=== PATIENT | male | born 1980 | race Caucasian/White ===

== ENCOUNTER → 2017-02-28 | Outpatient (CLI) | payer MEDICAID ==
--- NOTE | 2017-02-28 17:42 | Diagnostic Imaging Report ---
INDICATION: Scalp mass. FINDINGS: There is a 6.5 x 1.1 x 6.4 cm hypoechoic lesion along the superior convexity of the left aspect of the parietal skull. This is superficial to the outer table of the skull. This does not demonstrate evidence of significant vascularity. IMPRESSION: 1. Nonspecific lesion within the soft tissues of the left scalp. This does not demonstrate evidence of significant vascularity. Considerations would include a hematoma or a soft tissue mass. Further characterization with cross-sectional imaging is recommended. CT would be useful to evaluate for any osseous changes or erosion. MRI with contrast would be useful for complete characterization. Dictated by: Dictated on workstation # [id number]
== END ==
LOC: RAD 16:26
PROVIDERS: ATTEND Nurse Practitioner Community Health
DX: R22.0 Localized swelling, mass and lump, head (principal)
CPT/HCPCS: 76536

== ENCOUNTER 2017-03-14 08:53 | Outpatient (CLI) | payer MEDICAID ==
[~2017-03-14] VITALS: Ht 177.8 cm; Wt 86.2 kg
[2017-03-16] MEDS ORDERED: HYDR-3812 PO (10:10)
== END 2017-03-14 10:53 ==
LOC: PREOP 08:53
PROVIDERS: ATTEND Surgery
DX: Z01.818 Encounter for other preprocedural examination (principal); R22.0 Localized swelling, mass and lump, head; R22.2 Localized swelling, mass and lump, trunk

== ENCOUNTER 2017-03-16 07:35 | Day surgery (SDC) | payer MEDICAID ==
[~2017-03-16] VITALS: Ht 177.8 cm; Wt 86.2 kg
--- NOTE | 2017-03-16 07:51 | Progress Note-Pre Operative ---
Pre-Operative Progress Note H&P Reviewed The H&P was reviewed, patient examined and no changes noted. Date Seen by Provider: Mar 16, 2017 Time Seen by Provider: 07:50 Date H&P Reviewed: Mar 16, 2017 Time H&P Reviewed: 07:50 Pre-Operative Diagnosis: head and back mass BEENA VAZQUEZ DO Mar 16, 2017 07:51
[2017-03-16] MEDS ORDERED: CATHETER FLUSH 10 ML SYR IV PRN (08:00)
[2017-03-16] MEDS ORDERED: ceFAZolin 2 GM/NS 50 ML IV ONE (08:00)
[2017-03-16] MEDS ORDERED: LIDOCAINE JELLY 2% (XYLOCAINE) 5 ML TUBE ONE (08:00)
[2017-03-16] MEDS ORDERED: MIDAZOLAM 2 MG/2 ML (VERSED) VIAL ONE (08:00)
[2017-03-16] MEDS ORDERED: proPOfol 200 MG/20 ML (DIPRIVAN) VIAL IV ONE (08:00)
[2017-03-16] MEDS ORDERED: LACTATED RINGERS 1,000 ML IV ONE (08:00)
[2017-03-16] MEDS ORDERED: LIDOCAINE PF 2% 5 ML (XYLOCAINE) VIAL ONE (08:00)
[2017-03-16] MEDS ORDERED: ROCURONIUM 50 MG/5 ML (ZEMURON) VIAL IV ONE (08:00)
[2017-03-16] MEDS ORDERED: ONDANSETRON 4 MG/2 ML (SDV) Z0FRAN ONE (08:00)
[2017-03-16] MEDS ORDERED: fentaNYL INJECTION 100 MCG/2 ML AMP ONE (08:01)
[2017-03-16 08:18] VITALS: BP 135/103
[2017-03-16] MEDS ORDERED: LACTATED RINGERS 1,000 ML IV SCH (08:30)
[2017-03-16] MEDS ORDERED: BUPIVACAINE 0.5% 30 ML (SENSORCAINE) VIAL ONE (08:34)
[2017-03-16] MEDS ORDERED: LIDOCAINE 1% INJ 20 ML (XYLOCAINE) VIAL ONE (08:34)
[2017-03-16] MEDS ORDERED: morphine INJ 10 MG/ML 1ML (SYR OR VIAL) ONE (09:23)
[2017-03-16] MEDS ORDERED: HYDR-3812 PO (10:10)
--- NOTE | 2017-03-16 10:11 | Discharge Inst-Simple/Standard ---
Discharge Inst-Standard Discharge Medications New, Converted or Re-Newed RX: RX on Chart Patient Instructions/Follow Up Plan of Care/Instructions/FU: 10-14 days sole Activity as Tolerated: Yes Discharge Diet: Regular Diet Other Inst to Patient Follow up Appt: Make appointment for 10-14 days Instructions: May shower in 24 hours, no tub bath or soaking. Use incentive spirometer at home as directed. No Smoking Skin/Wound Care: May remove bandages in 24 hours. Keep area clean and dry. Symptoms to Report: Appetite Changes, Extremity Discoloration, Numbness/Tingling, Swelling Increased , Bleeding Excessive, Eyesight Changes, Pain Increased, Urine Color Change, Constipation(Persistent), Fever over 101 degree F, Pain/Pressure in chest, Urinating Difficulty, Cough Up/Vomit Blood, Heart Beat Irreg/Pounding, Pain/ Pressure in jaw, Vaginal Bleeding Increase, Cramps in feet or legs, Lightheadedness, Pain/Pressure in shoulder, Diarrhea(Persistent), Memory Changes Suddenly, Questions/Concerns, Weight gain consecutive days, Dizziness/ Fainting, Nausea/Vomiting, Shortness of Breath, Weight gain over 2 pounds If questions or concerns contact your physician Or seek help at emergency department. BEENA VAZQUEZ DO Mar 16, 2017 10:11
--- NOTE | 2017-03-16 10:12 | Progress Note-Post Operative ---
Post-Operative Progess Note Surgeon (s)/Patient Case Coordinator (s) Surgeon BEENA VAZQUEZ DO Patient Case Coordinator: na Pre-Operative Diagnosis head and back mass Post-Operative Diagnosis lipoma head and back Procedure & Operative Findings Date of Procedure 03/16/17 Procedure Performed/Findings excision scalp lipoma 7x5.5x1.2 cm and back lipoma [id number] Anesthesia Type gen Estimated Blood Loss Estimated blood loss (mL): min Specimens/Packing Specimens Removed lipomas BEENA VAZQUEZ DO Mar 16, 2017 10:12
[2017-03-16] MEDS ORDERED: SEVOFLURANE (ULTANE) 15 ML INHAL SOLN ONE (10:14)
[2017-03-16] MEDS ORDERED: ONDANSETRON 4 MG/2 ML (SDV) Z0FRAN IVP PRN (10:30)
[2017-03-16] MEDS ORDERED: MEPERIDINE (DEMEROL) INJ 50 MG/ML IVP PRN (10:30)
[2017-03-16] MEDS ORDERED: morphine INJ 10 MG/ML 1ML (SYR OR VIAL) IVP PRN (10:30)
[2017-03-16 11:10] VITALS: BP 138/86
[2017-03-16] MEDS ORDERED: HYDROcodone/APAP 5 MG/325 MG (LORTAB) TAB PO ONE (11:15)
[2017-03-16 11:40] VITALS: BP 130/97
[2017-03-16 11:50] VITALS: BP 130/97
[2017-03-16 12:26] VITALS: BP 138/96
--- NOTE | 2017-03-17 11:43 | OPERATIVE REPORT ---
DATE OF SERVICE: 03/16/2017 PREOPERATIVE DIAGNOSIS: Scalp and back mass. POSTOPERATIVE DIAGNOSIS: Scalp and back mass. PROCEDURE: Excision lipoma scalp 7 x 5.5 x 1.2 cm and back 3.5 x 3 x 1 cm. SURGEON: Beena Burgess DO ANESTHESIA: General. ESTIMATED BLOOD LOSS: Minimal. COMPLICATIONS: None. INDICATIONS: The patient is a 36-year-old male who has had a mass on the scalp and back and cause him some slight discomfort. He understands risks and benefits of procedures and wished to proceed with procedure. Consent was signed in the chart. PROCEDURE: The patient was taken to the operating suite and prepped and draped in sterile fashion. Surgical pause was performed. An incision was made over the palpable mass in the back. Cautery was used to dissect down through skin and the lipoma was encountered. Blunt dissection around it was used to evacuate the lipoma. The above measurements on size noted. This was in the subcutaneous plane. Copious amounts of irrigation was used to irrigate the wound. The subcutaneous tissues were then reapproximated using 3-0 Vicryl. Skin was then closed using 3-0 nylon in a simple interrupted fashion. The area was then washed and dried and sterile bandage was applied. Attention was then made to the large scalp mass. A #15 blade scalpel was used to make an incision over the palpable mass. Once through the skin, the cautery was used to dissect down through the subcutaneous tissues. The mass was then able to be visualized. The finger dissection was used to dissect around the mass, which appears to be a lipoma. Once around this, it was able to be removed through the incision. Copious amounts of irrigation was used to irrigate the wound and the skin was then closed with myles. The area was then washed and dried and antibiotic ointment was then placed over the incision. The patient tolerated procedure well without any complications and was taken to recovery room in stable condition. Job ID: [id number] DocumentID: [id number] Dictated Date: 03/16/2017 14:58:24 Automobile Dealer Date: 03/16/2017 22:38:30 Dictated By: BEENA BURGESS DO
== END 2017-03-16 11:50 | disposition home or self-care (01) ==
LOC: SDC 07:35
PROVIDERS: ATTEND Surgery
DX: D17.0 Benign lipomatous neoplasm of skin and subcutaneous tissue of head, face and neck (principal); D17.1 Benign lipomatous neoplasm of skin and subcutaneous tissue of trunk; F17.210 Nicotine dependence, cigarettes, uncomplicated
CPT/HCPCS: 87081; 88304

== ENCOUNTER 2019-05-17 14:02 | Inpatient (IN) | payer OTHER ==
[~2019-05-17] VITALS: Ht 177 cm; Wt 76.7 kg
[2019-05-17] VITALS (12 sets, daily range): BP systolic 104–138; BP diastolic 79–97
[~2019-05-17 14:02] MED LIST: ACHD5005 PO
--- NOTE | 2019-05-17 14:02 | NUR ---
RIGHT LEG DEFORMITY NOTED ET POSITVE PEDAL PULSE FELT.
[2019-05-17] MEDS ORDERED: fentaNYL INJECTION 100 MCG/2 ML AMP INJ ONE (14:04)
--- NOTE | 2019-05-17 14:06 | NUR ---
PT TALKING TO CASTING SORTER ET PT REQUEST AN DIRECTOR CONSUMER AFFAIRS.
--- NOTE | 2019-05-17 14:10 | NUR ---
JENSEN SPLINT BEING APPLIED TO RIGHT LEG AT THIS TIME.
[2019-05-17] MEDS ORDERED: fentaNYL INJECTION 100 MCG/2 ML AMP IVP ONE ×4 (14:15→17:30)
--- NOTE | 2019-05-17 14:16 | NUR ---
POSITIVE PEDAL PULSE FELT BY DR RICCI AFTER SPLINT PLACED
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
--- NOTE | 2019-05-17 14:19 | NUR ---
NO PULSE FELT RIGHT FOOT BY DR DIAZ.
[2019-05-17 14:21] LABS: HEMOGLOBIN 16.3 G/DL (13.3-17.7); RED CELL DISTRIBUTION WIDTH 13.4 % (10.0-14.5)
--- NOTE | 2019-05-17 14:21 | NUR ---
PEDAL PULSE DOPPLERED BY DR DIAZ ET JENSEN TRACTION REAPPLIED.
--- NOTE | 2019-05-17 14:23 | NUR ---
NO PULSE FELT BY DR DIAZ ET TRACTION LOOSENED ET PULSE HEARD BY DOPPLER BY DR DIAZ. DR DIAZ AND ORTHO TEAM ROLLING PT WITH C-SPINE PERCAUTIONS AT THIS TIME.
--- NOTE | 2019-05-17 14:27 | NUR ---
NEEDLE TO LEFT CHEST REMOVED BY MARANDA Colon RN PER DR DIAZ VERBAL ORDER AFTER REVIEWING CHEST XRAY. LEFT DEFORMED CLAVICLE NOTED AT THIS TIME ET DR DIAZ AWARE.
--- NOTE | 2019-05-17 14:29 | NUR ---
RIGHT PEDAL PULSE DOPPLERED BEFORE TRANSPORT TO CT.
[2019-05-17] MEDS ORDERED: NS 100 ML (IVPB) BAG IV ONE (14:30)
[2019-05-17] MEDS ORDERED: IOHEXOL 350 MG/ML 100 ML (OMNIPAQUE 350) VIAL IV ONE (14:30)
[2019-05-17] MEDS ORDERED: HOLD METFORMIN - RECEIVED CONTRAST 20 ML VIAL IV SCH (14:30)
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
[2019-05-17 14:43] LABS: ALANINE AMINOTRANSFERASE 256 U/L (0-55); ALBUMIN 4.4 GM/DL (3.2-4.5); ALKALINE PHOSPHATASE 53 U/L (40-136); BILIRUBIN,DIRECT 0.1 MG/DL (0.0-0.3); BILIRUBIN,INDIRECT 0.2 MG/DL; BILIRUBIN,TOTAL 0.3 MG/DL (0.1-1.0); BUN/CREATININE RATIO 11; CALCIUM 8.7 MG/DL (8.5-10.1); CARBON DIOXIDE 20 MMOL/L (21-32); CHLORIDE 106 MMOL/L (98-107); CREATINE KINASE 581 U/L (30-200); CREATININE SERUM 1.06 MG/DL (0.60-1.30); GFR ESTIMATED > 60; GLUCOSE 103 MG/DL (70-105); MAGNESIUM 2.3 MG/DL (1.6-2.4); PHOSPHORUS 3.9 MG/DL (2.3-4.7); POTASSIUM 3.9 MMOL/L (3.6-5.0); SODIUM 142 MMOL/L (135-145); TOTAL PROTEIN 7.4 GM/DL (6.4-8.2)
[2019-05-17 14:55] LABS: FIBRIN DEGRADATION PRODUCTS 14.84 UG/ML (0.00-0.49); PROTHROMBIN TIME PATIENT 13.1 SEC (12.2-14.7)
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
--- NOTE | 2019-05-17 15:41 | NUR ---
SHERIFF SMALLT HERE FOR LEGAL BLOOD DRAW.
[2019-05-17 15:44] LABS: BILIRUBIN,URINE NEGATIVE (NEGATIVE); CLARITY,URINE CLEAR; COLOR,URINE YELLOW; GLUCOSE, URINE (UA) NEGATIVE (NEGATIVE); KETONES,URINE NEGATIVE (NEGATIVE); LEUKOCYTE ESTERASE ,URINE NEGATIVE (NEGATIVE); NITRITE,URINE NEGATIVE (NEGATIVE); PROTEIN,URINE TRACE (NEGATIVE)
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
[2019-05-17] MEDS ORDERED: NS IV 1000 ML 1,000 ML IV ONE (15:48)
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
[2019-05-17 15:57] LABS: BACTERIA,URINE NEGATIVE /HPF; HYALINE CASTS, URINE 0-2 /LPF
[2019-05-17 15:58] LABS: AMPHETAMINE SCREEN, URINE NEGATIVE (NEGATIVE); BARBITURATE SCREEN URINE NEGATIVE (NEGATIVE); BENZODIAZEPINES SCREEN URINE NEGATIVE (NEGATIVE); CANNABINOID SCREEN, URINE POSITIVE (NEGATIVE); COCAINE SCREEN URINE NEGATIVE (NEGATIVE); METHADONE STAT NEGATIVE (NEGATIVE); METHAMPHETAMINE SCREEN URINE S NEGATIVE (NEGATIVE); OPIATE SCREEN URINE POSITIVE (NEGATIVE); OXYCODONE STAT NEGATIVE (NEGATIVE); PROPOXYPHENE STAT NEGATIVE (NEGATIVE); TRICYCLIC ANTIDEPRESSANTS SCRE NEGATIVE (NEGATIVE)
[2019-05-17] MEDS ORDERED: ceFAZolin 2 GM/50 ML NS 50 ML IV ONE (16:00)
[2019-05-17] MEDS ORDERED: TETANUS,DIPTH,PERTUSS P/F (BOOSTRIX) 0.5 ML VIAL IM ONE (16:00)
--- NOTE | 2019-05-17 16:12 | NUR ---
KARINE FROM ANESTHESIA HERE.
--- NOTE | 2019-05-17 16:15 | NUR ---
TO XRAY WITH RADIOLOGY AND THIS RN
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
--- NOTE | 2019-05-17 16:36 | NUR ---
RIGHT PEDAL PULSE DOPPLERED WITHOUT DIFFICULTY.
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
[2019-05-17] MEDS ORDERED: ONDANSETRON 4 MG/2 ML (SDV) Z0FRAN ONE ×2 (16:54→20:54)
[2019-05-17] MEDS ORDERED: LIDOCAINE PF 2% 5 ML (XYLOCAINE) VIAL ONE (16:54)
[2019-05-17] MEDS ORDERED: SUCCINYLCHOLINE INJ 100 MG/5 ML SYR ONE (16:54)
[2019-05-17] MEDS ORDERED: proPOfol 200 MG/20 ML (DIPRIVAN) VIAL IV ONE ×2 (16:54→20:10)
[2019-05-17] MEDS ORDERED: morphine INJ 10 MG/ML 1ML (SYR OR VIAL) IVP STA (16:55)
--- NOTE | 2019-05-17 16:56 | NUR ---
DR GRECO HERE TO SEE PT.
[2019-05-17] MEDS ORDERED: MIDAZOLAM 2 MG/2 ML (VERSED) VIAL ONE (17:07)
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
[2019-05-17] MEDS ORDERED: morphine INJ 10 MG/ML 1ML (SYR OR VIAL) IVP ONE (17:30)
[2019-05-17] MEDS ORDERED: ONDANSETRON 4 MG/2 ML (SDV) Z0FRAN IVP PRN ×2 (17:30→19:00)
[2019-05-17] MEDS ORDERED: MEPERIDINE (DEMEROL) INJ 50 MG/ML IVP ONE (17:30)
[2019-05-17] MEDS ORDERED: HYDROmorphone 2 MG/ML VIAL (DILAUDID) IV ONE (17:30)
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
[2019-05-17] MEDS: LACTATED RINGERS 1,000 ML IV PRN ×2 (17:46→19:38)
[2019-05-17] MEDS ORDERED: ceFAZolin INJECTION 2,000 MG ONE (17:56)
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
[2019-05-17] MEDS ORDERED: ceFAZolin 2 GM/50 ML NS 50 ML IV SCH (18:00)
[2019-05-17] MEDS ORDERED: PHENYLEPHRINE INJ 10 MG/ML (FOR DRIP KITS ONLY) ONE (18:26)
[2019-05-17] MEDS ORDERED: fentaNYL INJECTION 100 MCG/2 ML AMP ONE (18:37)
[2019-05-17] MEDS ORDERED: morphine INJ 10 MG/ML 1ML (SYR OR VIAL) IVP PRN ×2 (19:00→22:45)
[2019-05-17] MEDS ORDERED: ENOXAPARIN 30 MG/0.3 ML (LOVENOX) SYR SC SCH (19:00)
[2019-05-17] MEDS ORDERED: NEO/POLY/BAC (NEOSPORIN) OINT 15 GM TUBE ONE (19:40)
[2019-05-17] MEDS ORDERED: ceFAZolin INJECTION 1,000 MG VIAL IV ONE (19:45)
[2019-05-17] MEDS ORDERED: ESMOLOL 100 MG/10 ML (BREVIBLOC) VIAL ONE (19:53)
--- NOTE | 2019-05-17 20:23 | Diagnostic Imaging Report ---
INDICATION: Left-sided pneumothorax. COMPARISON: 05/17/2019. EXAMINATION: Single view of the chest was obtained. FINDINGS: Multiple left-sided rib fractures. There is some increasing infiltrate in the left upper lobe concerning for a pulmonary contusion. There is some new irregularity involving the left upper mediastinum. Vascular injury is not excluded. There is no definable pneumothorax. The right lung is clear. ET tube and NG tube are in good position. IMPRESSION: 1. Worsening left upper lobe pulmonary contusion with some new findings to suggest mediastinal injury. Consider repeat CTA of the chest. 2. Multiple left upper rib fractures with associated left clavicle fracture. 3. No definable pneumothorax. 4. Well-positioned ET tube and NG tube. Dictated by: Dictated on workstation # [id number]
[2019-05-17] MEDS ORDERED: SEVOFLURANE (ULTANE) 15 ML INHAL SOLN ONE ×3 (20:29→20:54)
[2019-05-17] MEDS ORDERED: ROCURONIUM 10 MG/ML 5 ML SYRINGE IV ONE ×2 (20:50)
[2019-05-17] MEDS: LACTATED RINGERS 1,000 ML IV SCH (21:35)
--- NOTE | 2019-05-17 21:40 | Operative Report - Ortho ---
Operative Report Surgeon (s)/Environmental Compliance Engineer (s) Surgeon ZANE GRECO MD Environmental Compliance Engineer n/a Pre-Operative Diagnosis midshaft fracture right femur; medial malleolar fracture left ankle Post-Operative Diagnosis same Operative Report Date of Procedure: May 17, 2019 Name of Procedure Performed: Closed IM rodding right femur fracture Open reduction internal fixation left medial malleolar fracture Irrigation of partial-thickness laceration left elbow with closure Description & Findings The patient was evaluated in the ER and treatment options were discussed. I recommended an IM rodding of the right femur and open reduction internal fixation of the left medial malleolus. Also he has a wound posterior left elbow that is partial thickness but I recommended closure with myles Patient was taken to operating room on the ER stretcher. After administration of general anesthesia he was transferred to the OR fracture table. He was given 2 g Ancef IV preoperatively. A timeout was done prior to the procedure. The right hip and thigh were then prepped and draped in the usual sterile manner. The right foot was placed in the traction boot traction was applied to the leg. Images used to visualize the fracture and the fracture could be lined up fairly well and out to length with traction countertraction with peroneal post. The left leg was placed in the well leg matos. An incision was made just proximal to the greater trochanter. This was taken down through subjacent tissue and through the gluteal fascia. The greater trochanter was palpated and a guidepin was placed through the tip of the greater trochanter slightly medial. This was then overreamed. The initial guidewire was removed and a beaded guidewire was inserted through the opening to the fracture site. The fracture was reduced with the reduction device and the guidewire was advanced across the fracture site into the distal femur. This was measured and a 400 mm mukesh was selected. The femur was reamed sequentially from 8.5-13 mm with good endosteal reaming just proximal to the fracture. A 12 mm x 4 mm mukesh was selected. This was inserted over the guidewire and there was some difficulty advancing it just distal to the lesser trochanter. Evaluation of the femur revealed an abnormal bow. The mukesh was removed and the proximal segment was reamed up to 16 mm to allow advancement of the mukesh without any difficulty. The advancement the mukesh was observed with image and at the fracture site was gently tapped across fracture site into the distal femur. This reduced the fracture very well. There was some comminution of the femur at the fracture site. The mukesh was advanced to approximately the level of the upper patella. At this point it was felt that rotation was correct and 2 screws were placed proximally through the guide dynamic and one static from lateral to medial at the level of the lesser trochanter. These were drilled measured and appropriate length screws were inserted. At this point the leg was brought out into abduction. Traction was removed prior to inserting the mukesh distally but once the tip of the mukesh was beyond the fracture. Images brought into lateral to place the distal screws. The initial slot screw was inserted after drilling measuring and inserting the appropriate length screw. Next the proximal round hole was filled with a distal locking screw again drilling measuring and inserting the appropriate length screws. Freehand technique was used for the distal screws. Image was used to visualize the entire femur and excellent alignment was noted at the fracture site. Cortical widths was equal. Screws are in good position proximal and distal. This point the wounds were irrigated with normal saline. The proximal wound was closed with 0 Vicryl for fascia 2-0 Vicryl for subcutaneous tissue and myles for skin. The neck incisions for the 4 screws were closed with myles. Wounds were dressed with antibiotic ointment, Adaptic and 4 x 4's. An ABG was applied proximally. These were taped in position. The dressings were removed and rotation was checked. The patient had equal rotation internally and externally both legs. At this point the right foot was taken out of the traction boot and the lower portion of the bed was reinserted. The left leg was taken out of the well leg matos. A tourniquet was applied to left thigh and the left foot and lower leg were prepped and draped in the usual sterile manner. After elevation of the leg during the prepping and draping the tourniquet was inflated to 250 mmHg. Incision was made over the medial malleolus avoiding superficial abrasions. This is taken down through subjacent tissue. The periosteum was elevated over the fracture site. The fracture was reduced and held with a reduction clamp is 2 guidewires were inserted through the tip of the medial malleolus across fracture site into the distal tibia. 2-4.0 mm cannulated partially-threaded screws were then inserted after drilling the cortex and then inserting the screws over guidewires. Images used to visualize the fracture reduction and screw insertion and excellent alignment was noted. The mortise was symmetrical. No widening of the syndesmosis. No fracture of the distal fibula was noted. At this point the guidewires were removed. The tourniquet was deflated after 44 minutes. The wound was irrigated and then closed with 2-0 Vicryl for subjacent tissue and myles for the skin. Wound was dressed with antibiotic ointment, Adaptic and 4 x 4's and then wrapped with web roll from the toes to the tibial tuberosity. A posterior sugar tong splint was applied and these were wrapped with Ra wraps. Once the splint had hardened with the ankle at 90 the foot and ankle were placed on pillows. Prior to addressing the left elbow was scrubbed with a scrub brush and prepped. The wound was cleaned. The wound was closed with myles. It was dressed with antibiotic ointment, Adaptic and 4 x 4's and wrapped with Kerlix and an Ra wrap. The patient was then transferred to his hospital bed and to recovery room in good condition he tolerated procedure well Blood loss on the femur was 100 mL's. Left ankle was 20 mL. blood replacementnone No drains Complications Tourniquet time left leg was 44 minutes at 250 mmHg Anesthesia Type Gen. Packing none. Specimen(s) collected/removed None ZANE GRECO MD May 17, 2019 21:40
[2019-05-17] MEDS ORDERED: ceFAZolin INJECTION 500 MG in NS (IVPB) 50 ML IV SCH (22:00)
[2019-05-17] MEDS ORDERED: morphine INJ 4 MG/ML 1 ML (VIAL/SYRINGE) ONE (22:35)
[2019-05-17] MEDS: morphine INJ 4 MG/ML 1 ML (VIAL/SYRINGE) IVP PRN (22:47)
[2019-05-18] VITALS (22 sets, daily range): BP systolic 86–145; BP diastolic 59–98
[2019-05-18] MEDS: morphine INJ 4 MG/ML 1 ML (VIAL/SYRINGE) IVP PRN (00:24)
[2019-05-18] MEDS ORDERED: HYDROmorphone 2 MG/ML VIAL (DILAUDID) IV ONE (01:15)
[2019-05-18] MEDS: LACTATED RINGERS 1,000 ML IV SCH (02:32)
[2019-05-18 03:05] LABS: BASOPHILS % (AUTO) 0 % (0-10); EOSINOPHILS % (AUTO) 0 % (0-10); HEMATOCRIT 37 % (40-54); HEMOGLOBIN 12.6 G/DL (13.3-17.7); LYMPHOCYTES # (AUTO) 0.7 X 10^3 (1.0-4.0); LYMPHOCYTES % (AUTO) 5 % (12-44); MEAN CORPUSCULAR HEMOGLOBIN 31 PG (25-34); MEAN CORPUSCULAR HGB CONC 34 G/DL (32-36); MEAN CORPUSCULAR VOLUME 89 FL (80-99); MEAN PLATELET VOLUME 9.7 FL (7.4-10.4); MONOCYTES # (AUTO) 1.9 X 10^3 (0.0-1.0); MONOCYTES % (AUTO) 13 % (0-12); NEUTROPHILS # (AUTO) 12.1 X 10^3 (1.8-7.8); NEUTROPHILS % (AUTO) 82 % (42-75); PLATELET COUNT 282 10^3/uL (130-400); RED CELL DISTRIBUTION WIDTH 13.1 % (10.0-14.5); WHITE BLOOD COUNT 14.7 10^3/uL (4.3-11.0)
[2019-05-18 03:28] LABS: BUN/CREATININE RATIO 14; CALCIUM 7.9 MG/DL (8.5-10.1); CARBON DIOXIDE 16 MMOL/L (21-32); CHLORIDE 108 MMOL/L (98-107); CREATININE SERUM 1.22 MG/DL (0.60-1.30); GFR ESTIMATED > 60; GLUCOSE 182 MG/DL (70-105); MAGNESIUM 1.6 MG/DL (1.6-2.4); SODIUM 141 MMOL/L (135-145)
[2019-05-18] MEDS ORDERED: NS IV 1000 ML 1,000 ML ONE (03:41)
[2019-05-18] MEDS ORDERED: SODIUM BICARB 8.4% 50 MEQ/50 ML VIAL ONE (03:41)
[2019-05-18] MEDS: ceFAZolin 2 GM/50 ML NS 50 ML IV SCH ×3 (03:54→18:11)
[2019-05-18] MEDS ORDERED: SODIUM BICARB 8.4% 50 MEQ/50 ML (ABBOTT) SYR IV ONE (04:00)
[2019-05-18] MEDS ORDERED: LORazepam INJ 2 MG/ML (ATIVAN) VIAL IV PRN (04:00)
[2019-05-18] MEDS ORDERED: NS IV 1000 ML 1,000 ML IV SCH (04:00)
[2019-05-18] MEDS: HYDROmorphone 2 MG/ML VIAL (DILAUDID) IV PRN ×9 (04:16→22:22)
[2019-05-18] MEDS: NS IV 1000 ML 1,000 ML IV SCH ×2 (06:56→15:20)
[2019-05-18 06:58] LABS: HEMOGLOBIN 11.2 G/DL (13.3-17.7)
[2019-05-18] MEDS ORDERED: FLU QUADRIvalent (5+ YOA) 2019-2020 (AFLURIA) 0.5 ML IM ONE (07:15)
--- NOTE | 2019-05-18 07:50 | Anesthesia-General Post-Op ---
General Patient Condition Mental Status/LOC: Same as Preop Cardiovascular: Satisfactory Nausea/Vomiting: Absent Respiratory: Satisfactory Pain: Controlled Complications: Absent Post Op Complications Complications None Follow Up Care/Instructions Patient Instructions None needed. Anesthesia/Patient Condition Patient Condition Patient is doing well, no complaints, stable vital signs, no apparent adverse anesthesia problems. No complications reported per nursing. EUSEBIO AHN CRNA May 18, 2019 07:50
--- NOTE | 2019-05-18 08:13 | Diagnostic Imaging Report ---
INDICATION: Fluoroscopy for right femur ORIF. 173 seconds of fluoroscopic time was utilized during performance of ORIF of right femur fracture. Intramedullary mukesh is noted. Alignment appears anatomic. IMPRESSION: Fluoroscopy for right femur ORIF. Dictated by: Dictated on workstation # [id number]
--- NOTE | 2019-05-18 08:13 | Diagnostic Imaging Report ---
INDICATION: Fluoroscopy for left ankle ORIF. Fluoroscopy was provided during left ankle ORIF. 6 seconds of fluoroscopic time was utilized. Images demonstrate placement of 2 partially threaded screws transfixing the medial malleolus. Alignment appears anatomic. IMPRESSION: Fluoroscopy for left ankle ORIF. Dictated by: Dictated on workstation # [id number]
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
[2019-05-18] MEDS: PANTOPRAZOLE 40 MG (PROTONIX) VIAL IVP SCH (09:33)
[2019-05-18] MEDS: ENOXAPARIN 30 MG/0.3 ML (LOVENOX) SYR SC SCH (09:33)
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
--- NOTE | 2019-05-18 12:48 | Progress Note - Surgery ---
Subjective Time Seen by a Provider: 12:11 Subjective/Events-last exam Pt seen and examined, states he still has pain with deep breaths. I actually was in last night at appx 3am and he looks the same; no respiratory distress. Pt repeat CXR shows about 50% pneumothorax; worse than CXR after surgery. Review of Systems General: No Chills Pulmonary: No Dyspnea, No Cough; Pleuritic Chest Pain Cardiovascular: No: Palpitations, Edema Gastrointestinal: No: Nausea, Vomiting, Abdominal Pain Focused Exam Lactate Level 05/17/19 15:38: Lactic Acid Level 3.13*H Objective Exam Vital Signs Date Time Temp Pulse Resp B/P (MAP) Pulse Ox O2 Delivery O2 Flow Rate FiO2 05/18/19 12:30 97 05/18/19 12:00 36.6 05/18/19 11:56 96 Nasal Cannula 2.00 05/18/19 11:00 101 11 135/81 (99) 94 Nasal Cannula 2.00 05/18/19 10:00 114 11 94 Nasal Cannula 2.00 05/18/19 09:00 101 132/91 (105) Nasal Cannula 2.00 05/18/19 08:00 115 26 134/96 (109) 96 Nasal Cannula 2.00 05/18/19 08:00 36.7 115 26 134/96 (109) 95 Nasal Cannula 2.00 2.00 05/18/19 08:00 95 Nasal Cannula 2.00 05/18/19 07:00 105 20 117/86 (96) 91 Nasal Cannula 2.00 05/18/19 07:00 107 05/18/19 06:00 112 20 86/61 (69) 93 Nasal Cannula 2.00 05/18/19 05:00 115 13 132/59 (83) 92 Nasal Cannula 2.00 05/18/19 04:00 96 Nasal Cannula 2.00 05/18/19 04:00 124 21 122/84 (97) 96 Nasal Cannula 2.00 05/18/19 03:48 Nasal Cannula 2.00 05/18/19 03:00 134 15 127/98 (108) 93 OxyMask 2.00 05/18/19 02:00 120 14 123/95 (104) 96 OxyMask 2.00 05/18/19 01:00 126 05/18/19 01:00 123 20 121/88 (99) 94 OxyMask 2.00 05/18/19 00:00 134 12 115/88 (97) 96 OxyMask 2.00 05/18/19 00:00 99 Nasal Cannula 2.00 05/17/19 23:15 131 18 128/95 (106) 100 OxyMask 2.00 05/17/19 23:00 131 16 120/84 (96) 94 OxyMask 2.00 05/17/19 22:48 98 Nasal Cannula 3.00 05/17/19 22:45 142 15 120/79 (93) 92 OxyMask 2.00 05/17/19 22:30 133 18 115/95 (102) 99 OxyMask 2.00 05/17/19 22:15 92 OxyMask 2.00 05/17/19 22:15 36.7 131 18 138/94 (109) 99 OxyMask 2.00 05/17/19 22:05 37.4 18 122/85 (97) 93 OxyMask 2 05/17/19 22:05 OxyMask 2 05/17/19 22:00 18 125/87 (100) 93 OxyMask 3 05/17/19 21:50 22 122/89 (100) 94 OxyMask 3 05/17/19 21:45 OxyMask 5 05/17/19 21:40 21 114/82 (93) 98 OxyMask 3 05/17/19 21:37 121 05/17/19 21:30 12 118/97 (104) 93 OxyMask 5 05/17/19 21:30 OxyMask 5 05/17/19 21:20 25 104/90 (95) 93 OxyMask 5 05/17/19 21:17 OxyMask 5 05/17/19 21:17 37.2 16 135/91 (106) 93 OxyMask 5 05/17/19 17:41 128 13 126/89 93 Non Rebreather 05/17/19 14:02 Non Rebreather 10.00 I & O 05/18/19 07:00 Intake Total 3870 ml Output Total 850 ml Balance 3020 ml Capillary Refill : Less Than 3 SecondsLess Than 3 Seconds General Appearance: No Apparent Distress, WD/WN HEENT: Moist Mucous Membranes; No Scleral Icterus (L), No Scleral Icterus (R); Other (Pt has laceration right mandibular area, just anterior to angle) Respiratory: No Accessory Muscle Use, No Respiratory Distress, Crackles (left base, faint), Decreased Breath Sounds (Left); No Wheezing; Other (palpable left clavicle fracture) Cardiovascular: Regular Rate, Rhythm, No Murmur Gastrointestinal: soft, no organomegaly, no pulsatile mass Extremity: No Calf Tenderness, Other (Left leg in soft cast) Neurologic/Psychiatric: Alert, Oriented x3 Skin: Normal Color, Warm/Dry, Other (laceration left hand, left leg with abrasions on abdomen, right leg, chest) Results Lab Laboratory Tests 05/17/19 14:09: White Blood Count 15.0H, Red Blood Count 5.39, Hemoglobin 16.3, Hematocrit 48, Mean Corpuscular Volume 88, Mean Corpuscular Hemoglobin 30, Mean Corpuscular Hemoglobin Concent 34, Red Cell Distribution Width 13.4, Platelet Count 419H, Mean Platelet Volume 9.0, Prothrombin Time 13.1, INR Comment 1.0, Activated Partial Thromboplast Time 24, Fibrinogen 302, D-Dimer 14.84H, Sodium Level 142, Potassium Level 3.9, Chloride Level 106, Carbon Dioxide Level 20L, Anion Gap 16H , Blood Urea Nitrogen 12, Creatinine 1.06, Estimat Glomerular Filtration Rate > 60, BUN/Creatinine Ratio 11, Glucose Level 103, Calcium Level 8.7, Phosphorus Level 3.9, Magnesium Level 2.3, Total Bilirubin 0.3, Direct Bilirubin 0.1, Indirect Bilirubin 0.2, Aspartate Amino Transf (AST/SGOT) 477H, Alanine Ami notransferase (ALT/SGPT) 256H, Alkaline Phosphatase 53, Total Creatine Kinase 581H, Total Protein 7.4, Albumin 4.4, Serum Alcohol 171H 05/17/19 15:35: Urine Color YELLOW, Urine Clarity CLEAR, Urine pH 7.0, Urine Specific [place] <=1.005, Urine Protein TRACE, Urine Glucose (UA) NEGATIVE, Urine Ketones NEGATIVE, Urine Nitrite NEGATIVE, Urine Bilirubin NEGATIVE, Urine Urobilinogen 0.2, Urine Leukocyte Esterase NEGATIVE, Urine RBC (Auto) 3+H, Urine RBC 2-5H, Urine WBC NONE, Urine Crystals NONE, Urine Bacteria NEGATIVE, Urine Casts PRESENT, Urine Hyaline Casts 0-2H, Urine Mucus NEGATIVE, Urine Culture Indicated NO, Urine Opiates Screen POSITIVEH, Urine Oxycodone Screen NEGATIVE, Urine Methadone Screen NEGATIVE, Urine Propoxyphene Screen NEGATIVE, Urine B arbiturates Screen NEGATIVE, Ur Tricyclic Antidepressants Screen NEGATIVE, Urine Phencyclidine Screen NEGATIVE, Urine Amphetamines Screen NEGATIVE, Urine Methamphetamines Screen NEGATIVE, Urine Benzodiazepines Screen NEGATIVE, Urine Cocaine Screen NEGATIVE, Urine Cannabinoids Screen POSITIVEH 05/17/19 15:38: Lactic Acid Level 3.13*H 05/18/19 02:29: White Blood Count 14.7H, Red Blood Count 4.12L, Hemoglobin 12.6#L, Hematocrit 37L, Mean Corpuscular Volume 89, Mean Corpuscular Hemoglobin 31, Mean Corpuscular Hemoglobin Concent 34, Red Cell Distribution Width 13.1, Platelet Count 282, Mean Platelet Volume 9.7, Sodium Level 141, Potassium Level 5.0, Chloride Level 108H, Carbon Dioxide Level 16L, Anion Gap 17H, Blood Urea Nitrogen 17, Creatinine 1.22, Estimat Glomerular Filtration Rate > 60, BUN/Creatinine Ratio 14, Glucose Level 182H, Calcium Level 7.9L, Phosphorus Level 5.0H, Magnesium Level 1.6, Neutrophils (%) (Auto) 82H, Lymphocytes (%) (Auto) 5L, Monocytes (%) (Auto) 13H, Eosinophils (%) (Auto) 0, Basophils (%) (Auto) 0, Neutrophils # (Auto) 12.1H, Lymphocytes # (Auto) 0.7L, Monocytes # (Auto) 1.9H, Eosinophils # (Auto) 0.0, Basophils # (Auto) 0.0 05/18/19 06:49: Hemoglobin 11.2L, Hematocrit 33L Assessment/Plan Assessment/Plan Assessment/Plan Left Pneumothorax and Hemothorax - worse today Pneumothorax - Right Left rib Fx 2-3 Left Clavicle fx Left Scapular fx Right Femur Fx - comminuted and displaced Left ankle fx Nasal bone fx Alcohol Intoxication Pulmonary Contusion Pt will need chest tube because the pneumothorax is worse. Will do a Thoravent and draw off the air and then repeat CXR; trying to avoid a large chest tube. Discussed this with the pt, risks and complications not limited to pain, bleeding, infection, scar and further damage to lung. All questions answered to his satisfaction. Pt will also need to have Left arm in sling because of clavicle fx. Clinical Quality Measures DVT/VTE Risk/Contraindication: Risk Factor Score Per Nursin RFS Level Per Nursing on Admit: 4+=Very High GINA DIAZ DO May 18, 2019 12:48
[2019-05-18] MEDS ORDERED: LIDOCAINE 1% INJ 20 ML 20 ML VIAL ONE (12:55)
--- NOTE | 2019-05-18 13:21 | Progress Note-Post Operative ---
Post-Operative Progess Note Surgeon (s)/Structural Engineering Technician (s) Surgeon GINA DIAZ DO Structural Engineering Technician: none Pre-Operative Diagnosis Left Pneumo-Hemothorax Post-Operative Diagnosis same Procedure & Operative Findings Date of Procedure 05/18/19 Procedure Performed/Findings Insertion of Thoravent Chest tube Anesthesia Type Local lidocaine Estimated Blood Loss Estimated blood loss (mL): 185ml drawn out of pleural cavity Specimens/Packing Specimens Removed none GINA DIAZ DO May 18, 2019 13:21
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
[2019-05-19] VITALS (24 sets, daily range): BP systolic 112–150; BP diastolic 64–109
[2019-05-19] MEDS: NS IV 1000 ML 1,000 ML IV SCH ×5 (00:13→23:00)
[2019-05-19] MEDS: HYDROmorphone 2 MG/ML VIAL (DILAUDID) IV PRN ×7 (00:14→20:01)
[2019-05-19 03:59] LABS: BASOPHILS % (AUTO) 0 % (0-10); EOSINOPHILS % (AUTO) 0 % (0-10); HEMATOCRIT 29 % (40-54); HEMOGLOBIN 9.6 G/DL (13.3-17.7); LYMPHOCYTES % (AUTO) 9 % (12-44); MEAN CORPUSCULAR HEMOGLOBIN 30 PG (25-34); MEAN CORPUSCULAR HGB CONC 33 G/DL (32-36); MEAN CORPUSCULAR VOLUME 90 FL (80-99); MEAN PLATELET VOLUME 9.5 FL (7.4-10.4); MONOCYTES # (AUTO) 1.3 X 10^3 (0.0-1.0); MONOCYTES % (AUTO) 11 % (0-12); NEUTROPHILS # (AUTO) 9.3 X 10^3 (1.8-7.8); NEUTROPHILS % (AUTO) 80 % (42-75); PLATELET COUNT 193 10^3/uL (130-400); RED CELL DISTRIBUTION WIDTH 12.7 % (10.0-14.5); WHITE BLOOD COUNT 11.6 10^3/uL (4.3-11.0)
[2019-05-19 04:22] LABS: BUN/CREATININE RATIO 10; CALCIUM 7.6 MG/DL (8.5-10.1); CARBON DIOXIDE 24 MMOL/L (21-32); CHLORIDE 102 MMOL/L (98-107); CREATININE SERUM 0.71 MG/DL (0.60-1.30); GFR ESTIMATED > 60; GLUCOSE 116 MG/DL (70-105); MAGNESIUM 1.8 MG/DL (1.6-2.4); PHOSPHORUS 1.4 MG/DL (2.3-4.7); SODIUM 133 MMOL/L (135-145)
--- NOTE | 2019-05-19 05:30 | NUR ---
PT'S THORA-VAC CANISTER FULL AT THIS TIME. THIS RN EVACUATED 16 ML OF BLOODY DRAINAGE.
[2019-05-19 06:29] LABS: HEMOGLOBIN 9.7 G/DL (13.3-17.7)
[2019-05-19] MEDS: PANTOPRAZOLE 40 MG (PROTONIX) VIAL IVP SCH (08:31)
[2019-05-19] MEDS: ENOXAPARIN 30 MG/0.3 ML (LOVENOX) SYR SC SCH (08:32)
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
--- NOTE | 2019-05-19 09:47 | Progress Note - Ortho ---
Progress Note Subjective Date of Exam 05/19/19 Chief Complaint POD#2 closed IM rodding right femoral shaft and open reduction internal fixation left medial malleolus HPI/Events since last exam Mr. Oliva is 2 days postop and is still having pain although it is improving and controlled with dilauded. No other complaints Review of Systems Unchanged Allergies: Coded Allergies: No Known Drug Allergies (Unverified , 03/14/17) Home Meds Discontinued Scripts Hydrocodone Bit/Acetaminophen (Hydrocodone/Acetaminophen 5/325mg Tablet) 1 Each Tablet, 1 TAB PO Q4H PRN, #20 TAB 0 Refills Prov:BEENA VAZQUEZ DO 03/16/17 Objective Exam Constitutional: [] HEENT: [] Neck: [] Cardiovascular: [] Respiratory: [] Gastrointestinal: [] Genitourinary: [] Skin: [] Back/Spine: [] Extremities: [] Right upper extremity without pain swelling or deformity Left upper extremity mild pain posterior left elbow. Mild pain left wrist which is improved. Pain swelling and bruising over left clavicle and scapula. Neurovascular intact to the upper extremities Left lower extremityankle is splinted. Moving toes with normal sensation, good capillary refill and without pain Right lower extremitymild swelling right knee. Dressings intact. Mild pain with gentle motion right hip and knee. No calf tenderness normal sensation to the foot and toes with good cap refill and good pulses. No weakness noted on dorsiflexion and plantarflexion of foot and ankle Neurologic: [] Psychiatric: [] Hematologic/lymphatic/immunologic: [] Vital Signs Vital Signs Date Time Temp Pulse Resp B/P (MAP) Pulse Ox O2 Delivery O2 Flow Rate FiO2 05/19/19 09:00 113 18 138/84 (102) 93 Nasal Cannula 3.00 05/19/19 08:28 95 Nasal Cannula 4.00 05/19/19 08:05 95 Nasal Cannula 3.00 05/19/19 08:00 104 14 135/70 (91) 94 Nasal Cannula 3.00 05/19/19 07:15 37.1 05/19/19 07:00 90 16 137/75 (95) 96 Nasal Cannula 3.00 05/19/19 07:00 98 05/19/19 06:00 90 16 137/82 (100) 97 Nasal Cannula 3.00 05/19/19 05:00 101 16 143/88 (106) 98 Nasal Cannula 3.00 05/19/19 04:33 Nasal Cannula 3.00 05/19/19 04:00 94 Nasal Cannula 3.00 05/19/19 04:00 102 19 137/79 (98) 99 Nasal Cannula 4.00 05/19/19 03:00 86 18 127/78 (94) 100 Nasal Cannula 4.00 05/19/19 02:00 107 14 135/77 (96) 99 Nasal Cannula 4.00 05/19/19 01:00 101 18 112/79 (90) 98 Nasal Cannula 4.00 05/19/19 01:00 100 05/19/19 00:00 96 Nasal Cannula 4.00 05/19/19 00:00 80 15 126/81 (96) 98 Nasal Cannula 4.00 05/18/19 23:00 92 14 118/80 (93) 99 Nasal Cannula 4.00 05/18/19 22:00 101 19 136/78 (97) 98 Nasal Cannula 4.00 05/18/19 22:00 Nasal Cannula 4.00 05/18/19 21:00 97 20 145/86 (105) 99 Nasal Cannula 4.00 05/18/19 20:00 96 Nasal Cannula 4.00 05/18/19 20:00 37.2 05/18/19 20:00 89 17 135/82 (99) 91 Nasal Cannula 4.00 05/18/19 19:00 91 05/18/19 19:00 86 17 139/79 (99) 91 Nasal Cannula 4.00 05/18/19 18:00 81 18 137/81 (99) 92 Nasal Cannula 2.00 05/18/19 17:00 88 18 137/74 (95) 95 Nasal Cannula 2.00 05/18/19 16:11 94 Nasal Cannula 2.00 05/18/19 16:00 36.8 05/18/19 16:00 73 10 122/86 (98) 96 Nasal Cannula 2.00 05/18/19 15:00 81 16 137/87 (104) 93 Nasal Cannula 2.00 05/18/19 14:04 96 Nasal Cannula 2.00 05/18/19 13:00 92 10 133/89 (104) 92 Nasal Cannula 2.00 05/18/19 12:30 97 05/18/19 12:00 91 141/92 (108) 95 Nasal Cannula 2.00 05/18/19 12:00 36.6 05/18/19 11:56 96 Nasal Cannula 2.00 05/18/19 11:00 101 11 135/81 (99) 94 Nasal Cannula 2.00 05/18/19 10:00 114 11 94 Nasal Cannula 2.00 I & O 05/19/19 07:00 Intake Total 2845 ml Output Total 3350 ml Balance -505 ml Lab Results Laboratory Tests 05/19/19 03:22: White Blood Count 11.6H, Red Blood Count 3.20L, Hemoglobin 9.6L, Hematocrit 29L, Mean Corpuscular Volume 90, Mean Corpuscular Hemoglobin 30, Mean Corpuscular Hemoglobin Concent 33, Red Cell Distribution Width 12.7, Platelet Count 193, Mean Platelet Volume 9.5, Neutrophils (%) (Auto) 80H, Lymphocytes (%) (Auto) 9L, Monocytes (%) (Auto) 11, Eosinophils (%) (Auto) 0, Basophils (%) (Auto) 0, Neutrophils # (Auto) 9.3H, Lymphocytes # (Auto) 1.0, Monocytes # (Auto) 1.3H, Eosinophils # (Auto) 0.0, Basophils # (Auto) 0.0, Sodium Level 133L, Potassium Level 4.0, Chloride Level 102, Carbon Dioxide Level 24, Anion Gap 7, Blood Urea Nitrogen 7, Creatinine 0.71, Estimat Glomerular Filtration Rate > 60, BUN/Creatinine Ratio 10, Glucose Level 116H, Calcium Level 7.6L, Phosphorus Level 1.4L, Magnesium Level 1.8 05/19/19 06:10: Hemoglobin 9.7L, Hematocrit 29L Assessment and Plan Assessment Doing well at 2 days. Problem List Unchanged Plan Continue present treatment. Continue bed rest again only partial weightbearing on the right. No weightbearing on the left. No weightbearing through the left upper extremity. Full weight to the right upper extremity. Plan on splint to cast left ankle tomorrow. Dressing changes tomorrow Final Diagonsis Status post closed IM rodding right femoral shaft Status post open reduction internal fixation left medial malleolus Level of the visit: Level 3 Focused Exam Lactate Level 05/17/19 15:38: Lactic Acid Level 3.13*H Clinical Quality Measures DVT/VTE Risk/Contraindication: Risk Factor Score Per Nursin RFS Level Per Nursing on Admit: 4+=Very High ZANE GRECO MD May 19, 2019 09:47
--- NOTE | 2019-05-19 14:49 | Progress Note - Surgery ---
Subjective Time Seen by a Provider: 12:09 Subjective/Events-last exam Pt seen and examined, sitting up in bed comfortably. His main complaint is he still get SOB and this scares him. He is in severe pain from the multiple fractures and this is only helped by the IV pain meds. Tolerating diet. Review of Systems General: No Night Sweats; Fatigue Pulmonary: Dyspnea, Cough, Pleuritic Chest Pain Cardiovascular: No: Palpitations, Orthopnea Gastrointestinal: No: Nausea, Vomiting, Abdominal Pain Musculoskeletal: shoulder pain (left), arm pain (left), leg pain (right), foot pain (left) Focused Exam Lactate Level 05/17/19 15:38: Lactic Acid Level 3.13*H Objective Exam Vital Signs Date Time Temp Pulse Resp B/P (MAP) Pulse Ox O2 Delivery O2 Flow Rate FiO2 05/19/19 14:00 99 15 150/90 (110) 99 Nasal Cannula 3.00 05/19/19 13:00 105 19 140/109 (119) 100 Nasal Cannula 3.00 05/19/19 12:09 98 Nasal Cannula 3.00 05/19/19 12:08 92 05/19/19 12:00 105 19 126/87 (100) 98 Nasal Cannula 3.00 05/19/19 11:40 36.9 05/19/19 11:00 115 6 139/86 (103) 99 Nasal Cannula 3.00 05/19/19 10:00 112 22 135/80 (98) 96 Nasal Cannula 3.00 05/19/19 09:00 113 18 138/84 (102) 93 Nasal Cannula 3.00 05/19/19 08:28 95 Nasal Cannula 4.00 05/19/19 08:05 95 Nasal Cannula 3.00 05/19/19 08:00 104 14 135/70 (91) 94 Nasal Cannula 3.00 05/19/19 07:15 37.1 05/19/19 07:00 90 16 137/75 (95) 96 Nasal Cannula 3.00 05/19/19 07:00 98 05/19/19 06:00 90 16 137/82 (100) 97 Nasal Cannula 3.00 05/19/19 05:00 101 16 143/88 (106) 98 Nasal Cannula 3.00 05/19/19 04:33 Nasal Cannula 3.00 05/19/19 04:00 94 Nasal Cannula 3.00 05/19/19 04:00 102 19 137/79 (98) 99 Nasal Cannula 4.00 05/19/19 03:00 86 18 127/78 (94) 100 Nasal Cannula 4.00 05/19/19 02:00 107 14 135/77 (96) 99 Nasal Cannula 4.00 05/19/19 01:00 101 18 112/79 (90) 98 Nasal Cannula 4.00 05/19/19 01:00 100 05/19/19 00:00 96 Nasal Cannula 4.00 05/19/19 00:00 80 15 126/81 (96) 98 Nasal Cannula 4.00 05/18/19 23:00 92 14 118/80 (93) 99 Nasal Cannula 4.00 05/18/19 22:00 101 19 136/78 (97) 98 Nasal Cannula 4.00 05/18/19 22:00 Nasal Cannula 4.00 05/18/19 21:00 97 20 145/86 (105) 99 Nasal Cannula 4.00 05/18/19 20:00 96 Nasal Cannula 4.00 05/18/19 20:00 37.2 05/18/19 20:00 89 17 135/82 (99) 91 Nasal Cannula 4.00 05/18/19 19:00 91 05/18/19 19:00 86 17 139/79 (99) 91 Nasal Cannula 4.00 05/18/19 18:00 81 18 137/81 (99) 92 Nasal Cannula 2.00 05/18/19 17:00 88 18 137/74 (95) 95 Nasal Cannula 2.00 05/18/19 16:11 94 Nasal Cannula 2.00 05/18/19 16:00 36.8 05/18/19 16:00 73 10 122/86 (98) 96 Nasal Cannula 2.00 05/18/19 15:00 81 16 137/87 (104) 93 Nasal Cannula 2.00 I & O 05/19/19 07:00 Intake Total 2845 ml Output Total 3350 ml Balance -505 ml Capillary Refill : Less Than 3 SecondsLess Than 3 Seconds General Appearance: No Apparent Distress, WD/WN HEENT: Moist Mucous Membranes; No Scleral Icterus (L), No Scleral Icterus (R); Other (Pt has laceration right mandibular area, just anterior to angle) Respiratory: No Accessory Muscle Use, No Respiratory Distress, Crackles (left base, faint), Decreased Breath Sounds (Left); No Wheezing; Other (palpable left clavicle fracture) Cardiovascular: Regular Rate, Rhythm, No Murmur Gastrointestinal: soft, no organomegaly, no pulsatile mass Extremity: No Calf Tenderness, Other (Left leg in soft cast) Neurologic/Psychiatric: Alert, Oriented x3 Skin: Normal Color, Warm/Dry, Other (laceration left hand, left leg with abrasions on abdomen, right leg, chest) Results Lab Laboratory Tests 05/19/19 03:22: White Blood Count 11.6H, Red Blood Count 3.20L, Hemoglobin 9.6L, Hematocrit 29L, Mean Corpuscular Volume 90, Mean Corpuscular Hemoglobin 30, Mean Corpuscular Hemoglobin Concent 33, Red Cell Distribution Width 12.7, Platelet Count 193, Mean Platelet Volume 9.5, Neutrophils (%) (Auto) 80H, Lymphocytes (%) (Auto) 9L, Monocytes (%) (Auto) 11, Eosinophils (%) (Auto) 0, Basophils (%) (Auto) 0, Neutrophils # (Auto) 9.3H, Lymphocytes # (Auto) 1.0, Monocytes # (Auto) 1.3H, Eosinophils # (Auto) 0.0, Basophils # (Auto) 0.0, Sodium Level 133L, Potassium Level 4.0, Chloride Level 102, Carbon Dioxide Level 24, Anion Gap 7, Blood Urea Nitrogen 7, Creatinine 0.71, Estimat Glomerular Filtration Rate > 60, BUN/Creatinine Ratio 10, Glucose Level 116H, Calcium Level 7.6L, Phosphorus Level 1.4L, Magnesium Level 1.8 05/19/19 06:10: Hemoglobin 9.7L, Hematocrit 29L Assessment/Plan Assessment/Plan Assessment/Plan Left Pneumothorax and Hemothorax - worse today Pneumothorax - Right Left rib Fx 2-3 Left Clavicle fx Left Scapular fx Right Femur Fx - comminuted and displaced Left ankle fx Nasal bone fx Alcohol Intoxication Pulmonary Contusion Thoravent placed for pneumothorax; CXR now shows it has resolved. Pt continues to have some blood come into thoravent, but it is minimal. Discussed this with the pt the need to get off IV pain meds and therefore will start oral Percocet. Pt will also need to have Left arm in sling because of clavicle fx. I spent over 40 minutes of critical care time speaking to pt and family, discussing his care with the other consulting physicians and going over labs and radiology. Clinical Quality Measures DVT/VTE Risk/Contraindication: Risk Factor Score Per Nursin RFS Level Per Nursing on Admit: 4+=Very High GINA DIAZ DO May 19, 2019 14:48
[2019-05-19] MEDS: oxyCODONE/APAP 10/325MG (PERCOCET 10) TABLET PO PRN ×2 (14:59→20:02)
--- NOTE | 2019-05-19 19:30 | NUR ---
PT'S THORA-VENT CANISTER FULL AT THIS TIME. THIS RN EVACUATED 16 ML OF BLOODY DRAINAGE.
[2019-05-19] MEDS: LORazepam 1 MG (ATIVAN) TAB PO PRN (21:37)
[2019-05-20] VITALS (25 sets, daily range): BP systolic 110–140; BP diastolic 38–103
[2019-05-20] MEDS: oxyCODONE/APAP 10/325MG (PERCOCET 10) TABLET PO PRN ×6 (00:12→22:45)
[2019-05-20] MEDS: HYDROmorphone 2 MG/ML VIAL (DILAUDID) IV PRN ×7 (03:18→21:12)
[2019-05-20 03:50] LABS: BASOPHILS % (AUTO) 0 % (0-10); EOSINOPHILS # (AUTO) 0.1 10^3/uL (0.0-0.3); EOSINOPHILS % (AUTO) 1 % (0-10); HEMATOCRIT 28 % (40-54); HEMOGLOBIN 9.5 G/DL (13.3-17.7); LYMPHOCYTES # (AUTO) 1.1 X 10^3 (1.0-4.0); LYMPHOCYTES % (AUTO) 12 % (12-44); MEAN CORPUSCULAR HEMOGLOBIN 30 PG (25-34); MEAN CORPUSCULAR HGB CONC 34 G/DL (32-36); MEAN CORPUSCULAR VOLUME 90 FL (80-99); MEAN PLATELET VOLUME 9.4 FL (7.4-10.4); MONOCYTES # (AUTO) 0.9 X 10^3 (0.0-1.0); MONOCYTES % (AUTO) 10 % (0-12); NEUTROPHILS # (AUTO) 7.2 X 10^3 (1.8-7.8); NEUTROPHILS % (AUTO) 77 % (42-75); PLATELET COUNT 206 10^3/uL (130-400); RED CELL DISTRIBUTION WIDTH 12.2 % (10.0-14.5); WHITE BLOOD COUNT 9.4 10^3/uL (4.3-11.0)
[2019-05-20 04:10] LABS: BUN/CREATININE RATIO 12; CALCIUM 8.4 MG/DL (8.5-10.1); CARBON DIOXIDE 19 MMOL/L (21-32); CHLORIDE 106 MMOL/L (98-107); CREATININE SERUM 0.68 MG/DL (0.60-1.30); GFR ESTIMATED > 60; GLUCOSE 91 MG/DL (70-105); PHOSPHORUS 1.5 MG/DL (2.3-4.7); POTASSIUM 4.1 MMOL/L (3.6-5.0); SODIUM 137 MMOL/L (135-145)
--- NOTE | 2019-05-20 06:30 | NUR ---
TRACTOR TRAILER MOVING VAN DRIVER NOTIFIED THIS RN THAT PT'S MORNING CHEST X-RAY APPEARS TO BE DIFFERENT THAN YESTERDAY. PT O2 SATURATION IS CURRENTLY 96% ON ROOM AIR AND NO RESPIRATORY DISTRESS NOTED. THIS RN NOTIFIED E-ICU. DR. VALDEZ RECOMMENDED NOTIFYING THE SURGEON AT THIS TIME. DR. DIAZ NOTIFIED OF CHEST-X-RAY CHANGES. NO NEW ORDERS AT THIS TIME.
--- NOTE | 2019-05-20 06:50 | NUR ---
PT'S THORA-VENT CANISTER FULL AT THIS TIME. THIS RN EVACUATED 20 ML OF BLOODY DRAINAGE.
--- NOTE | 2019-05-20 07:12 | Diagnostic Imaging Report ---
INDICATION: Dyspnea Upright portable AP view of the chest is obtained. Comparison is made to study of one day earlier. Extensive posttraumatic findings are noted in the left hemithorax with increasing atelectasis and probable hemorrhage in the left lung. No definite pneumothorax is identified. Right lung remains clear. There is elevation of the left hemidiaphragm. This is likely related to collapse of the left lung although left diaphragmatic injury is not excluded. IMPRESSION: Near complete collapse of the left lung is likely due to atelectasis with probable associated hemorrhage. There is increased elevation of the left hemidiaphragm with comminuted left clavicle and numerous left rib fractures. Dictated by: Dictated on workstation # [id number]
--- NOTE | 2019-05-20 09:27 | Occ Therapy Progress Note ---
Therapy Progress Note OT/PT attempted co-treat this AM due to increased medical complexity. Nursing stated pt is currently on bed rest until his ankle is casted later today. OT will attempt again later once pt is no longer on bed rest. 1, visit [id number] EMILIANO BOGGS OT May 20, 2019 09:27
[2019-05-20] MEDS: PANTOPRAZOLE 40 MG (PROTONIX) VIAL IVP SCH (09:59)
[2019-05-20] MEDS: NS IV 1000 ML 1,000 ML IV SCH ×2 (10:00→18:09)
--- NOTE | 2019-05-20 10:27 | NUR ---
PTS THORA-VENT CONTAINER EMPTIED WITH 10ML OF CLEAR BLOODY FLUID EXPELLED. PT STATES BREATHING FEELS FINE AND HE IS FEELING MUCH BETTER. MOTHER NOW AT BEDSIDE. VITALS STABLE. PT WANTING TO GET UP TO CHAIR. ADVISED PT ORTHO WILL NEED TO CLEAR BEDREST BEFORE HE CAN. FINDING GLASS IN WOUNDS AND IN BED.
--- NOTE | 2019-05-20 11:10 | NUR ---
Pt resting with eyes closed; I spoke with the nurse who said the pt has demonstrated difficulty sleeping and has recently been able to rest. I visited with the pt's sister and niece in the ICU waiting room. The pt is Jewish. His sister described her beliefs as spiritual. Offered empathetic listening and compassionate presence as she shared her concerns for her brother.
--- NOTE | 2019-05-20 12:56 | Progress Note - Ortho ---
Progress Note Subjective Date of Exam 05/20/19 Chief Complaint POD#3 closed IM rodding right femoral shaft fracture and open reduction internal fixation medial malleolar fracture left ankle HPI/Events since last exam Mr. Oliva is 3 days postop. He is doing fairly well. Still has quite a bit of pain over the left clavicle. His mother was in the room with him and I discussed his surgical treatment and our plans for her to expect from here on out. Review of Systems Reviewed and no additions or changes Allergies: Coded Allergies: No Known Drug Allergies (Unverified , 03/14/17) Home Meds Discontinued Scripts Hydrocodone Bit/Acetaminophen (Hydrocodone/Acetaminophen 5/325mg Tablet) 1 Each Tablet, 1 TAB PO Q4H PRN, #20 TAB 0 Refills Prov:BEENA VAZQUEZ DO 03/16/17 Objective Exam Constitutional: [] HEENT: [] Neck: [] Cardiovascular: [] Respiratory: [] Gastrointestinal: [] Genitourinary: [] Skin: [] Back/Spine: [] Extremities: [The right upper extremity is without pain or deformity. Neurovascularly intact. Left upper extremityhis dressing was removed. His wound is healing well without redness or drainage. Good range of motion elbow without pain. Mild pain left wrist which is improving. He is neurovascularly intact to left upper extremity Left lower extremityhis splint was removed. His incision looks good without r edness or drainage. He has normal sensation to the foot and toes with good capillary refill and good pulses. His wound was redressed with antibiotic ointment, Adaptic and 4 x 4's and then a short-leg cast was applied. Right lower extremity his dressings were changed. His wounds look good without redness or drainage. He still has little bit of oozing or bleeding from the proximal wound which is typical. Mild effusion of the knee. No calf tenderness. Normal sensation with good cap refill and good pulses. Good strength on dorsiflexion plantar flex his foot and ankle] Neurologic: [] Psychiatric: [] Hematologic/lymphatic/immunologic: [] Vital Signs Vital Signs Date Time Temp Pulse Resp B/P (MAP) Pulse Ox O2 Delivery O2 Flow Rate FiO2 05/20/19 11:00 107 17 137/77 (97) 98 Room Air 05/20/19 10:00 98 28 136/86 (103) 100 Room Air 05/20/19 09:00 99 27 117/88 (98) 98 Room Air 05/20/19 08:00 105 19 125/88 (100) 95 Room Air 05/20/19 07:50 98 Room Air 05/20/19 07:00 111 05/20/19 07:00 112 19 125/88 (100) 95 Room Air 05/20/19 06:00 101 22 135/88 (104) 95 Room Air 05/20/19 05:00 98 24 136/85 (102) 94 Room Air 05/20/19 04:00 96 Room Air 05/20/19 04:00 93 24 129/85 (100) 94 Room Air 05/20/19 03:55 Room Air 05/20/19 03:00 77 18 135/73 (93) 97 Nasal Cannula 1.00 05/20/19 02:00 82 17 131/84 (100) 97 Nasal Cannula 1.00 05/20/19 01:00 98 19 127/78 (94) 97 Nasal Cannula 1.00 05/20/19 00:38 79 05/20/19 00:00 82 36 128/72 (90) 97 Nasal Cannula 1.00 05/20/19 00:00 96 Nasal Cannula 1.00 05/19/19 23:00 84 24 130/77 (94) 97 Nasal Cannula 1.00 05/19/19 22:55 Nasal Cannula 1.00 05/19/19 22:00 96 17 143/64 (90) 98 Nasal Cannula 2.00 05/19/19 21:12 Nasal Cannula 2.00 05/19/19 21:00 86 137/70 (92) 100 Nasal Cannula 3.00 05/19/19 20:58 37.5 05/19/19 20:00 93 147/86 (106) 100 Nasal Cannula 3.00 05/19/19 20:00 97 Nasal Cannula 2.00 05/19/19 19:00 87 139/79 (99) 99 Nasal Cannula 3.00 05/19/19 18:42 89 05/19/19 18:00 73 23 139/88 (105) 99 Nasal Cannula 3.00 05/19/19 17:00 79 27 141/77 (98) 99 Nasal Cannula 3.00 05/19/19 16:35 37.3 Nasal Cannula 3.00 05/19/19 16:00 85 15 131/76 (94) 99 Nasal Cannula 3.00 05/19/19 16:00 98 Nasal Cannula 3.00 05/19/19 15:00 89 19 135/85 (102) 99 Nasal Cannula 3.00 05/19/19 14:00 99 15 150/90 (110) 99 Nasal Cannula 3.00 05/19/19 13:00 105 19 140/109 (119) 100 Nasal Cannula 3.00 I & O 05/20/19 07:00 Intake Total 4030 ml Output Total 7450 ml Balance -3420 ml Lab Results Laboratory Tests 05/20/19 03:31: White Blood Count 9.4, Red Blood Count 3.12L, Hemoglobin 9.5L, Hematocrit 28L, Mean Corpuscular Volume 90, Mean Corpuscular Hemoglobin 30, Mean Corpuscular Hemoglobin Concent 34, Red Cell Distribution Width 12.2, Platelet Count 206, Mean Platelet Volume 9.4, Neutrophils (%) (Auto) 77H, Lymphocytes (%) (Auto) 12, Monocytes (%) (Auto) 10, Eosinophils (%) (Auto) 1, Basophils (%) (Auto) 0, Neutrophils # (Auto) 7.2, Lymphocytes # (Auto) 1.1, Monocytes # (Auto) 0.9, Eosinophils # (Auto) 0.1, Basophils # (Auto) 0.0, Sodium Level 137, Potassium Level 4.1, Chloride Level 106, Carbon Dioxide Level 19L, Anion Gap 12, Blood Urea Nitrogen 8, Creatinine 0.68, Estimat Glomerular Filtration Rate > 60, BUN/Creatinine Ratio 12, Glucose Level 91, Calcium Level 8.4L, Phosphorus Level 1.5L, Magnesium Level 2.0 Microbiology 05/17/19 MRSA Screen - Final, Complete MRSA not isolated Assessment and Plan Assessment Doing well third day postop Problem List Unchanged Plan Continue with the same. Physical therapy was wondering what they could do and I talked to his nurse and I think that he could use the right leg for transfer from bed to chair and of course he can use his right upper extremity but no weight left lower extremity and no weightbearing through the left upper extremity. I do not want him ambulating on that right leg. Continue dressing changes daily. Final Diagonsis Status post closed IM rodding right femoral shaft fracture Status post open reduction internal fixation medial malleolus left ankle Level of the visit: Level 3 Focused Exam Lactate Level 05/17/19 15:38: Lactic Acid Level 3.13*H Clinical Quality Measures DVT/VTE Risk/Contraindication: Risk Factor Score Per Nursin RFS Level Per Nursing on Admit: 4+=Very High ZANE GRECO MD May 20, 2019 12:56
--- NOTE | 2019-05-20 13:10 | NUR ---
DR GRECO AT BEDSIDE AND APPLIED HARD CAST TO LLE. DRESSING TO LEFT ARM/ELBOW, RIGHT HIP, AND RIGHT LAT KNEE CHANGED. PT ALSO CLEANED UP WITH SOAP AND WATER. BRUSHED TEETH. PULSE OX CHANGED TO RIGHT HAND AND SATS READING 92%. 10ML OF DARK RED BLOODY FLUID REMOVED FROM THORA-VENT. PT DOES C/O MILD SOA AFTER EXERTION AND CLEANING SHEETS UNDERNEATH OF HIM.
--- NOTE | 2019-05-20 13:30 | Physical Therapy Progress Note ---
Therapy Progress Note Patient is on bed rest per RNMai. She request PT resume in a.m. due to patient SAO2 decreases with changing and cleansing patient in bed. PT will attempt in a.m. MIRIAN SPAULDING PT May 20, 2019 13:30
--- NOTE | 2019-05-20 13:50 | Occ Therapy Progress Note ---
Therapy Progress Note Per chart review will see pt in a.m. due to patient SAO2 decreases with changing and cleansing patient in bed. OT will attempt in a.m. JESU WOLFF May 20, 2019 13:50
--- NOTE | 2019-05-20 14:45 | NUR ---
provided prayer and Communion. Pt states he has been anointed.
--- NOTE | 2019-05-20 14:45 | NUR ---
DR DIAZ IN ROOM. THIS RN REMOVED 15ML FROM THORA-VENT. DR DIAZ REMOVED 67 ML. NO CXR NEEDED PER PROVIDER. OK TO START MAT PROTOCOL. HOLD LOVENOX. OK FOR NO ABX COVERAGE CURRENTLY.
[2019-05-20] MEDS: ENOXAPARIN 30 MG/0.3 ML (LOVENOX) SYR SC SCH (14:48)
--- NOTE | 2019-05-20 15:50 | Progress Note - Surgery ---
Subjective Time Seen by a Provider: 14:30 Subjective/Events-last exam Pt seen and examined, pt is on room air and Pulse Ox is 95%. CXR shows white out of left lung. Pt denies trouble breathing; admits to occasional pain with deep breaths. Tolerating diet and pain mostly controlled. Review of Systems General: No Night Sweats; Fatigue Pulmonary: Dyspnea, Pleuritic Chest Pain Cardiovascular: No: Chest Pain, Palpitations Gastrointestinal: No: Nausea, Vomiting, Abdominal Pain Musculoskeletal: shoulder pain, arm pain, back pain, leg pain, foot pain Objective Exam Vital Signs Date Time Temp Pulse Resp B/P (MAP) Pulse Ox O2 Delivery O2 Flow Rate FiO2 05/20/19 15:00 90 36 131/75 (93) 93 Room Air 05/20/19 14:00 94 20 140/82 (101) 94 Room Air 05/20/19 13:00 101 18 125/90 (102) 92 Room Air 05/20/19 13:00 94 05/20/19 12:00 93 Room Air 05/20/19 12:00 105 35 110/38 (62) 98 Room Air 05/20/19 11:00 107 17 137/77 (97) 98 Room Air 05/20/19 10:00 98 28 136/86 (103) 100 Room Air 05/20/19 09:00 99 27 117/88 (98) 98 Room Air 05/20/19 08:00 105 19 125/88 (100) 95 Room Air 05/20/19 07:50 98 Room Air 05/20/19 07:00 111 05/20/19 07:00 112 19 125/88 (100) 95 Room Air 05/20/19 06:00 101 22 135/88 (104) 95 Room Air 05/20/19 05:00 98 24 136/85 (102) 94 Room Air 05/20/19 04:00 96 Room Air 05/20/19 04:00 93 24 129/85 (100) 94 Room Air 05/20/19 03:55 Room Air 05/20/19 03:00 77 18 135/73 (93) 97 Nasal Cannula 1.00 05/20/19 02:00 82 17 131/84 (100) 97 Nasal Cannula 1.00 05/20/19 01:00 98 19 127/78 (94) 97 Nasal Cannula 1.00 05/20/19 00:38 79 05/20/19 00:00 82 36 128/72 (90) 97 Nasal Cannula 1.00 05/20/19 00:00 96 Nasal Cannula 1.00 05/19/19 23:00 84 24 130/77 (94) 97 Nasal Cannula 1.00 05/19/19 22:55 Nasal Cannula 1.00 05/19/19 22:00 96 17 143/64 (90) 98 Nasal Cannula 2.00 05/19/19 21:12 Nasal Cannula 2.00 05/19/19 21:00 86 137/70 (92) 100 Nasal Cannula 3.00 05/19/19 20:58 37.5 05/19/19 20:00 93 147/86 (106) 100 Nasal Cannula 3.00 05/19/19 20:00 97 Nasal Cannula 2.00 05/19/19 19:00 87 139/79 (99) 99 Nasal Cannula 3.00 05/19/19 18:42 89 05/19/19 18:00 73 23 139/88 (105) 99 Nasal Cannula 3.00 05/19/19 17:00 79 27 141/77 (98) 99 Nasal Cannula 3.00 05/19/19 16:35 37.3 Nasal Cannula 3.00 05/19/19 16:00 85 15 131/76 (94) 99 Nasal Cannula 3.00 05/19/19 16:00 98 Nasal Cannula 3.00 I & O 05/20/19 07:00 Intake Total 4030 ml Output Total 7450 ml Balance -3420 ml Capillary Refill : Less Than 3 SecondsLess Than 3 Seconds General Appearance: No Apparent Distress, WD/WN HEENT: Moist Mucous Membranes; No Scleral Icterus (L), No Scleral Icterus (R); Other (Pt has laceration right mandibular area, just anterior to angle) Respiratory: No Accessory Muscle Use, No Respiratory Distress, Crackles (left base, faint), Decreased Breath Sounds (Left); No Wheezing; Other (thoravent in place, has some blood in it) Cardiovascular: Regular Rate, Rhythm, No Murmur Gastrointestinal: soft, no organomegaly, no pulsatile mass Extremity: No Calf Tenderness, Other (Left leg in soft cast) Neurologic/Psychiatric: Alert, Oriented x3 Skin: Normal Color, Warm/Dry, Other (laceration left hand, left leg with abrasions on abdomen, right leg, chest) Results Lab Laboratory Tests 05/20/19 03:31: White Blood Count 9.4, Red Blood Count 3.12L, Hemoglobin 9.5L, Hematocrit 28L, Mean Corpuscular Volume 90, Mean Corpuscular Hemoglobin 30, Mean Corpuscular Hemoglobin Concent 34, Red Cell Distribution Width 12.2, Platelet Count 206, Mean Platelet Volume 9.4, Neutrophils (%) (Auto) 77H, Lymphocytes (%) (Auto) 12, Monocytes (%) (Auto) 10, Eosinophils (%) (Auto) 1, Basophils (%) (Auto) 0, Neutrophils # (Auto) 7.2, Lymphocytes # (Auto) 1.1, Monocytes # (Auto) 0.9, Eosinophils # (Auto) 0.1, Basophils # (Auto) 0.0, Sodium Level 137, Potassium Level 4.1, Chloride Level 106, Carbon Dioxide Level 19L, Anion Gap 12, Blood Urea Nitrogen 8, Creatinine 0.68, Estimat Glomerular Filtration Rate > 60, BUN/Creatinine Ratio 12, Glucose Level 91, Calcium Level 8.4L, Phosphorus Level 1.5L, Magnesium Level 2.0 Microbiology 05/17/19 MRSA Screen - Final, Complete MRSA not isolated Assessment/Plan Assessment/Plan Assessment/Plan Left Pneumothorax and Hemothorax - worse today. I mina off appx 77ml of blood through thoravent in lung and nurse has pulled appx 30ml from the device itself (had already gone through one-way valve). Pneumothorax - Right (resolved) Left rib Fx 2-3 Left Clavicle fx Left Scapular fx Right Femur Fx - comminuted and displaced Left ankle fx Nasal bone fx Alcohol Intoxication Pulmonary Contusion CXR now shows complete whiteout of left lung; mina off blood and will recheck CXR in am. Pt continues to have some blood come into thoravent, but it is minimal. Pt doing pretty well with oral Percocet. Pt will also need to have Left arm in sling because of clavicle fx. Clinical Quality Measures DVT/VTE Risk/Contraindication: Risk Factor Score Per Nursin RFS Level Per Nursing on Admit: 4+=Very High GINA DIAZ DO May 20, 2019 15:50
[2019-05-20] MEDS ORDERED: RT-ALBUTEROL/IPRATROPIUM 3 ML (DUONEB) VIAL INH PRN (16:00)
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
[2019-05-20] MEDS: RT-ALBUTEROL/IPRATROPIUM 3 ML (DUONEB) VIAL INH SCH ×2 (19:01→21:18)
[2019-05-20] MEDS: LORazepam 1 MG (ATIVAN) TAB PO PRN (21:12)
[2019-05-21] VITALS (24 sets, daily range): BP systolic 117–155; BP diastolic 53–123
[2019-05-21] MEDS: NS IV 1000 ML 1,000 ML IV SCH ×3 (01:13→18:50)
[2019-05-21] MEDS: HYDROmorphone 2 MG/ML VIAL (DILAUDID) IV PRN ×6 (01:13→20:12)
[2019-05-21] MEDS: RT-ALBUTEROL/IPRATROPIUM 3 ML (DUONEB) VIAL INH SCH ×6 (01:55→23:52)
[2019-05-21] MEDS: oxyCODONE/APAP 10/325MG (PERCOCET 10) TABLET PO PRN ×5 (03:54→21:28)
[2019-05-21 04:17] LABS: BASOPHILS % (AUTO) 1 % (0-10); EOSINOPHILS # (AUTO) 0.2 10^3/uL (0.0-0.3); EOSINOPHILS % (AUTO) 2 % (0-10); HEMATOCRIT 26 % (40-54); HEMOGLOBIN 8.8 G/DL (13.3-17.7); LYMPHOCYTES # (AUTO) 1.2 X 10^3 (1.0-4.0); LYMPHOCYTES % (AUTO) 16 % (12-44); MEAN CORPUSCULAR HEMOGLOBIN 30 PG (25-34); MEAN CORPUSCULAR HGB CONC 33 G/DL (32-36); MEAN CORPUSCULAR VOLUME 90 FL (80-99); MEAN PLATELET VOLUME 9.1 FL (7.4-10.4); MONOCYTES % (AUTO) 14 % (0-12); NEUTROPHILS # (AUTO) 5.2 X 10^3 (1.8-7.8); NEUTROPHILS % (AUTO) 68 % (42-75); PLATELET COUNT 236 10^3/uL (130-400); RED CELL DISTRIBUTION WIDTH 12.5 % (10.0-14.5); WHITE BLOOD COUNT 7.6 10^3/uL (4.3-11.0)
[2019-05-21 04:34] LABS: BUN/CREATININE RATIO 11; CALCIUM 7.9 MG/DL (8.5-10.1); CARBON DIOXIDE 19 MMOL/L (21-32); CHLORIDE 109 MMOL/L (98-107); CREATININE SERUM 0.65 MG/DL (0.60-1.30); GFR ESTIMATED > 60; GLUCOSE 108 MG/DL (70-105); PHOSPHORUS 2.3 MG/DL (2.3-4.7); POTASSIUM 3.8 MMOL/L (3.6-5.0); SODIUM 139 MMOL/L (135-145)
--- NOTE | 2019-05-21 08:26 | Progress Note - Surgery ---
BHARGAVI SOLIS,MED STUDENT 05/21/19 0826: Subjective Date Seen by a Provider: May 21, 2019 Time Seen by a Provider: 07:01 Subjective/Events-last exam Patient seen and examined this morning in bed. He states he is feeling very well this morning. He is still having pain on the left side of his ribcage and in his left clavicle when he takes deep breaths, but does not feel short of breath. His 02 saturiation is 94% on room air this morning. Review of Systems General: No Chills, No Fatigue HEENT: No Head Aches, No Visual Changes Pulmonary: No Dyspnea, No Cough; Other (left sided pain with deep breaths) Cardiovascular: No: Palpitations, Edema Gastrointestinal: No: Nausea, Vomiting, Abdominal Pain Neurological: No: Weakness, Numbness Objective Exam Vital Signs Date Time Temp Pulse Resp B/P (MAP) Pulse Ox O2 Delivery O2 Flow Rate FiO2 05/21/19 08:00 36.6 05/21/19 07:24 95 Room Air 05/21/19 07:00 99 05/21/19 06:00 27 130/81 (97) 91 Room Air 05/21/19 05:00 11 117/79 (92) 87 Room Air 05/21/19 04:07 94 Room Air 05/21/19 04:06 37.4 05/21/19 04:00 105 14 133/81 (98) 94 Room Air 05/21/19 03:00 86 16 129/87 (101) 91 Room Air 05/21/19 02:00 79 15 131/81 (98) 93 Room Air 05/21/19 01:00 90 10 134/79 (97) 95 Room Air 05/21/19 00:44 90 05/21/19 00:00 93 32 126/79 (95) 91 Room Air 05/21/19 00:00 94 Room Air 05/20/19 23:59 37.1 05/20/19 23:00 89 26 131/83 (99) 92 Room Air 05/20/19 22:00 87 15 127/74 (91) 92 Room Air 05/20/19 21:19 98 Room Air 05/20/19 21:00 25 137/85 (102) 97 Room Air 05/20/19 20:00 94 Room Air 05/20/19 20:00 93 24 131/87 (102) 95 Room Air 05/20/19 20:00 37.0 05/20/19 19:01 95 Room Air 05/20/19 19:00 95 25 137/55 (82) 92 Room Air 05/20/19 18:36 103 05/20/19 18:00 112 21 126/86 (99) 94 Room Air 05/20/19 17:00 107 29 131/89 (103) 92 Room Air 05/20/19 16:18 95 Room Air 05/20/19 16:00 92 16 133/103 (113) 91 Room Air 05/20/19 16:00 37.0 05/20/19 15:36 37.5 93 94 21 05/20/19 15:00 90 36 131/75 (93) 93 Room Air 05/20/19 14:00 94 20 140/82 (101) 94 Room Air 05/20/19 13:00 101 18 125/90 (102) 92 Room Air 05/20/19 13:00 94 05/20/19 12:00 93 Room Air 05/20/19 12:00 105 35 110/38 (62) 98 Room Air 05/20/19 11:00 107 17 137/77 (97) 98 Room Air 05/20/19 10:00 98 28 136/86 (103) 100 Room Air 05/20/19 09:00 99 27 117/88 (98) 98 Room Air l I & O 05/21/19 07:00 Intake Total 6670 ml Output Total 6689 ml Balance -19 ml Capillary Refill : Less Than 3 SecondsLess Than 3 Seconds General Appearance: No Apparent Distress, WD/WN HEENT: PERRL/EOMI, Moist Mucous Membranes; No Pharyngeal Erythema, No Scleral Icterus (L), No Scleral Icterus (R) Neck: Non Tender, Supple Respiratory: No Accessory Muscle Use, No Respiratory Distress, Decreased Breath Sounds (Left); No Wheezing; Other (thoravent in place, has some blood in it) Cardiovascular: Regular Rate, Rhythm, No Edema, No Murmur Peripheral Pulses: 2+ Radial Pulses (R), 2+ Radial Pulses (L) Gastrointestinal: normal bowel sounds, soft, no organomegaly, no pulsatile mass Extremity: Other (Left leg in soft cast, left clavicle tender to palpation) Neurologic/Psychiatric: Alert, Oriented x3 Skin: Normal Color, Warm/Dry, Other (bruising to left clavicular area) Lymphatic: No Adenopathy (cervical and supraclavicular) Results Lab Laboratory Tests 05/21/19 03:47: White Blood Count 7.6, Red Blood Count 2.93L, Hemoglobin 8.8L, Hematocrit 26L, Mean Corpuscular Volume 90, Mean Corpuscular Hemoglobin 30, Mean Corpuscular Hemoglobin Concent 33, Red Cell Distribution Width 12.5, Platelet Count 236, Mean Platelet Volume 9.1, Neutrophils (%) (Auto) 68, Lymphocytes (%) (Auto) 16, Monocytes (%) (Auto) 14H, Eosinophils (%) (Auto) 2, Basophils (%) (Auto) 1, Neutrophils # (Auto) 5.2, Lymphocytes # (Auto) 1.2, Monocytes # (Auto) 1.0, Eosinophils # (Auto) 0.2, Basophils # (Auto) 0.0, Sodium Level 139, Potassium Level 3.8, Chloride Level 109H, Carbon Dioxide Level 19L, Anion Gap 11, Blood Urea Nitrogen 7, Creatinine 0.65, Estimat Glomerular Filtration Rate > 60, BUN/Creatinine Ratio 11, Glucose Level 108H, Calcium Level 7.9L, Phosphorus Level 2.3, Magnesium Level 2.0 Microbiology 05/17/19 MRSA Screen - Final, Complete MRSA not isolated Assessment/Plan Assessment/Plan Assessment/Plan Left Pneumothorax and Hemothorax - worse today. I fausto off appx 77ml of blood through thoravent in lung and nurse has pulled appx 30ml from the device itself (had already gone through one-way valve). Pneumothorax - Right (resolved) Left rib Fx 2-3 Left Clavicle fx Left Scapular fx Right Femur Fx - comminuted and displaced Left ankle fx Nasal bone fx Alcohol Intoxication Pulmonary Contusion CXR now shows complete whiteout of left lung; fausto off blood and will recheck CXR in am. Pt continues to have some blood come into thoravent, but it is minimal. Pt doing pretty well with oral Percocet. Pt will also need to have Left arm in sling because of clavicle fx. Clinical Quality Measures DVT/VTE Risk/Contraindication: Risk Factor Score Per Nursin RFS Level Per Nursing on Admit: 4+=Very High GINA IRWIN DO 05/21/19 1259: Subjective Time Seen by a Provider: 12:44 Subjective/Events-last exam Pt seen and examined. Denies SOB, mainly complains of pain with deep breaths and pain from fractures. Tolerating diet. Objective Exam General Appearance: No Apparent Distress, WD/WN Respiratory: Normal Breath Sounds (right), No Accessory Muscle Use, No Respiratory Distress, Decreased Breath Sounds (Left); No Wheezing Cardiovascular: Regular Rate, Rhythm, No Edema, No Murmur Gastrointestinal: non tender, soft, no organomegaly Assessment/Plan Assessment/Plan Assessment/Plan CXR still shows white-out of left lung. Fausto off appx 250ml of blood and decided to hook thoravent up to [facility]. Will do CXR now to see if drawing off blood changed CXR. I will also call Dr. Durbin to find out timing of mandibular fixation and what diet he can be on. Will also have SW come talk to pt regarding sending him to rehab (hopefully here in ARU). Supervisory-Addendum Brief Verification & Attestation Participated in pt care: history, MDM, physical Personally performed: exam, history, MDM Care discussed with: Medical Student Procedures: n/a Verification and Attestation of Medical Student E/M Service A medical student performed and documented this service in my presence. I reviewed and verified all information documented by the medical student and made modifications to such information, when appropriate. I personally performed the physical exam and medical decision making. Gina Irwin, May 21, 2019,13:00 BHARGAVI SOLIS,MED STUDENT May 21, 2019 08:26 GINA IRWIN DO May 21, 2019 12:59
[2019-05-21] MEDS: PANTOPRAZOLE 40 MG (PROTONIX) VIAL IVP SCH (08:53)
--- NOTE | 2019-05-21 08:53 | Diagnostic Imaging Report ---
INDICATION: Dyspnea. COMPARISON: 05/20/2019. FINDINGS: The right lung is clear. There is almost complete opacification of the left hemithorax. There appears to be a small bore thoracostomy tube in place. There is some subcutaneous gas about the left neck. IMPRESSION: Unchanged opacification of the left chest. Dictated by: Dictated on workstation # [id number]
--- NOTE | 2019-05-21 10:12 | Physical Therapy Daily Note ---
PT Daily Note-Current Subjective Patient is extremely motivated for OOB activity. Agrees to PT. Pain Numeric Pain Scale: 8 Location: Right Location Body Site: Thigh Pain Description: Acute Comment: with meds issued Mental Status Patient Orientation: Normal For Age Attachments: Lara Catheter, IV Transfers SCALE: Activities may be completed with or without assistive devices. 9-Rfoljttcto-lvbmfws completes the activity by him/herself with no assistance from a helper. 5-Set-up or Clean-up Assistance-helper sets up or cleans up; patient completes activity. [place] assists only prior to or following the activity. 4-Supervision or Touching Assistance-helper provides verbal cues and/or touching/steadying and/or contact guard assistance as patient completes activity. Assistance may be provided throughout the activity or intermittently. 3-Partial/Moderate Assistance-helper does LESS THAN HALF the effort. [place] lifts, holds or supports trunk or limbs, but provides less than half the effort. 2-Substantial/Maximal Assistance-helper does MORE THAN HALF the effort. [place] lifts or holds trunk or limbs and provides more than half the effort. 9-Zmkbyfkom-fghyar does ALL the effort. Patient does none of the effort to complete the activity. Or, the assistance of 2 or more helpers is required for the patient to complete the activity. If activity was not attempted, code reason: 7-Patient Refused. 9-Not Applicable-not attempted and the patient did not perform the activity before the current illness, exacerbation or injury. 10-Not Attempted due to Environmental Limitations-(lack of equipment, weather restraints, etc.). 88-Not Attempted due to Medical Conditions or Safety Concerns. Roll Left & Right (QC): 6 Sit to Lying (QC): 6 Lying to Sitting/Side of Bed(Q: 6 Chair/Owd-vl-Ltepm Xfer(QC): 3 patient declined slide board transfer and performed a scoot pivot transfer to right bed to w/c with CGA for safety Weight Bearing Right Lower Extremity: Right Partial Weight Bearing Left Lower Extremity: Left Non Weight Bearing Gait Training Does the Patient Walk?: No and Walking Goal NOT indicated Exercises Supine Ex: Ankle pumps, Quad Set, Short Arc Quads Supine Reps: 12 Seated Therapy Exercises: LE Protocol (IR/ER), Ankle pumps (right only), Long arc quads Seated Reps: 15 (2 sets) Assessment Patient is currently PWB right LE per Dr. Driver. Patient able to perform scoot pivot transfer bed to w/c. Patient tolerated treatment very well and remained up in w/c. RN in after session. PT Short Term Goals Short Term Goals Time Frame: May 25, 2019 Roll Left & Right: 3 Sit to lyin Lying to sitting on side of be: 3 Does pt use a wc or scooter: No PT Utilization Supervisor Goals [facility] Goals PT Utilization Supervisor Goals Time Frame: Jun 01, 2019 Roll Left & Right (QC): 4 Sit to Lying (QC): 4 Lying-Sitting on Side/Bed(QC): 4 Chair/Qds-cg-Gwyfx Xfer(QC): 4 Toilet Transfer (QC): 4 PT Plan Treatment/Plan Treatment Plan: Continue Plan of Care Treatment Plan: Bed Mobility, Education, Functional Activity Oscar, Functional Strength, Gait, Therapeutic Exercise, Transfers Treatment Duration: Jun 01, 2019 Frequency: 11 times per week Estimated Hrs Per Day: .5 hour per day Time/GCodes Time In: 825 Time Out: 850 Total Billed Treatment Time: 25 Total Billed Treatment 1 visit FA x 2 25 min MIRIAN SPAULDING PT May 21, 2019 10:12
--- NOTE | 2019-05-21 10:38 | Progress Note - Ortho ---
Progress Note Subjective Date of Exam 05/21/19 Chief Complaint POD#4 closed I'm rodding right femoral shaft fracture and open reduction internal fixation medial malleolus left ankle HPI/Events since last exam Mr. Oliva is 4 days postop closed IM rodding right femoral shaft and open reduction internal fixation medial malleolus left ankle. Centimeters up sitting in the chair. He stated it was painful transferring buddies carpal now that he sitting. Again most of his pain is in the left ribs and shoulder. He was wondering about his hip and leg position. He is having no problems with the cast on the left. He is more carpal now with the sling left arm Review of Systems Reviewed and no additions or changes Allergies: Coded Allergies: No Known Drug Allergies (Unverified , 03/14/17) Home Meds Discontinued Scripts Hydrocodone Bit/Acetaminophen (Hydrocodone/Acetaminophen 5/325mg Tablet) 1 Each Tablet, 1 TAB PO Q4H PRN, #20 TAB 0 Refills Prov:BEENA VAZQUEZ DO 03/16/17 Objective Exam Constitutional: [] HEENT: [] Neck: [] Cardiovascular: [] Respiratory: [] Gastrointestinal: [] Genitourinary: [] Skin: [] Back/Spine: [] Extremities: [Left armpain over the clavicle with less swelling but bruising noted. Pain with scapula. Normal sensation of the fingers and thumb with good capillary refill Left lower extremitycast in good condition. No pain at the knee or hip. Normal sensation to the toes with good capillary refill Right lower extremity holds the right leg in abduction and internal rotation with hip in flexion. I'm able to externally rotate his hip and leg. These got good motion of the knee. No instability of the knee. Less of an effusion. No calf tenderness and negative Homans. He has normal sensation of the foot and toes with good capillary refill.] Neurologic: [] Psychiatric: [] Hematologic/lymphatic/immunologic: [] Vital Signs Vital Signs Date Time Temp Pulse Resp B/P (MAP) Pulse Ox O2 Delivery O2 Flow Rate FiO2 05/21/19 10:00 116 19 141/89 (106) 94 Room Air 05/21/19 09:00 120 15 128/90 (103) 94 Room Air 05/21/19 08:00 97 Room Air 05/21/19 08:00 113 20 132/77 (95) 94 Room Air 05/21/19 08:00 36.6 05/21/19 07:24 95 Room Air 05/21/19 07:00 99 05/21/19 07:00 100 20 127/79 (95) 94 Room Air 05/21/19 06:00 27 130/81 (97) 91 Room Air 05/21/19 05:00 11 117/79 (92) 87 Room Air 05/21/19 04:07 94 Room Air 05/21/19 04:06 37.4 05/21/19 04:00 105 14 133/81 (98) 94 Room Air 05/21/19 03:00 86 16 129/87 (101) 91 Room Air 05/21/19 02:00 79 15 131/81 (98) 93 Room Air 05/21/19 01:00 90 10 134/79 (97) 95 Room Air 05/21/19 00:44 90 05/21/19 00:00 93 32 126/79 (95) 91 Room Air 05/21/19 00:00 94 Room Air 05/20/19 23:59 37.1 05/20/19 23:00 89 26 131/83 (99) 92 Room Air 05/20/19 22:00 87 15 127/74 (91) 92 Room Air 05/20/19 21:19 98 Room Air 05/20/19 21:00 25 137/85 (102) 97 Room Air 05/20/19 20:00 94 Room Air 05/20/19 20:00 93 24 131/87 (102) 95 Room Air 05/20/19 20:00 37.0 05/20/19 19:01 95 Room Air 05/20/19 19:00 95 25 137/55 (82) 92 Room Air 05/20/19 18:36 103 05/20/19 18:00 112 21 126/86 (99) 94 Room Air 05/20/19 17:00 107 29 131/89 (103) 92 Room Air 05/20/19 16:18 95 Room Air 05/20/19 16:00 92 16 133/103 (113) 91 Room Air 05/20/19 16:00 37.0 05/20/19 15:36 37.5 93 94 21 05/20/19 15:00 90 36 131/75 (93) 93 Room Air 05/20/19 14:00 94 20 140/82 (101) 94 Room Air 05/20/19 13:00 101 18 125/90 (102) 92 Room Air 05/20/19 13:00 94 05/20/19 12:00 93 Room Air 05/20/19 12:00 105 35 110/38 (62) 98 Room Air 05/20/19 11:00 107 17 137/77 (97) 98 Room Air I & O 05/21/19 07:00 Intake Total 6670 ml Output Total 6689 ml Balance -19 ml Lab Results Laboratory Tests 05/21/19 03:47: White Blood Count 7.6, Red Blood Count 2.93L, Hemoglobin 8.8L, Hematocrit 26L, Mean Corpuscular Volume 90, Mean Corpuscular Hemoglobin 30, Mean Corpuscular Hemoglobin Concent 33, Red Cell Distribution Width 12.5, Platelet Count 236, Mean Platelet Volume 9.1, Neutrophils (%) (Auto) 68, Lymphocytes (%) (Auto) 16, Monocytes (%) (Auto) 14H, Eosinophils (%) (Auto) 2, Basophils (%) (Auto) 1, Neutrophils # (Auto) 5.2, Lymphocytes # (Auto) 1.2, Monocytes # (Auto) 1.0, Eosinophils # (Auto) 0.2, Basophils # (Auto) 0.0, Sodium Level 139, Potassium Level 3.8, Chloride Level 109H, Carbon Dioxide Level 19L, Anion Gap 11, Blood Urea Nitrogen 7, Creatinine 0.65, Estimat Glomerular Filtration Rate > 60, BUN/Creatinine Ratio 11, Glucose Level 108H, Calcium Level 7.9L, Phosphorus Level 2.3, Magnesium Level 2.0 Microbiology 05/20/19 Gram Stain - Final, Resulted 05/20/19 Sputum Culture, Resulted Pending Assessment and Plan Assessment Doing well 4 days postop Problem List Unchanged Plan Continue partial weightbearing on the right and weightbearing as tolerated with transfers. No weight left leg. Sling left arm. I explained to him that after surgery had equal internal and external rotation of both hips. I think he is holding his left leg in abduction and internal r otation for comfort and the abductors and internal rotators are overriding the external rotators causing that position. I talked to therapy and no continue to work on range of motion of his hip and leg. Therapist stated she was able to get him to externally rotate the hip. Final Diagonsis Status post closed IM rodding right femur Status post open reduction internal fixation medial malleolus left ankle Level of the visit: Level 3 Clinical Quality Measures DVT/VTE Risk/Contraindication: Risk Factor Score Per Nursin RFS Level Per Nursing on Admit: 4+=Very High ZANE GRECO MD May 21, 2019 10:38
--- NOTE | 2019-05-21 11:00 | NUR ---
CM/SS: Visited with pt as per consult for need Plan: Pt to be evaluated by Inpatient Rehab to determine if he is a candidate Summary: Pt is sitting in the recliner on today, talking with his sister who is visiting from [place], [place]. Pt reports he is doing much better today. He reports being able to sit up in the chair for as long as he can tolerate it. Pt's mother Jair Serna is still here from [place] and plans to return home on tomorrow. She reports she is glad for pts progress. She continues to be concerned as to the long range plan for treatment. Discussed rehabilitation. She will keep in touch with pt as to his progress and plan once she returns to [place].
--- NOTE | 2019-05-21 11:43 | NUR ---
Declined communion for today. Building Estimator provided prayer and blessing.
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
--- NOTE | 2019-05-21 13:40 | Occ Therapy Progress Note ---
Therapy Progress Note Nurse present and changing pt's dressings during OT visit.. OT educated pt on what OT is, OT POC, and benefits of OT. Pt verbalized understanding. Pt declined ADLs today stating he has already completed a sponge bath and oral hygiene earlier. OT educated pt on arm exercises he can complete with his right arm while in bed/ sitting in a chair, he verbalized understanding. OT planned on having pt demo RUE exercises on this date but pt received a phone call that he said he needed to take, declining further OT on this date. OT will attempt again tomorrow. 1, visit 1325 EMILIANO BOGGS OT May 21, 2019 13:40
--- NOTE | 2019-05-21 14:52 | NUR ---
IRF Evaluation Order received to evaluate patient for the ARU. Chart review complete and findings discussed with Dr. Hand - patient accepted for admission. It appears patient's primary insurance provider is [facility]; therefore, prior authorization will be needed. Will continue for follow for medical stability and evaluation. Once it appears patient is nearing discharge, prior authorization will be initiated. Thank you for this referral.
[2019-05-21] MEDS: LORazepam 1 MG (ATIVAN) TAB PO PRN (21:28)
[2019-05-22] VITALS (14 sets, daily range): BP systolic 118–137; BP diastolic 72–87
[2019-05-22] MEDS: HYDROmorphone 2 MG/ML VIAL (DILAUDID) IV PRN ×6 (00:34→20:20)
[2019-05-22] MEDS: NS IV 1000 ML 1,000 ML IV SCH (02:35)
[2019-05-22] MEDS: oxyCODONE/APAP 10/325MG (PERCOCET 10) TABLET PO PRN ×5 (02:35→20:20)
[2019-05-22 03:56] LABS: BASOPHILS # (AUTO) 0.1 10^3/uL (0.0-0.1); BASOPHILS % (AUTO) 1 % (0-10); EOSINOPHILS # (AUTO) 0.3 10^3/uL (0.0-0.3); EOSINOPHILS % (AUTO) 4 % (0-10); HEMATOCRIT 26 % (40-54); HEMOGLOBIN 8.9 G/DL (13.3-17.7); LYMPHOCYTES # (AUTO) 1.5 X 10^3 (1.0-4.0); LYMPHOCYTES % (AUTO) 19 % (12-44); MEAN CORPUSCULAR HEMOGLOBIN 31 PG (25-34); MEAN CORPUSCULAR HGB CONC 34 G/DL (32-36); MEAN CORPUSCULAR VOLUME 90 FL (80-99); MEAN PLATELET VOLUME 9.2 FL (7.4-10.4); MONOCYTES # (AUTO) 1.1 X 10^3 (0.0-1.0); MONOCYTES % (AUTO) 15 % (0-12); NEUTROPHILS # (AUTO) 4.9 X 10^3 (1.8-7.8); NEUTROPHILS % (AUTO) 62 % (42-75); PLATELET COUNT 285 10^3/uL (130-400); RED CELL DISTRIBUTION WIDTH 12.6 % (10.0-14.5); WHITE BLOOD COUNT 7.9 10^3/uL (4.3-11.0)
[2019-05-22 04:12] LABS: BUN/CREATININE RATIO 10; CARBON DIOXIDE 18 MMOL/L (21-32); CHLORIDE 110 MMOL/L (98-107); CREATININE SERUM 0.61 MG/DL (0.60-1.30); GFR ESTIMATED > 60; GLUCOSE 105 MG/DL (70-105); MAGNESIUM 1.9 MG/DL (1.6-2.4); PHOSPHORUS 2.6 MG/DL (2.3-4.7); POTASSIUM 3.8 MMOL/L (3.6-5.0); SODIUM 138 MMOL/L (135-145)
[2019-05-22] MEDS: RT-ALBUTEROL/IPRATROPIUM 3 ML (DUONEB) VIAL INH SCH ×3 (04:23→10:42)
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
[2019-05-22] MEDS: PANTOPRAZOLE 40 MG (PROTONIX) VIAL IVP SCH (08:20)
--- NOTE | 2019-05-22 08:48 | Physical Therapy Daily Note ---
PT Daily Note-Current Subjective Patient in bed pre tx, agrees to PT, has 10/10 pain, nurse gives him pain meds after tx, nurse assists with transfer. Appearance Patient in recliner post tx with nurse call, phone, tray, legs elevated. Mental Status Patient Orientation: Person, Place, Situation Attachments: Chest Tube, SCD's, Lara Catheter, IV Transfers SCALE: Activities may be completed with or without assistive devices. 3-Kxrhubznuh-hzvcucs completes the activity by him/herself with no assistance from a helper. 5-Set-up or Clean-up Assistance-helper sets up or cleans up; patient completes activity. [place] assists only prior to or following the activity. 4-Supervision or Touching Assistance-helper provides verbal cues and/or touching/steadying and/or contact guard assistance as patient completes activity. Assistance may be provided throughout the activity or intermittently. 3-Partial/Moderate Assistance-helper does LESS THAN HALF the effort. [place] lifts, holds or supports trunk or limbs, but provides less than half the effort. 2-Substantial/Maximal Assistance-helper does MORE THAN HALF the effort. [place] lifts or holds trunk or limbs and provides more than half the effort. 1-Csvkplorr-khovvx does ALL the effort. Patient does none of the effort to complete the activity. Or, the assistance of 2 or more helpers is required for the patient to complete the activity. If activity was not attempted, code reason: 7-Patient Refused. 9-Not Applicable-not attempted and the patient did not perform the activity before the current illness, exacerbation or injury. 10-Not Attempted due to Environmental Limitations-(lack of equipment, weather restraints, etc.). 88-Not Attempted due to Medical Conditions or Safety Concerns. Roll Left & Right (QC): 6 Lying to Sitting/Side of Bed(Q: 4 Sit to Stand (QC): 3 Chair/Gne-xf-Jxdhm Xfer(QC): 3 Mod assist for stand pivot transfer to recliner, patient is only partial weight bearing on right leg so he does a combination of bearing weight through right leg and arm and has therapist assist. Weight Bearing Right Lower Extremity: Right Partial Weight Bearing Left Lower Extremity: Left Non Weight Bearing Exercises Seated Therapy Exercises: Ankle pumps (toe flex/ext on the left side), Long arc quads Seated Reps: 15 Treatments bed mobility and transfers, LE AROM Assessment Current Status: Fair Progress improving bed mobility PT Short Term Goals Short Term Goals Time Frame: May 25, 2019 Roll Left & Right: 3 Sit to lyin Lying to sitting on side of be: 3 Does pt use a wc or scooter: No PT Accounts Payable Technician Goals Accounts Payable Technician Goals PT Prison Goals Time Frame: Jun 01, 2019 Roll Left & Right (QC): 4 Sit to Lying (QC): 4 Lying-Sitting on Side/Bed(QC): 4 Chair/Ghh-gm-Yiebq Xfer(QC): 4 Toilet Transfer (QC): 4 PT Plan Problem List Problem List: Activity Tolerance, Functional Strength, Safety, Balance, Gait, Transfer, Bed Mobility, ROM Treatment/Plan Treatment Plan: Continue Plan of Care Treatment Plan: Bed Mobility, Education, Functional Activity Oscar, Functional Strength, Gait, Therapeutic Exercise, Transfers Treatment Duration: Jun 01, 2019 Frequency: 11 times per week Estimated Hrs Per Day: .5 hour per day Safety Risks/Education Patient Education: Transfer Techniques, Reviewed Precautions, Correct Positioning, Safety Issues Teaching Recipient: Patient Teaching Methods: Demonstration, Discussion Response to Teaching: Reinforcement Needed Time/GCodes Time In: 0820 Time Out: 0844 Total Billed Treatment Time: 24 Total Billed Treatment 1 visit FA CARMELITA PATTON PT May 22, 2019 08:48
--- NOTE | 2019-05-22 10:22 | NUR ---
0935 PT TRANSFERRED TO ROOM 418 VIA CHAIR, ACCOMPANIED BY ICU STAFF. REPORT GIVEN TO PASCALE VILLA.
--- NOTE | 2019-05-22 11:02 | Physical Therapy Daily Note ---
PT Daily Note-Current Subjective Patient has moved to the medical floor 418. He is in a recliner and doesn't want to get back to bed, agrees to seated exercises. Patient voices no complaints of pain. Appearance Patient in recliner post tx with nurse call, phone, tray, legs elevated and right leg on pillow, has sling on left arm. Mental Status Patient Orientation: Person, Place, Situation Attachments: Chest Tube, Lara Catheter Transfers SCALE: Activities may be completed with or without assistive devices. 4-Ivrvlkknnu-ydendrq completes the activity by him/herself with no assistance from a helper. 5-Set-up or Clean-up Assistance-helper sets up or cleans up; patient completes activity. [place] assists only prior to or following the activity. 4-Supervision or Touching Assistance-helper provides verbal cues and/or touching/steadying and/or contact guard assistance as patient completes activity. Assistance may be provided throughout the activity or intermittently. 3-Partial/Moderate Assistance-helper does LESS THAN HALF the effort. [place] lifts, holds or supports trunk or limbs, but provides less than half the effort. 2-Substantial/Maximal Assistance-helper does MORE THAN HALF the effort. [place] lifts or holds trunk or limbs and provides more than half the effort. 5-Ftswrsscf-awvibt does ALL the effort. Patient does none of the effort to complete the activity. Or, the assistance of 2 or more helpers is required for the patient to complete the activity. If activity was not attempted, code reason: 7-Patient Refused. 9-Not Applicable-not attempted and the patient did not perform the activity before the current illness, exacerbation or injury. 10-Not Attempted due to Environmental Limitations-(lack of equipment, weather restraints, etc.). 88-Not Attempted due to Medical Conditions or Safety Concerns. Weight Bearing Right Lower Extremity: Right Partial Weight Bearing Left Lower Extremity: Left Non Weight Bearing Exercises Seated Therapy Exercises: Ankle pumps (just toe flex/ext on the left side), Long arc quads, Hip flexion Seated Reps: 20 Treatments LE seated exercises Assessment Current Status: Fair Progress good AROM of BLE PT Short Term Goals Short Term Goals Time Frame: May 25, 2019 Roll Left & Right: 3 Sit to lyin Lying to sitting on side of be: 3 Does pt use a wc or scooter: No PT Psychiatric Nurse Practitioner Goals Detention Goals PT Psychiatric Nurse Practitioner Goals Time Frame: Jun 01, 2019 Roll Left & Right (QC): 4 Sit to Lying (QC): 4 Lying-Sitting on Side/Bed(QC): 4 Chair/Wvr-sj-Noxis Xfer(QC): 4 Toilet Transfer (QC): 4 PT Plan Problem List Problem List: Activity Tolerance, Functional Strength, Safety, Balance, Gait, Transfer, Bed Mobility, ROM Treatment/Plan Treatment Plan: Continue Plan of Care Treatment Plan: Bed Mobility, Education, Functional Activity Oscar, Functional Strength, Gait, Therapeutic Exercise, Transfers Treatment Duration: Jun 01, 2019 Frequency: 11 times per week Estimated Hrs Per Day: .5 hour per day Safety Risks/Education Patient Education: Reviewed Precautions, Correct Positioning, Safety Issues Teaching Recipient: Patient Teaching Methods: Demonstration, Discussion Response to Teaching: Reinforcement Needed Time/GCodes Time In: 1048 Time Out: 1057 Total Billed Treatment Time: 9 Total Billed Treatment 1 visit EX 9' CARMELITA NAVA PT May 22, 2019 11:02
--- NOTE | 2019-05-22 11:35 | Progress Note - Ortho ---
Progress Note Subjective Date of Exam 05/22/19 Chief Complaint POD#5 I M rodding right femoral shaft and open reduction internal fixation medial malleolus left ankle HPI/Events since last exam Mr. Oliva is 5 days postop. He is up sitting chair today without any problems. His main pain is his left shoulder and chest. Less pain in the left ankle and right leg. Review of Systems Reviewed and no additions or changes Allergies: Coded Allergies: No Known Drug Allergies (Unverified , 03/14/17) Home Meds Discontinued Scripts Hydrocodone Bit/Acetaminophen (Hydrocodone/Acetaminophen 5/325mg Tablet) 1 Each Tablet, 1 TAB PO Q4H PRN, #20 TAB 0 Refills Prov:BEENA VAZQUEZ DO 03/16/17 Objective Exam Constitutional: [] HEENT: [] Neck: [] Cardiovascular: [] Respiratory: [] Gastrointestinal: [] Genitourinary: [] Skin: [] Back/Spine: [] Extremities: [] Left upper extremity in sling. Swelling and bruising over the clavicle pain with palpation. Pain over the scapula. Neurovascularly intact left upper extremity Right lower extremity dressings intact. Less swelling right knee. Good motion of the hip with flexion. He is tight in external rotation but I showed him some exercises and if he puts his left foot on the chair he can externally rotate approximately 30-35 just with a gentle stretch. Compared to the other side his internal rotation is pretty much equal. He lacks about 30 of external rotation on the right eye think that's mainly due to tightness Left lower extremitycast intact. He can move his toes has normal sensation and good capillary refill Neurologic: [] Psychiatric: [] Hematologic/lymphatic/immunologic: [] Vital Signs Vital Signs Date Time Temp Pulse Resp B/P (MAP) Pulse Ox O2 Delivery O2 Flow Rate FiO2 05/22/19 10:00 36.0 101 18 123/82 (96) 96 Room Air 05/22/19 09:00 116 45 95 Room Air 05/22/19 08:15 98 Room Air 05/22/19 08:00 102 26 137/80 (99) 97 Room Air 05/22/19 07:14 36.9 05/22/19 07:00 102 05/22/19 07:00 90 16 121/76 (91) 96 Room Air 05/22/19 06:00 89 22 131/81 (98) 94 Room Air 05/22/19 05:00 91 19 123/87 (99) 98 Room Air 05/22/19 04:00 97 Room Air 05/22/19 04:00 94 17 123/77 (92) 96 Room Air 05/22/19 03:00 100 26 119/79 (92) 97 Room Air 05/22/19 02:00 87 17 118/73 (88) 94 Room Air 05/22/19 01:00 80 05/22/19 01:00 89 26 122/75 (91) 93 Room Air 05/22/19 00:00 36.8 05/22/19 00:00 93 18 130/72 (91) 94 Room Air 05/21/19 23:20 96 Room Air 05/21/19 23:00 100 26 131/77 (95) 93 Room Air 05/21/19 22:00 92 17 129/73 (91) 96 Room Air 05/21/19 21:00 112 24 126/73 (90) 98 Room Air 05/21/19 20:00 Room Air 05/21/19 20:00 112 27 134/85 (101) 95 Room Air 05/21/19 20:00 36.8 Room Air 05/21/19 19:40 98 Room Air 05/21/19 19:20 98 Room Air 05/21/19 19:00 104 05/21/19 19:00 115 17 134/75 (94) 97 Room Air 05/21/19 18:00 96 33 130/85 (100) 96 Room Air 05/21/19 17:00 113 18 130/53 (78) 97 Room Air 05/21/19 16:00 98 Room Air 05/21/19 16:00 36.7 05/21/19 16:00 105 28 135/66 (89) 93 Room Air 05/21/19 15:40 100 Room Air 05/21/19 15:00 105 24 142/84 (103) 93 Room Air 05/21/19 14:00 96 21 130/83 (99) 94 Room Air 05/21/19 13:00 116 05/21/19 13:00 116 26 134/88 (103) 94 Room Air 05/21/19 12:00 130 13 135/123 (127) 96 Room Air 05/21/19 12:00 36.9 05/21/19 12:00 99 Room Air I & O 05/22/19 07:00 Intake Total 4120 ml Output Total 7785 ml Balance -3665 ml Lab Results Laboratory Tests 05/22/19 03:21: White Blood Count 7.9, Red Blood Count 2.92L, Hemoglobin 8.9L, Hematocrit 26L, Mean Corpuscular Volume 90, Mean Corpuscular Hemoglobin 31, Mean Corpuscular Hem oglobin Concent 34, Red Cell Distribution Width 12.6, Platelet Count 285, Mean Platelet Volume 9.2, Neutrophils (%) (Auto) 62, Lymphocytes (%) (Auto) 19, Monocytes (%) (Auto) 15H, Eosinophils (%) (Auto) 4, Basophils (%) (Auto) 1, Neutrophils # (Auto) 4.9, Lymphocytes # (Auto) 1.5, Monocytes # (Auto) 1.1H, Eosinophils # (Auto) 0.3, Basophils # (Auto) 0.1, Sodium Level 138, Potassium Level 3.8, Chloride Level 110H, Carbon Dioxide Level 18L, Anion Gap 10, Blood Urea Nitrogen 6L, Creatinine 0.61, Estimat Glomerular Filtration Rate > 60, BUN/Creatinine Ratio 10, Glucose Level 105, Calcium Level 8.0L, Phosphorus Level 2.6, Magnesium Level 1.9 Microbiology 05/20/19 Gram Stain - Final, Resulted 05/20/19 Sputum Culture - Preliminary, Resulted Usual upper respiratory anibal Assessment and Plan Assessment Improving at 5 days postop Problem List Unchanged Plan Continue out of bed as tolerated with weightbearing on the right leg for transfers. No way to left upper extremity or left lower extremity. Continue to work on stretching exercises right hip Final Diagonsis Status post IM rodding right femur and open reduction internal fixation left medial malleolus Level of the visit: Level 3 Clinical Quality Measures DVT/VTE Risk/Contraindication: Risk Factor Score Per Nursin RFS Level Per Nursing on Admit: 4+=Very High ZANE GRECO MD May 22, 2019 11:35
--- NOTE | 2019-05-22 12:09 | Occupational Ther Daily Note ---
OT Current Status-Daily Note Subjective Pt seen in room, up in recliner, agreeable to OT. Pain not rated but at times visible with movement. Appearance Alert, cooperative ADL-Treatment Therapy Code Descriptions/Definitions Functional [place] Measure: 0=Not Assessed/NA 4=Minimal Assistance 1=Total Assistance 5=Supervision or Setup 2=Maximal Assistance 6=Modified [place] 3=Moderate Assistance 7=Complete IndependenceSCALE: Activities may be completed with or without assistive devices. 4-Orthxevryt-ymsggsn completes the activity by him/herself with no assistance from a helper. 5-Set-up or Clean-up Assistance-helper sets up or cleans up; patient completes activity. [place] assists only prior to or following the activity. 4-Supervision or Touching Assistance-helper provides verbal cues and/or touching/steadying and/or contact guard assistance as patient completes activity. Assistance may be provided throughout the activity or intermittently. 3-Partial/Moderate Assistance-helper does LESS THAN HALF the effort. [place] lifts, holds or supports trunk or limbs, but provides less than half the effort. 2-Substantial/Maximal Assistance-helper does MORE THAN HALF the effort. [place] lifts or holds trunk or limbs and provides more than half the effort. 6-Nmhekiyap-hdnyru does ALL the effort. Patient does none of the effort to complete the activity. Or, the assistance of 2 or more helpers is required for the patient to complete the activity. If activity was not attempted, code reason: 7-Patient Refused. 9-Not Applicable-not attempted and the patient did not perform the activity before the current illness, exacerbation or injury. 10-Not Attempted due to Environmental Limitations-(lack of equipment, weather restraints, etc.). 88-Not Attempted due to Medical Conditions or Safety Concerns. Other Treatment Pt education on purpose of UE movement and different types of movement, such as active and active assistive. Completed 10 reps R UE AROM with no additional resistance, working on shoulder, elbow, forearm, wrist and hand. Has flexion contracture R ring finger from injury in [place]. On L UE, pt reported that he is allowed to move L shoulder but physician report shows no weight bearing. He needed to stabilize his L shoulder manually to do elbow flexion. Encouraged to stretch out into full elbow extension when in bed. Completed 10 reps AROM L forearm, wrist and fingers. Assisted with R UE for passive movement shoulder flexion L, limited to approx 80-90 degrees. Pt encouraged to not move to the point of pain. Also encouraged to complete active scapular abd and add while up in chair, again not going to point of pain. Pt educ on using L forearm during ADLs, with verbal understanding. Pt ed to do movement and stretches on his own to prevent tightness. Pt left up in recliner, all needs met. Education OT Patient Education: Exercise program, Purpose of tx/functional activities, Reviewed precautions Teaching Recipient: Patient Teaching Methods: Demonstration, Discussion Response to Teaching: Verbalize Understanding, Return Demonstration, Reinforcement Needed OT Fpc Goals Rn Chemical Dependency Goals Time Frame: May 25, 2019 Eating (QC): 6 Oral Hygiene (QC): 6 Toileting Hygiene (QC): 2 Shower/Bathe Self (QC): 3 Upper Body Dressing (QC): 4 Lower Body Dressing (QC): 2 On/Off Footwear (QC): 5 Additional Goals: 1-Demonstrate ADL Tasks, 2-Verbalize Understanding, 3- ImproveStrength/Oscar 1=Demonstrate adherence to instructed precautions during ADL tasks. 2=Patient will verbalize/demonstrate understanding of assistive devices/modifi cations for ADL. 3=Patient will improve strength/tolerance for activity to enable patient to perform ADL's. OT Education/Plan Discharge Recommendations Plan/Recommendations: Continue POC Treatment Plan/Plan of Care Patient would benefit from OT for education, treatment and training to promote independence in ADL's, mobility, safety and/or upper extremity function for ADL's. Plan of Care: ADL Retraining, Concurrent Therapy, Functional Mobility, Orthotic Fitting/Training, UE Funct Exercise/Act, W/C Management Training Treatment Duration: May 25, 2019 Frequency: 5 times per week Estimated Hrs Per Day: .25 hour per day Agreement: Yes Rehab Potential: Good Time/GCodes Start Time: 11:20 Stop Time: 11:40 Total Time Billed (hr/min): 20 Billed Treatment Time visit, 20 minutes exercise BRANDON CELETSIN OT May 22, 2019 12:09
--- NOTE | 2019-05-22 13:41 | Progress Note - Surgery ---
Subjective Time Seen by a Provider: 12:18 Subjective/Events-last exam Pt seen and examined, states pain mostly controlled. Denies SOB and states he thinks he is doing better. Review of Systems General: No Chills, No Night Sweats Pulmonary: Dyspnea; No Cough Cardiovascular: No: Chest Pain, Palpitations Gastrointestinal: No: Nausea, Vomiting, Abdominal Pain Musculoskeletal: shoulder pain, back pain, leg pain, foot pain Objective Exam Vital Signs Date Time Temp Pulse Resp B/P (MAP) Pulse Ox O2 Delivery O2 Flow Rate FiO2 05/22/19 12:00 36.1 101 18 132/74 (93) 95 Room Air 05/22/19 11:00 36.1 101 18 132/74 (93) 95 Room Air 05/22/19 10:00 36.0 101 18 123/82 (96) 96 Room Air 05/22/19 09:00 116 45 95 Room Air 05/22/19 08:15 98 Room Air 05/22/19 08:00 102 26 137/80 (99) 97 Room Air 05/22/19 07:14 36.9 05/22/19 07:00 102 05/22/19 07:00 90 16 121/76 (91) 96 Room Air 05/22/19 06:00 89 22 131/81 (98) 94 Room Air 05/22/19 05:00 91 19 123/87 (99) 98 Room Air 05/22/19 04:00 97 Room Air 05/22/19 04:00 94 17 123/77 (92) 96 Room Air 05/22/19 03:00 100 26 119/79 (92) 97 Room Air 05/22/19 02:00 87 17 118/73 (88) 94 Room Air 05/22/19 01:00 80 05/22/19 01:00 89 26 122/75 (91) 93 Room Air 05/22/19 00:00 36.8 05/22/19 00:00 93 18 130/72 (91) 94 Room Air 05/21/19 23:20 96 Room Air 05/21/19 23:00 100 26 131/77 (95) 93 Room Air 05/21/19 22:00 92 17 129/73 (91) 96 Room Air 05/21/19 21:00 112 24 126/73 (90) 98 Room Air 05/21/19 20:00 Room Air 05/21/19 20:00 112 27 134/85 (101) 95 Room Air 05/21/19 20:00 36.8 Room Air 05/21/19 19:40 98 Room Air 05/21/19 19:20 98 Room Air 05/21/19 19:00 104 05/21/19 19:00 115 17 134/75 (94) 97 Room Air 05/21/19 18:00 96 33 130/85 (100) 96 Room Air 05/21/19 17:00 113 18 130/53 (78) 97 Room Air 05/21/19 16:00 98 Room Air 05/21/19 16:00 36.7 05/21/19 16:00 105 28 135/66 (89) 93 Room Air 05/21/19 15:40 100 Room Air 05/21/19 15:00 105 24 142/84 (103) 93 Room Air 05/21/19 14:00 96 21 130/83 (99) 94 Room Air I & O 05/22/19 07:00 Intake Total 4120 ml Output Total 7785 ml Balance -3665 ml Capillary Refill : Less Than 3 SecondsLess Than 3 Seconds General Appearance: No Apparent Distress, WD/WN HEENT: PERRL/EOMI, Moist Mucous Membranes; No Pharyngeal Erythema, No Scleral Icterus (L), No Scleral Icterus (R) Neck: Non Tender, Supple Respiratory: Normal Breath Sounds (right), No Accessory Muscle Use, No Respiratory Distress, Decreased Breath Sounds (Left); No Wheezing Cardiovascular: Regular Rate, Rhythm, No Edema, No Murmur Peripheral Pulses: 2+ Radial Pulses (R), 2+ Radial Pulses (L) Gastrointestinal: non tender, soft, no organomegaly Extremity: Other (Left leg in soft cast, left clavicle tender to palpation and freely mobile) Neurologic/Psychiatric: Alert, Oriented x3 Skin: Normal Color, Warm/Dry, Other (bruising to left clavicular area) Results Lab Laboratory Tests 05/22/19 03:21: White Blood Count 7.9, Red Blood Count 2.92L, Hemoglobin 8.9L, Hematocrit 26L, Mean Corpuscular Volume 90, Mean Corpuscular Hemoglobin 31, Mean Corpuscular Hemoglobin Concent 34, Red Cell Distribution Width 12.6, Platelet Count 285, Mean Platelet Volume 9.2, Neutrophils (%) (Auto) 62, Lymphocytes (%) (Auto) 19, Monocytes (%) (Auto) 15H, Eosinophils (%) (Auto) 4, Basophils (%) (Auto) 1, Neutrophils # (Auto) 4.9, Lymphocytes # (Auto) 1.5, Monocytes # (Auto) 1.1H, Eosinophils # (Auto) 0.3, Basophils # (Auto) 0.1, Sodium Level 138, Potassium Level 3.8, Chloride Level 110H, Carbon Dioxide Level 18L, Anion Gap 10, Blood Urea Nitrogen 6L, Creatinine 0.61, Estimat Glomerular Filtration Rate > 60, BUN/Creatinine Ratio 10, Glucose Level 105, Calcium Level 8.0L, Phosphorus Level 2.6, Magnesium Level 1.9 Microbiology 05/20/19 Gram Stain - Final, Resulted 05/20/19 Sputum Culture - Preliminary, Resulted Usual upper respiratory anibal Assessment/Plan Assessment/Plan Assessment/Plan Left Hemo-Pneumothorax -s/p Thoravent Right pneumothorax - resolved Left Clavicular fx Left ankle fx - in cast Right Femur fx - s/p IM rodding Left rib fx Left scapular fx Mandibular fx and dislocation Pt CXR looks much better today after hooking Thoravent up to [facility]; no longer eloy out and no air leak. Continue IS and breathing treatments. Pt will need inpt rehab, will have social work start that process. I spoke with Dr. Durbin today and he will probably repair the jaw on Monday. Continue pain control, PT & OT. Clinical Quality Measures DVT/VTE Risk/Contraindication: Risk Factor Score Per Nursin RFS Level Per Nursing on Admit: 4+=Very High GINA DIAZ DO May 22, 2019 13:41
[2019-05-22] MEDS: RT-LEVALBUTEROL (XOPENEX) 1.25 MG/3 ML NEB NON-FORMULARY INH SCH ×2 (15:38→20:25)
[2019-05-22] MEDS: LORazepam 1 MG (ATIVAN) TAB PO PRN (20:19)
[2019-05-23] VITALS (7 sets, daily range): BP systolic 120–137; BP diastolic 71–78
[2019-05-23] MEDS: HYDROmorphone 2 MG/ML VIAL (DILAUDID) IV PRN ×8 (00:14→20:52)
[2019-05-23] MEDS: oxyCODONE/APAP 10/325MG (PERCOCET 10) TABLET PO PRN ×7 (00:15→20:33)
[2019-05-23] MEDS: RT-LEVALBUTEROL (XOPENEX) 1.25 MG/3 ML NEB NON-FORMULARY INH SCH ×4 (02:24→20:37)
[2019-05-23] MEDS: LORazepam 1 MG (ATIVAN) TAB PO PRN ×2 (04:11→20:33)
[2019-05-23 06:05] LABS: BASOPHILS # (AUTO) 0.1 10^3/uL (0.0-0.1); BASOPHILS % (AUTO) 1 % (0-10); EOSINOPHILS # (AUTO) 0.3 10^3/uL (0.0-0.3); EOSINOPHILS % (AUTO) 3 % (0-10); HEMATOCRIT 28 % (40-54); HEMOGLOBIN 9.1 G/DL (13.3-17.7); LYMPHOCYTES # (AUTO) 1.2 X 10^3 (1.0-4.0); LYMPHOCYTES % (AUTO) 13 % (12-44); MEAN CORPUSCULAR HEMOGLOBIN 30 PG (25-34); MEAN CORPUSCULAR HGB CONC 33 G/DL (32-36); MEAN CORPUSCULAR VOLUME 91 FL (80-99); MEAN PLATELET VOLUME 9.1 FL (7.4-10.4); MONOCYTES # (AUTO) 1.5 X 10^3 (0.0-1.0); MONOCYTES % (AUTO) 16 % (0-12); NEUTROPHILS # (AUTO) 6.3 X 10^3 (1.8-7.8); NEUTROPHILS % (AUTO) 67 % (42-75); PLATELET COUNT 365 10^3/uL (130-400); RED CELL DISTRIBUTION WIDTH 13.2 % (10.0-14.5); WHITE BLOOD COUNT 9.3 10^3/uL (4.3-11.0)
[2019-05-23 06:27] LABS: BUN/CREATININE RATIO 13; CALCIUM 8.3 MG/DL (8.5-10.1); CARBON DIOXIDE 20 MMOL/L (21-32); CHLORIDE 106 MMOL/L (98-107); CREATININE SERUM 0.63 MG/DL (0.60-1.30); GFR ESTIMATED > 60; GLUCOSE 111 MG/DL (70-105); MAGNESIUM 1.8 MG/DL (1.6-2.4); PHOSPHORUS 3.3 MG/DL (2.3-4.7); POTASSIUM 3.5 MMOL/L (3.6-5.0); SODIUM 137 MMOL/L (135-145)
--- NOTE | 2019-05-23 07:35 | Progress Note - Surgery ---
BHARGAVI SOLIS,MED STUDENT 05/23/19 0735: Subjective Date Seen by a Provider: May 23, 2019 Time Seen by a Provider: 06:33 Subjective/Events-last exam Patient seen and examined this morning. He states he is feeling great today. He denies any trouble breathing, but is still having pain in his left clavicle and scapula. He states he is eating solid foods again, but has not had a bowel movement since being here. His oxygen saturation has remained above 90% throughout the night Review of Systems General: No Chills, No Fatigue HEENT: No Head Aches, No Visual Changes Pulmonary: No Dyspnea, No Cough Cardiovascular: No: Chest Pain, Palpitations, Edema Gastrointestinal: Constipation; No: Nausea, Vomiting, Abdominal Pain, Diarrhea Musculoskeletal: shoulder pain (left clavicle and scapula) Objective Exam Vital Signs Date Time Temp Pulse Resp B/P (MAP) Pulse Ox O2 Delivery O2 Flow Rate FiO2 05/23/19 04:12 36.2 05/23/19 04:12 36.2 05/23/19 03:21 36.2 93 20 125/75 (92) 96 Room Air 05/23/19 02:36 37.4 05/23/19 02:24 98 Room Air 05/23/19 00:45 37.4 05/23/19 00:45 37.4 05/23/19 00:15 37.4 05/23/19 00:15 37.4 05/23/19 00:14 37.4 05/23/19 00:13 36.8 88 20 130/78 (95) 98 Room Air 05/22/19 21:00 95 Room Air 1.00 05/22/19 20:50 37.4 05/22/19 20:50 37.4 05/22/19 20:25 95 Room Air 05/22/19 20:20 37.4 05/22/19 20:20 37.4 05/22/19 20:02 37.4 97 20 128/75 (92) 98 Room Air 05/22/19 16:07 36.7 95 20 136/81 (99) 98 Room Air 05/22/19 12:00 36.1 101 18 132/74 (93) 95 Room Air 05/22/19 11:00 36.1 101 18 132/74 (93) 95 Room Air 05/22/19 10:00 36.0 101 18 123/82 (96) 96 Room Air 05/22/19 09:00 116 45 95 Room Air 05/22/19 08:15 98 Room Air 05/22/19 08:00 102 26 137/80 (99) 97 Room Air I & O 05/23/19 07:00 Intake Total 3980 ml Output Total 4770 ml Balance -790 ml Capillary Refill : Less Than 3 SecondsLess Than 3 Seconds General Appearance: No Apparent Distress, WD/WN HEENT: PERRL/EOMI, Moist Mucous Membranes; No Pharyngeal Erythema, No Scleral Icterus (L), No Scleral Icterus (R) Neck: Non Tender, Supple; No Lymphadenopathy (L), No Lymphadenopathy (R) Respiratory: No Accessory Muscle Use, No Respiratory Distress, Crackles (few, left lower lobe), Decreased Breath Sounds (Left lower lobe); No Wheezing Cardiovascular: Regular Rate, Rhythm, No Edema, No Murmur Peripheral Pulses: 2+ Radial Pulses (R), 2+ Radial Pulses (L) Gastrointestinal: non tender, soft, no organomegaly Extremity: Other (Left leg in soft cast, left clavicle tender to palpation and freely mobile) Neurologic/Psychiatric: Alert, Oriented x3 Skin: Normal Color, Warm/Dry, Other (bruising to left clavicular area) Results Lab Laboratory Tests 05/23/19 05:25: White Blood Count 9.3, Red Blood Count 3.04L, Hemoglobin 9.1L, Hematocrit 28L, Mean Corpuscular Volume 91, Mean Corpuscular Hemoglobin 30, Mean Corpuscular Hemoglobin Concent 33, Red Cell Distribution Width 13.2, Platelet Count 365, Mean Platelet Volume 9.1, Neutrophils (%) (Auto) 67, Lymphocytes (%) (Auto) 13, Monocytes (%) (Auto) 16H, Eosinophils (%) (Auto) 3, Basophils (%) (Auto) 1, Neutrophils # (Auto) 6.3, Lymphocytes # (Auto) 1.2, Monocytes # (Auto) 1.5H, Eosinophils # (Auto) 0.3, Basophils # (Auto) 0.1, Sodium Level 137, Potassium Level 3.5L, Chloride Level 106, Carbon Dioxide Level 20L, Anion Gap 11, Blood Urea Nitrogen 8, Creatinine 0.63, Estimat Glomerular Filtration Rate > 60, BUN/Creatinine Ratio 13, Glucose Level 111H, Calcium Level 8.3L, Phosphorus Level 3.3, Magnesium Level 1.8 Microbiology 05/20/19 Gram Stain - Final, Resulted 05/20/19 Sputum Culture - Preliminary, Resulted Usual upper respiratory anibal Fungus Assessment/Plan Assessment/Plan Assessment/Plan Left Hemo-Pneumothorax -s/p Thoravent Right pneumothorax - resolved Left Clavicular fx Left ankle fx - in cast Right Femur fx - s/p IM rodding Left rib fx Left scapular fx Mandibular fx and dislocation Pt CXR looks much better today after hooking Thoravent up to [facility]; no longer eloy out and no air leak. Continue IS and breathing treatments. Pt will need inpt rehab, will have social work start that process. I spoke with Dr. Durbin today and he will probably repair the jaw on Monday. Continue pain control, PT & OT. Clinical Quality Measures DVT/VTE Risk/Contraindication: Risk Factor Score Per Nursin RFS Level Per Nursing on Admit: 4+=Very High GINA IRWIN DO 05/23/192020: Subjective Time Seen by a Provider: 09:40 Subjective/Events-last exam Pt seen and examined, tolerating diet and pain mostly controlled. No complaints. Objective Exam General Appearance: No Apparent Distress Respiratory: Lungs Clear, Decreased Breath Sounds (Left lower lobe) Cardiovascular: Regular Rate, Rhythm, No Edema Gastrointestinal: non tender, soft, no organomegaly Assessment/Plan Assessment/Plan Assessment/Plan Thoravent hooked up to waterseal, taken off continuous suction. Will check CXR in am. Supervisory-Addendum Brief Verification & Attestation Participated in pt care: history, MDM, physical Personally performed: exam, history, MDM Care discussed with: Medical Student Procedures: n/a Verification and Attestation of Medical Student E/M Service A medical student performed and documented this service in my presence. I reviewed and verified all information documented by the medical student and made modifications to such information, when appropriate. I personally performed the physical exam and medical decision making. Gina Irwin, May 23, 2019,20:29 BHARGAVI SOLIS,MED STUDENT May 23, 2019 07:35 GINA IRWIN DO May 23, 2019 20:21
--- NOTE | 2019-05-23 07:38 | Diagnostic Imaging Report ---
INDICATION: Dyspnea. COMPARISON: 05/22/2019 FINDINGS: Single frontal radiograph view of the chest was obtained and again demonstrates multiple displaced left-sided rib fractures. There is asymmetric elevation of the left hemidiaphragm with probable left basilar effusion/hemothorax. Indwelling curvilinear opacity is noted projecting over the left lateral upper lung field and may be on the basis of smallbore chest tube. There is no evidence of pneumothorax on either side. Right lung remains relatively clear. Cardiac silhouette is partially obscured, but appears stable. IMPRESSION:. Stable exam of the chest as described above. Dictated by: Dictated on workstation # [id number]
[2019-05-23] MEDS: PANTOPRAZOLE 40 MG (PROTONIX) VIAL IVP SCH (08:10)
--- NOTE | 2019-05-23 09:42 | Occupational Ther Daily Note ---
OT Current Status-Daily Note Subjective Pt laying in bed, agreeable to OT tx. Pt states he is pain is under control at the moment, reporting his pain med has kicked in. Mental Status/Objective Attachments: Chest Tube, Lara Catheter ADL-Treatment Therapy Code Descriptions/Definitions Functional [place] Measure: 0=Not Assessed/NA 4=Minimal Assistance 1=Total Assistance 5=Supervision or Setup 2=Maximal Assistance 6=Modified [place] 3=Moderate Assistance 7=Complete IndependenceSCALE: Activities may be completed with or without assistive devices. 1-Iljwbusjey-vhfqnwr completes the activity by him/herself with no assistance from a helper. 5-Set-up or Clean-up Assistance-helper sets up or cleans up; patient completes activity. [place] assists only prior to or following the activity. 4-Supervision or Touching Assistance-helper provides verbal cues and/or touching/steadying and/or contact guard assistance as patient completes activity. Assistance may be provided throughout the activity or intermittently. 3-Partial/Moderate Assistance-helper does LESS THAN HALF the effort. [place] lifts, holds or supports trunk or limbs, but provides less than half the effort. 2-Substantial/Maximal Assistance-helper does MORE THAN HALF the effort. [place] lifts or holds trunk or limbs and provides more than half the effort. 1-Zddaguhke-uqlram does ALL the effort. Patient does none of the effort to complete the activity. Or, the assistance of 2 or more helpers is required for the patient to complete the activity. If activity was not attempted, code reason: 7-Patient Refused. 9-Not Applicable-not attempted and the patient did not perform the activity before the current illness, exacerbation or injury. 10-Not Attempted due to Environmental Limitations-(lack of equipment, weather restraints, etc.). 88-Not Attempted due to Medical Conditions or Safety Concerns. Oral Hygiene (QC): 5 (Pt able to complete task at bed level with set up for task.) Other Treatment Pt participated in OT session with focus on UE exercises in order to increase ROM, strength, and improve movements for ADLs. Pt completed x20 reps BUE wrist flexion/extension, pt attempted ulnar/radial deviation but reported increased pain in left hand so OT terminated task. Pt then completed x20 reps each of the following using RUE: radial/ulnar deviation, elbow flexion/extension, and shoulder flexion. OT educated pt on the importance of exercises to prevent weakness and to prevent loss of movements. Pt verbalized understanding. OT then set up task of oral hygiene for pt. Post OT session, pt laying in bed, call light in reach and all needs met. Education OT Patient Education: Correct positioning, Energy conservation, Exercise program, Modified ADL techniques, Progress toward Goal/Update tx plan, Purpose of tx/functional activities Teaching Recipient: Patient Teaching Methods: Discussion Response to Teaching: Verbalize Understanding OT Pompom Maker Goals Pompom Maker Goals Time Frame: May 25, 2019 Eating (QC): 6 Oral Hygiene (QC): 6 Toileting Hygiene (QC): 2 Shower/Bathe Self (QC): 3 Upper Body Dressing (QC): 4 Lower Body Dressing (QC): 2 On/Off Footwear (QC): 5 Additional Goals: 1-Demonstrate ADL Tasks, 2-Verbalize Understanding, 3- ImproveStrength/Oscar 1=Demonstrate adherence to instructed precautions during ADL tasks. 2=Patient will verbalize/demonstrate understanding of assistive devices/modifications for ADL. 3=Patient will improve strength/tolerance for activity to enable patient to perform ADL's. OT Education/Plan Problem List/Assessment Assessment: Decreased Activ Tolerance, Decreased UE Strength, Impaired I ADL's, Impaired Self-Care Skills, Restricted Funct UE ROM Discharge Recommendations Plan/Recommendations: Continue POC Treatment Plan/Plan of Care Treatment,Training & Education: Yes Patient would benefit from OT for education, treatment and training to promote independence in ADL's, mobility, safety and/or upper extremity function for ADL's. Plan of Care: ADL Retraining, Concurrent Therapy, Functional Mobility, Orthotic Fitting/Training, UE Funct Exercise/Act, W/C Management Training Treatment Duration: May 25, 2019 Frequency: 5 times per week Estimated Hrs Per Day: .25 hour per day Agreement: Yes Rehab Potential: Good Time/GCodes Start Time: 08:53 Stop Time: 09:07 Total Time Billed (hr/min): 14 Billed Treatment Time 1, EX EMILIANO BOGGS OT May 23, 2019 09:42
--- NOTE | 2019-05-23 10:25 | Physical Therapy Daily Note ---
PT Daily Note-Current Subjective Patient in bed pre tx, agrees to PT but states he has already been out of bed and requests to just perform bed exercises at this time and then get out of bed this afternoon. Appearance Patient in bed post tx with nurse call, phone, tray, all needs met. Mental Status Patient Orientation: Normal For Age Attachments: Chest Tube, Lara Catheter Transfers SCALE: Activities may be completed with or without assistive devices. 1-Elxxxrtvvc-mxeglid completes the activity by him/herself with no assistance from a helper. 5-Set-up or Clean-up Assistance-helper sets up or cleans up; patient completes activity. [place] assists only prior to or following the activity. 4-Supervision or Touching Assistance-helper provides verbal cues and/or touching/steadying and/or contact guard assistance as patient completes activity. Assistance may be provided throughout the activity or intermittently. 3-Partial/Moderate Assistance-helper does LESS THAN HALF the effort. [place] lifts, holds or supports trunk or limbs, but provides less than half the effort. 2-Substantial/Maximal Assistance-helper does MORE THAN HALF the effort. [place] lifts or holds trunk or limbs and provides more than half the effort. 2-Tfbgvohyb-wxekcg does ALL the effort. Patient does none of the effort to complete the activity. Or, the assistance of 2 or more helpers is required for the patient to complete the activity. If activity was not attempted, code reason: 7-Patient Refused. 9-Not Applicable-not attempted and the patient did not perform the activity before the current illness, exacerbation or injury. 10-Not Attempted due to Environmental Limitations-(lack of equipment, weather restraints, etc.). 88-Not Attempted due to Medical Conditions or Safety Concerns. Weight Bearing Right Lower Extremity: Right Partial Weight Bearing Left Lower Extremity: Left Non Weight Bearing Exercises Supine Ex: Ankle pumps (toe flex/ext on the left side), Quad Set, Glut sets, Heel Slides, Short Arc Quads, Straight leg raise, Hip abd/add Supine Reps: 20 Treatments LE exercise Assessment Current Status: Fair Progress improving LE strength PT Short Term Goals Short Term Goals Time Frame: May 25, 2019 Roll Left & Right: 3 Sit to lyin Lying to sitting on side of be: 3 Does pt use a wc or scooter: No PT Residential Goals Residential Goals PT Residential Goals Time Frame: Jun 01, 2019 Roll Left & Right (QC): 4 Sit to Lying (QC): 4 Lying-Sitting on Side/Bed(QC): 4 Chair/Xze-vz-Kxblb Xfer(QC): 4 Toilet Transfer (QC): 4 PT Plan Problem List Problem List: Activity Tolerance, Functional Strength, Safety, Balance, Gait, Transfer, Bed Mobility, ROM Treatment/Plan Treatment Plan: Continue Plan of Care Treatment Plan: Bed Mobility, Education, Functional Activity Oscar, Functional Strength, Gait, Therapeutic Exercise, Transfers Treatment Duration: Jun 01, 2019 Frequency: 11 times per week Estimated Hrs Per Day: .5 hour per day Safety Risks/Education Patient Education: Reviewed Precautions, Correct Positioning, Safety Issues Teaching Recipient: Patient Teaching Methods: Demonstration, Discussion Response to Teaching: Reinforcement Needed Time/GCodes Time In: 0940 Time Out: 0950 Total Billed Treatment Time: 10 Total Billed Treatment 1 visit EX Lizbeth' CARMELITA NAVA PT May 23, 2019 10:25
--- NOTE | 2019-05-23 11:34 | Progress Note - Ortho ---
Progress Note Subjective Date of Exam 05/23/19 Chief Complaint POD#6 closed IM rodding right femoral shaft fracture and open reduction internal fixation medial malleolus fracture left ankle HPI/Events since last exam Mr. Oliva continues to improve. He is having less pain. He's been working on stretching out his hip with external rotation exercises. He continues nonweightbearing on the left and weightbearing on the right leg just for transfers. He continues with sling left arm Review of Systems Reviewed and no additions or changes Allergies: Coded Allergies: No Known Drug Allergies (Unverified , 03/14/17) Home Meds Discontinued Scripts Hydrocodone Bit/Acetaminophen (Hydrocodone/Acetaminophen 5/325mg Tablet) 1 Each Tablet, 1 TAB PO Q4H PRN, #20 TAB 0 Refills Prov:BEENA VAZQUEZ DO 03/16/17 Objective Exam Constitutional: [] HEENT: [] Neck: [] Cardiovascular: [] Respiratory: [] Gastrointestinal: [] Genitourinary: [] Skin: [] Back/Spine: [] Extremities: [Left upper extremitynormal sensation with good capillary refill. No pain left wrist with range of motion or palpation. Good radial pulse. Less swelling over the clavicle and there is some puckering of the skin from the distal aspect of the proximal fragment or comminuted fragment. Left lower extremity normal sensation to the toes with good capillary refill. Good motion in the knee and hip without pain Right lower extremitynormal sensation with good cap refill. 45-50 of external rotation without pain. No pain at the knee with good motion and minimal swelling.] Neurologic: [] Psychiatric: [] Hematologic/lymphatic/immunologic: [] Vital Signs Vital Signs Date Time Temp Pulse Resp B/P (MAP) Pulse Ox O2 Delivery O2 Flow Rate FiO2 05/23/19 08:20 95 Room Air 05/23/19 07:50 37.3 99 18 137/78 (97) 97 Room Air 05/23/19 04:12 36.2 05/23/19 04:12 36.2 05/23/19 03:21 36.2 93 20 125/75 (92) 96 Room Air 05/23/19 02:36 37.4 05/23/19 02:24 98 Room Air 05/23/19 00:45 37.4 1/2/20 00:45 37.4 05/23/19 00:15 37.4 05/23/19 00:15 37.4 05/23/19 00:14 37.4 05/23/19 00:13 36.8 88 20 130/78 (95) 98 Room Air 05/22/19 21:00 95 Room Air 1.00 05/22/19 20:50 37.4 05/22/19 20:50 37.4 05/22/19 20:25 95 Room Air 05/22/19 20:20 37.4 05/22/19 20:20 37.4 05/22/19 20:02 37.4 97 20 128/75 (92) 98 Room Air 05/22/19 16:07 36.7 95 20 136/81 (99) 98 Room Air 05/22/19 12:00 36.1 101 18 132/74 (93) 95 Room Air I & O 05/23/19 07:00 Intake Total 3980 ml Output Total 4770 ml Balance -790 ml Lab Results Laboratory Tests 05/23/19 05:25: White Blood Count 9.3, Red Blood Count 3.04L, Hemoglobin 9.1L, Hematocrit 28L, Mean Corpuscular Volume 91, Mean Corpuscular Hemoglobin 30, Mean Corpuscular Hemoglobin Concent 33, Red Cell Distribution Width 13.2, Platelet Count 365, Mean Platelet Volume 9.1, Neutrophils (%) (Auto) 67, Lymphocytes (%) (Auto) 13, Monocytes (%) (Auto) 16H, Eosinophils (%) (Auto) 3, Basophils (%) (Auto) 1, Neutrophils # (Auto) 6.3, Lymphocytes # (Auto) 1.2, Monocytes # (Auto) 1.5H, Eosinophils # (Auto) 0.3, Basophils # (Auto) 0.1, Sodium Level 137, Potassium Level 3.5L, Chloride Level 106, Carbon Dioxide Level 20L, Anion Gap 11, Blood Urea Nitrogen 8, Creatinine 0.63, Estimat Glomerular Filtration Rate > 60, BUN/Creatinine Ratio 13, Glucose Level 111H, Calcium Level 8.3L, Phosphorus Level 3.3, Magnesium Level 1.8 Microbiology 05/20/19 Gram Stain - Final, Resulted 05/20/19 Sputum Culture - Preliminary, Resulted Usual upper respiratory anibal Fungus Assessment and Plan Assessment Continued improvement postop Problem List Unchanged Plan Continue nonweightbearing on the left. Continue stretching the right hip. Weightbearing for transfers only. I talked to him about his clavicle fracture. He has got some puckering of the skin now that the swelling is down. He is probably going need surgery. I have talked him about this in the past and also begin today. Due to the amount of comminution this probably would be best taken care of by someone who has more experience with comminuted clavicle fracture barrios ch as a shoulder specialist or a trauma surgeon. He is any give it some thought and let me know. Final Diagonsis Status post IM rodding right femur Status post open reduction internal fixation medial malleolus left ankle Comminuted midshaft clavicle fracture left shoulder Comminuted scapular fracture Level of the visit: Level 3 Clinical Quality Measures DVT/VTE Risk/Contraindication: Risk Factor Score Per Nursin RFS Level Per Nursing on Admit: 4+=Very High ZANE GRECO MD May 23, 2019 11:34
--- NOTE | 2019-05-23 13:16 | NUR ---
[facility] Met with patient to discuss details specific to rehabilitation program. Patient agreeable to required therapy regimen, admission, and submission to his primary insurance provider, for prior authorization. CM/SS notified. Patient states that tomorrow morning, he will be notified of when fixation of his jaw will occur. Will continue to follow.
--- NOTE | 2019-05-23 15:53 | Physical Therapy Daily Note ---
PT Daily Note-Current Subjective Pt laying Supine in bed upon arrival. Pt on phone with GF who is being released from [facility]. Pain Numeric Pain Scale: 10-Worst Possible Pain Location: Right Location Body Site: Thigh Pain Description: Ache, Tightness Mental Status Patient Orientation: Person, Place, Time, Situation Transfers SCALE: Activities may be completed with or without assistive devices. 4-Chihhxivcd-nnoippz completes the activity by him/herself with no assistance from a helper. 5-Set-up or Clean-up Assistance-helper sets up or cleans up; patient completes activity. [place] assists only prior to or following the activity. 4-Supervision or Touching Assistance-helper provides verbal cues and/or touching/steadying and/or contact guard assistance as patient completes activity . Assistance may be provided throughout the activity or intermittently. 3-Partial/Moderate Assistance-helper does LESS THAN HALF the effort. [place] lifts, holds or supports trunk or limbs, but provides less than half the effort. 2-Substantial/Maximal Assistance-helper does MORE THAN HALF the effort. [place] lifts or holds trunk or limbs and provides more than half the effort. 8-Moifgvygn-wxkkzo does ALL the effort. Patient does none of the effort to complete the activity. Or, the assistance of 2 or more helpers is required for the patient to complete the activity. If activity was not attempted, code reason: 7-Patient Refused. 9-Not Applicable-not attempted and the patient did not perform the activity before the current illness, exacerbation or injury. 10-Not Attempted due to Environmental Limitations-(lack of equipment, weather restraints, etc.). 88-Not Attempted due to Medical Conditions or Safety Concerns. Weight Bearing Right Lower Extremity: Right Partial Weight Bearing Left Lower Extremity: Left Non Weight Bearing Exercises Supine Ex: Ankle pumps, Quad Set, Glut sets, Heel Slides, Straight leg raise, Hip abd/add Supine Reps: 20 Treatments Pt completes Supine Ex in bed with RB as needed. Pt resting at end of Rx with all needs met. Assessment Current Status: Good Progress Pt is not limited by pain during Rx. PT Short Term Goals Short Term Goals Time Frame: May 25, 2019 Roll Left & Right: 3 Sit to lyin Lying to sitting on side of be: 3 Does pt use a wc or scooter: No PT Wire Photo Operator News Goals Wire Photo Operator News Goals PT Wire Photo Operator News Goals Time Frame: Jun 01, 2019 Roll Left & Right (QC): 4 Sit to Lying (QC): 4 Lying-Sitting on Side/Bed(QC): 4 Chair/Key-oc-Ctvba Xfer(QC): 4 Toilet Transfer (QC): 4 PT Plan Problem List Problem List: Activity Tolerance, Functional Strength Treatment/Plan Treatment Plan: Continue Plan of Care Treatment Plan: Bed Mobility, Education, Functional Activity Oscar, Functional Strength, Gait, Therapeutic Exercise, Transfers Treatment Duration: Jun 01, 2019 Frequency: 11 times per week Estimated Hrs Per Day: .5 hour per day Safety Risks/Education Patient Education: Correct Positioning, Safety Issues Teaching Recipient: Patient Teaching Methods: Discussion Response to Teaching: Verbalize Understanding Time/GCodes Time In: 1505 Time Out: 1520 Total Billed Treatment Time: 15 Total Billed Treatment 1, EX (15m) ALISON FOWLER AUTOMATIC SHIRRING MACHINE OPERATOR May 23, 2019 15:53
[2019-05-24] MEDS: oxyCODONE/APAP 10/325MG (PERCOCET 10) TABLET PO PRN ×5 (00:12→20:18)
[2019-05-24] MEDS: HYDROmorphone 2 MG/ML VIAL (DILAUDID) IV PRN ×8 (00:12→20:18)
[2019-05-24] MEDS: RT-LEVALBUTEROL (XOPENEX) 1.25 MG/3 ML NEB NON-FORMULARY INH SCH ×3 (02:18→20:14)
[2019-05-24 04:32] VITALS: BP 134/72
[2019-05-24 04:56] LABS: BASOPHILS # (AUTO) 0.1 10^3/uL (0.0-0.1); BASOPHILS % (AUTO) 1 % (0-10); EOSINOPHILS # (AUTO) 0.3 10^3/uL (0.0-0.3); EOSINOPHILS % (AUTO) 4 % (0-10); HEMATOCRIT 32 % (40-54); HEMOGLOBIN 10.5 G/DL (13.3-17.7); LYMPHOCYTES # (AUTO) 1.3 X 10^3 (1.0-4.0); LYMPHOCYTES % (AUTO) 17 % (12-44); MEAN CORPUSCULAR HEMOGLOBIN 30 PG (25-34); MEAN CORPUSCULAR HGB CONC 33 G/DL (32-36); MEAN CORPUSCULAR VOLUME 91 FL (80-99); MEAN PLATELET VOLUME 9.2 FL (7.4-10.4); MONOCYTES # (AUTO) 1.2 X 10^3 (0.0-1.0); MONOCYTES % (AUTO) 16 % (0-12); NEUTROPHILS # (AUTO) 4.9 X 10^3 (1.8-7.8); NEUTROPHILS % (AUTO) 62 % (42-75); PLATELET COUNT 478 10^3/uL (130-400); RED CELL DISTRIBUTION WIDTH 13.5 % (10.0-14.5); WHITE BLOOD COUNT 7.8 10^3/uL (4.3-11.0)
[2019-05-24 05:18] LABS: BUN/CREATININE RATIO 14; CALCIUM 8.6 MG/DL (8.5-10.1); CARBON DIOXIDE 23 MMOL/L (21-32); CHLORIDE 106 MMOL/L (98-107); CREATININE SERUM 0.69 MG/DL (0.60-1.30); GFR ESTIMATED > 60; GLUCOSE 96 MG/DL (70-105); PHOSPHORUS 3.2 MG/DL (2.3-4.7); POTASSIUM 3.6 MMOL/L (3.6-5.0); SODIUM 139 MMOL/L (135-145)
--- NOTE | 2019-05-24 07:32 | Progress Note - Surgery ---
BHARGAVI SOLIS,MED STUDENT 05/24/19 0732: Subjective Date Seen by a Provider: May 24, 2019 Time Seen by a Provider: 06:39 Subjective/Events-last exam Patient seen and examined this morning. States he is having some leg pain this morning. His rib pain and shoulder pain has improved from yesterday though. He states that he is possibly getting surgery on his jaw today. He states he has also been passing a lot of gas the past few days, but has not had a bowel movement. Review of Systems General: No Chills, No Night Sweats, No Fatigue HEENT: No Head Aches, No Visual Changes, No Eye Pain, No Ear Pain Pulmonary: No Dyspnea, No Cough Cardiovascular: No: Chest Pain, Palpitations, Edema Gastrointestinal: Constipation; No: Nausea, Vomiting, Abdominal Pain Musculoskeletal: shoulder pain (left clavicle, with palpation), leg pain Neurological: No: Numbness, Confusion Objective Exam Vital Signs Date Time Temp Pulse Resp B/P (MAP) Pulse Ox O2 Delivery O2 Flow Rate FiO2 05/24/19 04:32 36.8 87 16 134/72 (92) 100 Room Air 05/24/19 02:18 97 Room Air 05/23/19 23:50 36.8 94 20 124/76 (92) 97 Room Air 05/23/19 20:41 36.5 92 20 121/71 (88) 96 Room Air 05/23/19 20:00 Room Air 05/23/19 16:36 97 Room Air 05/23/19 16:00 36.6 92 20 129/77 (94) 96 Room Air 05/23/19 11:16 36.9 88 18 120/74 (89) 96 Room Air 05/23/19 09:00 Room Air 05/23/19 08:20 95 Room Air 05/23/19 07:50 37.3 99 18 137/78 (97) 97 Room Air I & O 05/24/19 07:00 Intake Total 3050 ml Output Total 4000 ml Balance -950 ml Capillary Refill : Less Than 3 SecondsLess Than 3 Seconds General Appearance: No Apparent Distress, WD/WN HEENT: PERRL/EOMI, Moist Mucous Membranes; No Pharyngeal Erythema, No Scleral Icterus (L), No Scleral Icterus (R) Neck: Non Tender, Supple; No Lymphadenopathy (L), No Lymphadenopathy (R) Respiratory: Lungs Clear, No Accessory Muscle Use, No Respiratory Distress, Crackles (left lower lobe), Decreased Breath Sounds (Left lower lobe) Cardiovascular: Regular Rate, Rhythm, No Edema, No Murmur Peripheral Pulses: 2+ Radial Pulses (R), 2+ Radial Pulses (L) Gastrointestinal: normal bowel sounds, non tender, soft, no organomegaly Extremity: Other (Left leg in soft cast, left clavicle tender to palpation and freely mobile) Neurologic/Psychiatric: Alert, Oriented x3, Normal Mood/Affect Skin: Normal Color, Warm/Dry, Other (bruising to left clavicular area) Results Lab Laboratory Tests 05/24/19 04:27: White Blood Count 7.8, Red Blood Count 3.54L, Hemoglobin 10.5L, Hematocrit 32L, Mean Corpuscular Volume 91, Mean Corpuscular Hemoglobin 30, Mean Corpuscular Hemoglobin Concent 33, Red Cell Distribution Width 13.5, Platelet Count 478H, Mean Platelet Volume 9.2, Neutrophils (%) (Auto) 62, Lymphocytes (%) (Auto) 17, Monocytes (%) (Auto) 16H, Eosinophils (%) (Auto) 4, Basophils (%) (Auto) 1, Neutrophils # (Auto) 4.9, Lymphocytes # (Auto) 1.3, Monocytes # (Auto) 1.2H, Eosinophils # (Auto) 0.3, Basophils # (Auto) 0.1, Sodium Level 139, Potassium Level 3.6, Chloride Level 106, Carbon Dioxide Level 23, Anion Gap 10, Blood Urea Nitrogen 10, Creatinine 0.69, Estimat Glomerular Filtration Rate > 60, BUN/Creatinine Ratio 14, Glucose Level 96, Calcium Level 8.6, Phosphorus Level 3.2, Magnesium Level 2.0 Microbiology 05/20/19 Gram Stain - Final, Resulted 05/20/19 Sputum Culture - Preliminary, Resulted Usual upper respiratory anibal Fungus Clinical Quality Measures DVT/VTE Risk/Contraindication: Risk Factor Score Per Nursin RFS Level Per Nursing on Admit: 4+=Very High DYLAN IRWIN DO 05/24/19 6716: Subjective Time Seen by a Provider: 11:31 Subjective/Events-last exam Pt seen and examined, he denies SOB and only has minimal chest pain. Review of Systems General: No Chills, No Night Sweats Pulmonary: No Dyspnea, No Cough Cardiovascular: Chest Pain; No: Palpitations Gastrointestinal: Constipation; No: Nausea, Vomiting, Abdominal Pain Assessment/Plan Assessment/Plan Assessment/Plan Left Hemo/Pneumothorax - resolved, CXR looks much better today Right femur fx - s/p rodding Left ankle fx - cast I looked at CXR and the [facility], no air leak and no more drainage. CT d/c'd without any difficulty. Rehab is set up, pt will go soon. Supervisory-Addendum Brief Verification & Attestation Participated in pt care: history, MDM, physical Personally performed: exam, history, MDM Care discussed with: Medical Student Procedures: n/a Verification and Attestation of Medical Student E/M Service A medical student performed and documented this service in my presence. I reviewed and verified all information documented by the medical student and made modifications to such information, when appropriate. I personally performed the physical exam and medical decision making. Dylan Irwin, May 24, 2019,22:56 BHARGAVI SOLIS,MED STUDENT May 24, 2019 07:32 DYLAN IRWIN DO May 24, 2019 22:56
[2019-05-24 07:40] VITALS: BP 125/71
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
--- NOTE | 2019-05-24 09:36 | Occupational Ther Daily Note ---
OT Current Status-Daily Note Subjective Pt laying in bed at start of session, stating he was pretty sore but he slept well last night. He is hopeful that his children may visit later this afternoon. He did not verbalize pain rating this tx. Mental Status/Objective Attachments: Lara Catheter ADL-Treatment Therapy Code Descriptions/Definitions Functional [place] Measure: 0=Not Assessed/NA 4=Minimal Assistance 1=Total Assistance 5=Supervision or Setup 2=Maximal Assistance 6=Modified [place] 3=Moderate Assistance 7=Complete IndependenceSCALE: Activities may be completed with or without assistive devices. 7-Dihdvaepzf-azcbayb completes the activity by him/herself with no assistance from a helper. 5-Set-up or Clean-up Assistance-helper sets up or cleans up; patient completes activity. [place] assists only prior to or following the activity. 4-Supervision or Touching Assistance-helper provides verbal cues and/or touching/steadying and/or contact guard assistance as patient completes activity. Assistance may be provided throughout the activity or intermittently. 3-Partial/Moderate Assistance-helper does LESS THAN HALF the effort. [place] lifts, holds or supports trunk or limbs, but provides less than half the effort. 2-Substantial/Maximal Assistance-helper does MORE THAN HALF the effort. [place] lifts or holds trunk or limbs and provides more than half the effort. 4-Ijrszhbde-eorakk does ALL the effort. Patient does none of the effort to complete the activity. Or, the assistance of 2 or more helpers is required for the patient to complete the activity. If activity was not attempted, code reason: 7-Patient Refused. 9-Not Applicable-not attempted and the patient did not perform the activity bef ore the current illness, exacerbation or injury. 10-Not Attempted due to Environmental Limitations-(lack of equipment, weather r estraints, etc.). 88-Not Attempted due to Medical Conditions or Safety Concerns. Oral Hygiene (QC): 5 (Pt able to brush teeth with set up and clean up of task.) Other Treatment Pt agreed to OT tx with focus on ADLs, he stated he needed to brush his teeth. OT gathered supplies for oral hygiene and set up task for pt on tray table. Pt then able to complete task, with OT clean up. Pt verbalized he was hopeful that his children may visit today. Pt declined needing to change his gown and other ADLs at this time. Pt indicated he thought his dressings needed changed, nursing notified. Post OT session, pt in bed, call light in reach and all needs met, nursing present. Education OT Patient Education: Correct positioning, Energy conservation, Modified ADL techniques, Progress toward Goal/Update tx plan, Purpose of tx/functional activities Teaching Recipient: Patient Teaching Methods: Discussion Response to Teaching: Verbalize Understanding OT Chain Person Goals Chain Person Goals Time Frame: May 25, 2019 Eating (QC): 6 Oral Hygiene (QC): 6 Toileting Hygiene (QC): 2 Shower/Bathe Self (QC): 3 Upper Body Dressing (QC): 4 Lower Body Dressing (QC): 2 On/Off Footwear (QC): 5 Additional Goals: 1-Demonstrate ADL Tasks, 2-Verbalize Understanding, 3- ImproveStrength/Oscar 1=Demonstrate adherence to instructed precautions during ADL tasks. 2=Patient will verbalize/demonstrate understanding of assistive devices/modifications for ADL. 3=Patient will improve strength/tolerance for activity to enable patient to perform ADL's. OT Education/Plan Problem List/Assessment Assessment: Decreased Activ Tolerance, Impaired I ADL's, Impaired Self-Care Skills, Restricted Funct UE ROM Discharge Recommendations Plan/Recommendations: Continue POC Treatment Plan/Plan of Care Patient would benefit from OT for education, treatment and training to promote independence in ADL's, mobility, safety and/or upper extremity function for ADL's. Plan of Care: ADL Retraining, Concurrent Therapy, Functional Mobility, Orthotic Fitting/Training, UE Funct Exercise/Act, W/C Management Training Treatment Duration: May 25, 2019 Frequency: 5 times per week Estimated Hrs Per Day: .25 hour per day Agreement: Yes Rehab Potential: Good Time/GCodes Start Time: 08:09 Stop Time: 08:20 Total Time Billed (hr/min): 11 Billed Treatment Time 1, ADL EMILIANO BOGGS OT May 24, 2019 09:36
--- NOTE | 2019-05-24 10:28 | Progress Note - Ortho ---
Progress Note Subjective Date of Exam 05/24/19 Chief Complaint POD#7 closed IM rodding right femur and open reduction internal fixation medial malleolus left ankle HPI/Events since last exam Mr. Oliva is up sitting in the chair without any problems. His only pain is his left shoulder and ribs Review of Systems Reviewed and no additions or changes Allergies: Coded Allergies: No Known Drug Allergies (Unverified , 03/14/17) Home Meds Discontinued Scripts Hydrocodone Bit/Acetaminophen (Hydrocodone/Acetaminophen 5/325mg Tablet) 1 Each Tablet, 1 TAB PO Q4H PRN, #20 TAB 0 Refills Prov:BEENA VAZQUEZ DO 03/16/17 Objective Exam Constitutional: [] HEENT: [] Neck: [] Cardiovascular: [] Respiratory: [] Gastrointestinal: [] Genitourinary: [] Skin: [] Back/Spine: [] Extremities: [Pain left clavicle and scapula. Normal sensation with good cap refill left upper extremity Left lower extremity cast in good condition. He moved his toes has normal sensation and good capillary refill Right lower extremity that is still little limited external rotation right hip. Good motion of the knee. Normal sensation with good cap refill and good pulses right lower extremity] Neurologic: [] Psychiatric: [] Hematologic/lymphatic/immunologic: [] Vital Signs Vital Signs Date Time Temp Pulse Resp B/P (MAP) Pulse Ox O2 Delivery O2 Flow Rate FiO2 05/24/19 07:40 37.1 112 18 125/71 (89) 100 Room Air 05/24/19 04:32 36.8 87 16 134/72 (92) 100 Room Air 05/24/19 02:18 97 Room Air 05/23/19 23:50 36.8 94 20 124/76 (92) 97 Room Air 05/23/19 20:41 36.5 92 20 121/71 (88) 96 Room Air 05/23/19 20:00 Room Air 05/23/19 16:36 97 Room Air 05/23/19 16:00 36.6 92 20 129/77 (94) 96 Room Air 05/23/19 11:16 36.9 88 18 120/74 (89) 96 Room Air I & O 05/24/19 07:00 Intake Total 3050 ml Output Total 4000 ml Balance -950 ml Lab Results Laboratory Tests 05/24/19 04:27: White Blood Count 7.8, Red Blood Count 3.54L, Hemoglobin 10.5L, Hematocrit 32L, Mean Corpuscular Volume 91, Mean Corpuscular Hemoglobin 30, Mean Corpuscular Hemoglobin Concent 33, Red Cell Distribution Width 13.5, Platelet Count 478H, Mean Platelet Volume 9.2, Neutrophils (%) (Auto) 62, Lymphocytes (%) (Auto) 17, Monocytes (%) (Auto) 16H, Eosinophils (%) (Auto) 4, Basophils (%) (Auto) 1, Neutrophils # (Auto) 4.9, Lymphocytes # (Auto) 1.3, Monocytes # (Auto) 1.2H, Eosinophils # (Auto) 0.3, Basophils # (Auto) 0.1, Sodium Level 139, Potassium Level 3.6, Chloride Level 106, Carbon Dioxide Level 23, Anion Gap 10, Blood Urea Nitrogen 10, Creatinine 0.69, Estimat Glomerular Filtration Rate > 60, BUN/Creatinine Ratio 14, Glucose Level 96, Calcium Level 8.6, Phosphorus Level 3.2, Magnesium Level 2.0 Microbiology 05/20/19 Gram Stain - Final, Resulted 05/20/19 Sputum Culture - Preliminary, Resulted Usual upper respiratory anibal Fungus Assessment and Plan Assessment Doing well postop Problem List Unchanged Plan Continue present treatment Final Diagonsis Status post IM rodding right femoral shaft fracture Status post open reduction internal fixation medial malleolus left ankle Comminuted fracture left clavicle and left scapular body Level of the visit: Level 3 Clinical Quality Measures DVT/VTE Risk/Contraindication: Risk Factor Score Per Nursin RFS Level Per Nursing on Admit: 4+=Very High ZANE GRECO MD May 24, 2019 10:28
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
--- NOTE | 2019-05-24 10:53 | Physical Therapy Daily Note ---
PT Daily Note-Current Subjective Patient reports compliance with exercise program and performs 2-3/day independently. Mental Status Patient Orientation: Normal For Age Attachments: Drains Transfers SCALE: Activities may be completed with or without assistive devices. 7-Kcwjowwtvi-pddpvhd completes the activity by him/herself with no assistance from a helper. 5-Set-up or Clean-up Assistance-helper sets up or cleans up; patient completes activity. [place] assists only prior to or following the activity. 4-Supervision or Touching Assistance-helper provides verbal cues and/or touching/steadying and/or contact guard assistance as patient completes activity. Assistance may be provided throughout the activity or intermittently. 3-Partial/Moderate Assistance-helper does LESS THAN HALF the effort. [place] lifts, holds or supports trunk or limbs, but provides less than half the effort. 2-Substantial/Maximal Assistance-helper does MORE THAN HALF the effort. [place] lifts or holds trunk or limbs and provides more than half the effort. 2-Ctrnviaoi-fzmeks does ALL the effort. Patient does none of the effort to complete the activity. Or, the assistance of 2 or more helpers is required for the patient to complete the activity. If activity was not attempted, code reason: 7-Patient Refused. 9-Not Applicable-not attempted and the patient did not perform the activity before the current illness, exacerbation or injury. 10-Not Attempted due to Environmental Limitations-(lack of equipment, weather restraints, etc.). 88-Not Attempted due to Medical Conditions or Safety Concerns. Weight Bearing Right Lower Extremity: Right Partial Weight Bearing Left Lower Extremity: Left Non Weight Bearing Exercises Supine Ex: Ankle pumps, Quad Set, Heel Slides, Straight leg raise, Hip abd/add Supine Reps: 15 Assessment Patient demonstrated ER stretch right LE to improve ROM. Patient is highly motivated with progress and per his report, may have chest tube removed on this date. PT Short Term Goals Short Term Goals Time Frame: May 25, 2019 Roll Left & Right: 3 Sit to lyin Lying to sitting on side of be: 3 Does pt use a wc or scooter: No PT Recordings Librarian Goals Recordings Librarian Goals PT Retirement Goals Time Frame: Jun 01, 2019 Roll Left & Right (QC): 4 Sit to Lying (QC): 4 Lying-Sitting on Side/Bed(QC): 4 Chair/Tfx-ju-Zszwa Xfer(QC): 4 Toilet Transfer (QC): 4 PT Plan Treatment/Plan Treatment Plan: Continue Plan of Care Treatment Plan: Bed Mobility, Education, Functional Activity Oscar, Functional Strength, Gait, Therapeutic Exercise, Transfers Treatment Duration: Jun 01, 2019 Frequency: 11 times per week Estimated Hrs Per Day: .5 hour per day Time/GCodes Time In: 1028 Time Out: 1038 Total Billed Treatment Time: 10 Total Billed Treatment 1 visit EX 10 min MIRIAN SPAULDING PT May 24, 2019 10:53
[2019-05-24] MEDS: PANTOPRAZOLE 40 MG (PROTONIX) TAB PO SCH (10:56)
--- NOTE | 2019-05-24 13:00 | NUR ---
DR. DIAZ HERE. LEFT CHEST TUBE DC'D BY DR. ENCINAS. WELL. BRUISING CONT. TO LEFT SHOULDER AND CHEST AREA. UP IN CHAIR. LEFT LOWER LEG CAST IN PLACE MOVES LEFT TOES WELL. LEFT TOES PINK AND WARM. LEFT FINGERS MOVES WELL.
--- NOTE | 2019-05-24 14:30 | Physical Therapy Daily Note ---
PT Daily Note-Current Subjective Patient agrees to PT. Declined w/c activity. Chest tube has been pulled. Mental Status Patient Orientation: Normal For Age Attachments: Lara Catheter Transfers SCALE: Activities may be completed with or without assistive devices. 0-Iuatmbnxoz-kzrouds completes the activity by him/herself with no assistance from a helper. 5-Set-up or Clean-up Assistance-helper sets up or cleans up; patient completes activity. [place] assists only prior to or following the activity. 4-Supervision or Touching Assistance-helper provides verbal cues and/or touching/steadying and/or contact guard assistance as patient completes activity. Assistance may be provided throughout the activity or intermittently. 3-Partial/Moderate Assistance-helper does LESS THAN HALF the effort. [place] lifts, holds or supports trunk or limbs, but provides less than half the effort. 2-Substantial/Maximal Assistance-helper does MORE THAN HALF the effort. [place] lifts or holds trunk or limbs and provides more than half the effort. 2-Zhehottpq-vzcrvn does ALL the effort. Patient does none of the effort to complete the activity. Or, the assistance of 2 or more helpers is required for the patient to complete the activity. If activity was not attempted, code reason: 7-Patient Refused. 9-Not Applicable-not attempted and the patient did not perform the activity before the current illness, exacerbation or injury. 10-Not Attempted due to Environmental Limitations-(lack of equipment, weather restraints, etc.). 88-Not Attempted due to Medical Conditions or Safety Concerns. Weight Bearing Right Lower Extremity: Right Partial Weight Bearing Left Lower Extremity: Left Non Weight Bearing Exercises Supine Ex: LE Protocol, Ankle pumps, Quad Set Supine Reps: 15 (ER stretching) Assessment Patient declined w/c mobility on this date. Patient also declined sit to stand to relieve gluteal pressure. PT to increase activity as tolerated/allowed by patient. PT Short Term Goals Short Term Goals Time Frame: May 25, 2019 Roll Left & Right: 3 Sit to lyin Lying to sitting on side of be: 3 Does pt use a wc or scooter: No PT Dicer Operator Goals Dicer Operator Goals PT Dicer Operator Goals Time Frame: Jun 01, 2019 Roll Left & Right (QC): 4 Sit to Lying (QC): 4 Lying-Sitting on Side/Bed(QC): 4 Chair/Hgh-si-Otuct Xfer(QC): 4 Toilet Transfer (QC): 4 PT Plan Treatment/Plan Treatment Plan: Continue Plan of Care Treatment Plan: Bed Mobility, Education, Functional Activity Oscar, Functional Strength, Gait, Therapeutic Exercise, Transfers Treatment Duration: Jun 01, 2019 Frequency: 11 times per week Estimated Hrs Per Day: .5 hour per day Time/GCodes Time In: 1344 Time Out: 1353 Total Billed Treatment Time: 9 Total Billed Treatment 1 visit EX 9 min MIRIAN SPAULDING PT May 24, 2019 14:30
[2019-05-24] MEDS: LORazepam 1 MG (ATIVAN) TAB PO PRN ×2 (14:40→21:59)
[2019-05-24 15:40] VITALS: BP 120/73
[2019-05-24] MEDS: DOCUSATE SODIUM 100 MG (COLACE) CAP PO SCH ×2 (16:16→21:42)
[2019-05-24 19:30] VITALS: BP 121/73
--- NOTE | 2019-05-24 19:40 | NUR ---
DR DOWNEY CONTACTED THIS RN ON PHONE THAT HE WOULD BE IN TOMORROW, 05/25/19, TO SEE PT.
[2019-05-24] MEDS: POLYETHYLENE GLYCOL 17 GM (MIRALAX) PACK PO SCH (21:42)
[2019-05-25 00:46] VITALS: BP 137/83
[2019-05-25] MEDS: oxyCODONE/APAP 10/325MG (PERCOCET 10) TABLET PO PRN ×5 (00:46→21:20)
[2019-05-25] MEDS: HYDROmorphone 2 MG/ML VIAL (DILAUDID) IV PRN ×8 (01:27→20:07)
[2019-05-25] MEDS: RT-LEVALBUTEROL (XOPENEX) 1.25 MG/3 ML NEB NON-FORMULARY INH SCH ×3 (03:14→16:52)
[2019-05-25 04:35] VITALS: BP 128/83
[2019-05-25 05:47] LABS: BASOPHILS # (AUTO) 0.1 10^3/uL (0.0-0.1); BASOPHILS % (AUTO) 1 % (0-10); EOSINOPHILS # (AUTO) 0.4 10^3/uL (0.0-0.3); EOSINOPHILS % (AUTO) 4 % (0-10); HEMATOCRIT 32 % (40-54); HEMOGLOBIN 10.4 G/DL (13.3-17.7); LYMPHOCYTES # (AUTO) 1.5 X 10^3 (1.0-4.0); LYMPHOCYTES % (AUTO) 16 % (12-44); MEAN CORPUSCULAR HEMOGLOBIN 30 PG (25-34); MEAN CORPUSCULAR HGB CONC 33 G/DL (32-36); MEAN CORPUSCULAR VOLUME 91 FL (80-99); MEAN PLATELET VOLUME 8.9 FL (7.4-10.4); MONOCYTES # (AUTO) 1.7 X 10^3 (0.0-1.0); MONOCYTES % (AUTO) 18 % (0-12); NEUTROPHILS # (AUTO) 5.8 X 10^3 (1.8-7.8); NEUTROPHILS % (AUTO) 62 % (42-75); PLATELET COUNT 587 10^3/uL (130-400); RED CELL DISTRIBUTION WIDTH 13.5 % (10.0-14.5); WHITE BLOOD COUNT 9.4 10^3/uL (4.3-11.0)
[2019-05-25 06:05] LABS: BUN/CREATININE RATIO 18; CALCIUM 8.9 MG/DL (8.5-10.1); CARBON DIOXIDE 21 MMOL/L (21-32); CHLORIDE 105 MMOL/L (98-107); CREATININE SERUM 0.67 MG/DL (0.60-1.30); GFR ESTIMATED > 60; GLUCOSE 98 MG/DL (70-105); PHOSPHORUS 3.4 MG/DL (2.3-4.7); POTASSIUM 4.2 MMOL/L (3.6-5.0); SODIUM 137 MMOL/L (135-145)
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
[2019-05-25 07:56] VITALS: BP 120/81
[2019-05-25] MEDS: DOCUSATE SODIUM 100 MG (COLACE) CAP PO SCH ×2 (08:25→20:06)
[2019-05-25] MEDS: PANTOPRAZOLE 40 MG (PROTONIX) TAB PO SCH (08:25)
--- NOTE | 2019-05-25 11:20 | Physical Therapy Daily Note ---
PT Daily Note-Current Subjective Pt reports he is compliant with his self exercise routine. He has just returned to bed from the bedside chair and prefers not to get back up. Mental Status Patient Orientation: Normal For Age Transfers SCALE: Activities may be completed with or without assistive devices. 1-Emcrwosdcu-zkafmhn completes the activity by him/herself with no assistance from a helper. 5-Set-up or Clean-up Assistance-helper sets up or cleans up; patient completes activity. [place] assists only prior to or following the activity. 4-Supervision or Touching Assistance-helper provides verbal cues and/or touching/steadying and/or contact guard assistance as patient completes activity. Assistance may be provided throughout the activity or intermittently. 3-Partial/Moderate Assistance-helper does LESS THAN HALF the effort. [place] lifts, holds or supports trunk or limbs, but provides less than half the effort. 2-Substantial/Maximal Assistance-helper does MORE THAN HALF the effort. [place] lifts or holds trunk or limbs and provides more than half the effort. 8-Cmwvlmigh-azsbwy does ALL the effort. Patient does none of the effort to complete the activity. Or, the assistance of 2 or more helpers is required for the patient to complete the activity. If activity was not attempted, code reason: 7-Patient Refused. 9-Not Applicable-not attempted and the patient did not perform the activity before the current illness, exacerbation or injury. 10-Not Attempted due to Environmental Limitations-(lack of equipment, weather restraints, etc.). 88-Not Attempted due to Medical Conditions or Safety Concerns. Weight Bearing Right Lower Extremity: Right Partial Weight Bearing Left Lower Extremity: Left Non Weight Bearing Exercises Educated on seated LAQ and ankle pumps to add to HEP. Had patient demonstrate SLR and QS exercise with instruction to perform at least 3 times per day. Assessment Pt improving with mobility. Mobility remains limited by wt bearing restrictions. PT Short Term Goals Short Term Goals Time Frame: May 25, 2019 Roll Left & Right: 3 Sit to lyin Lying to sitting on side of be: 3 Does pt use a wc or scooter: No PT Continuous Improvement Coach Goals Nursing Home Goals PT Nursing Home Goals Time Frame: Jun 01, 2019 Roll Left & Right (QC): 4 Sit to Lying (QC): 4 Lying-Sitting on Side/Bed(QC): 4 Chair/Ubk-qv-Gdpnq Xfer(QC): 4 Toilet Transfer (QC): 4 PT Plan Treatment/Plan Treatment Plan: Continue Plan of Care Treatment Plan: Bed Mobility, Education, Functional Activity Oscar, Functional Strength, Gait, Therapeutic Exercise, Transfers Treatment Duration: Jun 01, 2019 Frequency: 11 times per week Estimated Hrs Per Day: .5 hour per day Time/GCodes Time In: 1020 Time Out: 1030 Total Billed Treatment Time: 10 Total Billed Treatment visit, education 10min ALYSE EDEN PT May 25, 2019 11:20
[2019-05-25 11:30] VITALS: BP 119/78
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
[2019-05-25 16:00] VITALS: BP 122/71
[2019-05-25] MEDS: LORazepam 1 MG (ATIVAN) TAB PO PRN (21:20)
[2019-05-25] MEDS: POLYETHYLENE GLYCOL 17 GM (MIRALAX) PACK PO SCH (21:20)
[2019-05-25 23:43] VITALS: BP 139/72
[2019-05-26] MEDS: RT-LEVALBUTEROL (XOPENEX) 1.25 MG/3 ML NEB NON-FORMULARY INH SCH ×5 (00:04→19:00)
[2019-05-26 00:35] VITALS: BP 132/80
[2019-05-26] MEDS: oxyCODONE/APAP 10/325MG (PERCOCET 10) TABLET PO PRN ×5 (01:14→22:05)
[2019-05-26] MEDS: HYDROmorphone 2 MG/ML VIAL (DILAUDID) IV PRN ×7 (01:14→16:45)
[2019-05-26 04:25] VITALS: BP 123/79
[2019-05-26 05:31] LABS: BASOPHILS # (AUTO) 0.1 10^3/uL (0.0-0.1); BASOPHILS % (AUTO) 1 % (0-10); EOSINOPHILS # (AUTO) 0.4 10^3/uL (0.0-0.3); EOSINOPHILS % (AUTO) 4 % (0-10); HEMATOCRIT 32 % (40-54); HEMOGLOBIN 10.3 G/DL (13.3-17.7); LYMPHOCYTES # (AUTO) 1.7 X 10^3 (1.0-4.0); LYMPHOCYTES % (AUTO) 19 % (12-44); MEAN CORPUSCULAR HEMOGLOBIN 30 PG (25-34); MEAN CORPUSCULAR HGB CONC 33 G/DL (32-36); MEAN CORPUSCULAR VOLUME 91 FL (80-99); MEAN PLATELET VOLUME 8.7 FL (7.4-10.4); MONOCYTES # (AUTO) 1.5 X 10^3 (0.0-1.0); MONOCYTES % (AUTO) 17 % (0-12); NEUTROPHILS # (AUTO) 5.2 X 10^3 (1.8-7.8); NEUTROPHILS % (AUTO) 59 % (42-75); PLATELET COUNT 635 10^3/uL (130-400); RED CELL DISTRIBUTION WIDTH 13.3 % (10.0-14.5); WHITE BLOOD COUNT 8.9 10^3/uL (4.3-11.0)
[2019-05-26 05:48] LABS: BUN/CREATININE RATIO 21; CALCIUM 8.9 MG/DL (8.5-10.1); CARBON DIOXIDE 23 MMOL/L (21-32); CHLORIDE 104 MMOL/L (98-107); CREATININE SERUM 0.72 MG/DL (0.60-1.30); GFR ESTIMATED > 60; GLUCOSE 103 MG/DL (70-105); PHOSPHORUS 3.4 MG/DL (2.3-4.7); POTASSIUM 4.1 MMOL/L (3.6-5.0); SODIUM 137 MMOL/L (135-145)
[2019-05-26] MEDS: DOCUSATE SODIUM 100 MG (COLACE) CAP PO SCH ×2 (08:10→20:54)
[2019-05-26] MEDS: PANTOPRAZOLE 40 MG (PROTONIX) TAB PO SCH (08:11)
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
[2019-05-26 08:35] VITALS: BP 110/78
--- NOTE | 2019-05-26 10:07 | NUR ---
patient was concerned about pain medication administration. kerline johnson verbalized to this RN that it was okay to give both dilaudid IV and percocet tablets within 30min-1hr of each other for patient satisfaction
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
[2019-05-26 12:00] VITALS: BP 119/78
[2019-05-26 15:47] VITALS: BP 133/74
--- NOTE | 2019-05-26 18:26 | NUR ---
THIS RN ASKED PATIENT IF HE WOULD LIKE A NEW GAUZE WRAP APPLIED TO HIS ELBOW. PATIENT REFUSED AT THIS TIME
[2019-05-26 19:44] VITALS: BP 150/83
[2019-05-26] MEDS: POLYETHYLENE GLYCOL 17 GM (MIRALAX) PACK PO SCH (20:54)
[2019-05-26] MEDS: LORazepam 1 MG (ATIVAN) TAB PO PRN (20:54)
[2019-05-27] VITALS (13 sets, daily range): BP systolic 115–149; BP diastolic 59–86
[2019-05-27] MEDS: HYDROmorphone 2 MG/ML VIAL (DILAUDID) IV PRN ×9 (00:28→23:17)
[2019-05-27] MEDS: RT-LEVALBUTEROL (XOPENEX) 1.25 MG/3 ML NEB NON-FORMULARY INH SCH ×4 (03:33→21:46)
[2019-05-27 06:06] LABS: BASOPHILS # (AUTO) 0.1 10^3/uL (0.0-0.1); BASOPHILS % (AUTO) 1 % (0-10); EOSINOPHILS # (AUTO) 0.4 10^3/uL (0.0-0.3); EOSINOPHILS % (AUTO) 4 % (0-10); HEMATOCRIT 33 % (40-54); HEMOGLOBIN 10.9 G/DL (13.3-17.7); LYMPHOCYTES # (AUTO) 1.7 X 10^3 (1.0-4.0); LYMPHOCYTES % (AUTO) 21 % (12-44); MEAN CORPUSCULAR HEMOGLOBIN 30 PG (25-34); MEAN CORPUSCULAR HGB CONC 33 G/DL (32-36); MEAN CORPUSCULAR VOLUME 91 FL (80-99); MEAN PLATELET VOLUME 8.7 FL (7.4-10.4); MONOCYTES # (AUTO) 1.3 X 10^3 (0.0-1.0); MONOCYTES % (AUTO) 16 % (0-12); NEUTROPHILS # (AUTO) 4.8 X 10^3 (1.8-7.8); NEUTROPHILS % (AUTO) 58 % (42-75); PLATELET COUNT 703 10^3/uL (130-400); RED CELL DISTRIBUTION WIDTH 13.7 % (10.0-14.5); WHITE BLOOD COUNT 8.4 10^3/uL (4.3-11.0)
[2019-05-27 06:34] LABS: BUN/CREATININE RATIO 19; CALCIUM 9.2 MG/DL (8.5-10.1); CARBON DIOXIDE 23 MMOL/L (21-32); CHLORIDE 103 MMOL/L (98-107); CREATININE SERUM 0.74 MG/DL (0.60-1.30); GFR ESTIMATED > 60; GLUCOSE 98 MG/DL (70-105); MAGNESIUM 2.1 MG/DL (1.6-2.4); PHOSPHORUS 3.6 MG/DL (2.3-4.7); POTASSIUM 4.2 MMOL/L (3.6-5.0); SODIUM 137 MMOL/L (135-145)
--- NOTE | 2019-05-27 07:00 | NUR ---
pt is npo for oral surgery
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
[2019-05-27] MEDS: PANTOPRAZOLE 40 MG (PROTONIX) TAB PO SCH (07:59)
--- NOTE | 2019-05-27 09:50 | Occupational Ther Daily Note ---
OT Current Status-Daily Note Subjective Pt sitting upright in recliner at start of session, stating he is thirsty but he is currently NPO. Pt reports he should be having his jaw wired sometime today. ADL-Treatment Therapy Code Descriptions/Definitions Functional [place] Measure: 0=Not Assessed/NA 4=Minimal Assistance 1=Total Assistance 5=Supervision or Setup 2=Maximal Assistance 6=Modified [place] 3=Moderate Assistance 7=Complete IndependenceSCALE: Activities may be completed with or without assistive devices. 1-Fndegsgcra-btqszmj completes the activity by him/herself with no assistance from a helper. 5-Set-up or Clean-up Assistance-helper sets up or cleans up; patient completes activity. [place] assists only prior to or following the activity. 4-Supervision or Touching Assistance-helper provides verbal cues and/or touching/steadying and/or contact guard assistance as patient completes activity. Assistance may be provided throughout the activity or intermittently. 3-Partial/Moderate Assistance-helper does LESS THAN HALF the effort. [place] lifts, holds or supports trunk or limbs, but provides less than half the effort. 2-Substantial/Maximal Assistance-helper does MORE THAN HALF the effort. [place] lifts or holds trunk or limbs and provides more than half the effort. 5-Iduucvsov-zaxkww does ALL the effort. Patient does none of the effort to complete the activity. Or, the assistance of 2 or more helpers is required for the patient to complete the activity. If activity was not attempted, code reason: 7-Patient Refused. 9-Not Applicable-not attempted and the patient did not perform the activity bef ore the current illness, exacerbation or injury. 10-Not Attempted due to Environmental Limitations-(lack of equipment, weather r estraints, etc.). 88-Not Attempted due to Medical Conditions or Safety Concerns. Other Treatment Pt reports he has already completed oral hygiene this AM. He agrees to completing UE exercises in order to increase UE strength and functional endurance. Pt completes x20 reps each of the following exercises: BUE wrist flexion/extension & ulnar/radial deviation, RUE elbow flexion/extension & shoulder flexion. Pt states he feels good to stretch his right arm to full range. Post OT session, pt seated upright in recliner, call light in reach and all needs met. Education OT Patient Education: Correct positioning, Energy conservation, Exercise program, Progress toward Goal/Update tx plan, Purpose of tx/functional activities Teaching Recipient: Patient Teaching Methods: Discussion Response to Teaching: Verbalize Understanding OT Taxation Consultant Goals Skilled Nursing Goals Time Frame: May 25, 2019 Eating (QC): 6 Oral Hygiene (QC): 6 Toileting Hygiene (QC): 2 Shower/Bathe Self (QC): 3 Upper Body Dressing (QC): 4 Lower Body Dressing (QC): 2 On/Off Footwear (QC): 5 Additional Goals: 1-Demonstrate ADL Tasks, 2-Verbalize Understanding, 3- ImproveStrength/Oscar 1=Demonstrate adherence to instructed precautions during ADL tasks. 2=Patient will verbalize/demonstrate understanding of assistive devices/modifications for ADL. 3=Patient will improve strength/tolerance for activity to enable patient to perform ADL's. OT Education/Plan Problem List/Assessment Assessment: Decreased UE Strength, Impaired I ADL's, Impaired Self-Care Skills Discharge Recommendations Plan/Recommendations: Continue POC Treatment Plan/Plan of Care Treatment,Training & Education: Yes Patient would benefit from OT for education, treatment and training to promote independence in ADL's, mobility, safety and/or upper extremity function for ADL's. Plan of Care: ADL Retraining, Concurrent Therapy, Functional Mobility, Orthotic Fitting/Training, UE Funct Exercise/Act, W/C Management Training Treatment Duration: May 25, 2019 Frequency: 5 times per week Estimated Hrs Per Day: .25 hour per day Agreement: Yes Rehab Potential: Good Time/GCodes Start Time: 08:35 Stop Time: 08:45 Total Time Billed (hr/min): 10 Billed Treatment Time 1, EX EMILIANO BOGGS OT May 27, 2019 09:50
--- NOTE | 2019-05-27 10:43 | Progress Note - Ortho ---
Progress Note Subjective Date of Exam 05/27/19 Chief Complaint POD#10 was IM rodding right femur and open reduction internal fixation medial malleolus left ankle HPI/Events since last exam Gal is doing fairly well. Continues with pain left clavicle. Right femur and left ankle minimal pain. He continues unabated to chair as tolerated using a right leg for transfers Review of Systems Reviewed and no additions or changes Allergies: Coded Allergies: No Known Drug Allergies (Unverified , 03/14/17) Home Meds No Active Prescriptions or Reported Meds Objective Exam Constitutional: [] HEENT: [] Neck: [] Cardiovascular: [] Respiratory: [] Gastrointestinal: [] Genitourinary: [] Skin: [] Back/Spine: [] Extremities: [Pain left clavicle. Neurovascularly intact left upper extremity Left ankle cast in good condition. Moving toes with normal sensation and good capillary refill. No pain at the left hip Right hip good motion without pain. Good motion right knee. His external rotation is approximately 40 and is left is 50. His internal rotation is almost equal.] Neurologic: [] Psychiatric: [] Hematologic/lymphatic/immunologic: [] Vital Signs Vital Signs Date Time Temp Pulse Resp B/P (MAP) Pulse Ox O2 Delivery O2 Flow Rate FiO2 05/27/19 09:56 94 Room Air 05/27/19 08:00 36.4 90 18 121/80 (94) 95 Room Air 05/27/19 08:00 95 Room Air 1.00 05/27/19 03:25 37.0 77 18 119/77 (91) 96 Room Air 05/27/19 00:30 36.4 83 16 121/76 (91) 100 Room Air 05/26/19 20:00 Room Air 05/26/19 19:44 36.4 102 20 150/83 (105) 97 Room Air 05/26/19 19:00 95 Room Air 05/26/19 15:47 37.0 98 20 133/74 (93) 98 Room Air 05/26/19 15:27 95 Room Air 05/26/19 12:00 36.8 80 20 119/78 (92) 96 Room Air I & O 05/27/19 07:00 Intake Total 4316 ml Output Total 2000 ml Balance 2316 ml Lab Results Laboratory Tests 05/27/19 05:48: White Blood Count 8.4, Red Blood Count 3.65L, Hemoglobin 10.9L, Hematocrit 33L, Mean Corpuscular Volume 91, Mean Corpuscular Hemoglobin 30, Mean Corpuscular Hemoglobin Concent 33, Red Cell Distribution Width 13.7, Platelet Count 703H, Mean Platelet Volume 8.7, Neutrophils (%) (Auto) 58, Lymphocytes (%) (Auto) 21, Monocytes (%) (Auto) 16H, Eosinophils (%) (Auto) 4, Basophils (%) (Auto) 1, Neutrophils # (Auto) 4.8, Lymphocytes # (Auto) 1.7, Monocytes # (Auto) 1.3H, Eosinophils # (Auto) 0.4H, Basophils # (Auto) 0.1, Sodium Level 137, Potassium Level 4.2, Chloride Level 103, Carbon Dioxide Level 23, Anion Gap 11, Blood Urea Nitrogen 14, Creatinine 0.74, Estimat Glomerular Filtration Rate > 60, BUN/Creatinine Ratio 19, Glucose Level 98, Calcium Level 9.2, Phosphorus Level 3 .6, Magnesium Level 2.1 Microbiology 05/20/19 Gram Stain - Final, Resulted 05/20/19 Sputum Culture - Preliminary, Resulted Usual upper respiratory anibal Fungus Assessment and Plan Assessment Doing well 10 days postop. Problem List Unchanged Plan I discussed the above with Gal. Yet I think most likely with his age, comminution and activity level that he'll probably want his clavicle fixed. Again I would recommend this being done by trauma surgery or somebody with experience in comminuted clavicle fractures which I don't have. He is waiting to hear from the maxillofacial surgeon about his jaw. As far as his rotation of the right lower extremity think it's pretty close to the other side and his lack of external rotation may just be due to tightness of the hip not the actual rotation at the fracture site. Think it's pretty close to the other side. Continue transfers bed to chair as tolerated Final Diagonsis Status post closed I'm rodding right femur Status post open reduction internal fixation left medial malleolus Level of the visit: Level 3 Clinical Quality Measures DVT/VTE Risk/Contraindication: Risk Factor Score Per Nursin RFS Level Per Nursing on Admit: 4+=Very High ZANE GRECO MD May 27, 2019 10:43
--- NOTE | 2019-05-27 11:51 | Physical Therapy Daily Note ---
PT Daily Note-Current Subjective Patient in bed pre tx, agrees to PT, has no complaints of pain at rest. Agrees to get into chair and perform LE exercises. Appearance Patient in recliner post tx with nurse call, phone, tray, all needs met. Mental Status Patient Orientation: Normal For Age Transfers SCALE: Activities may be completed with or without assistive devices. 9-Ierjaeoxwx-hpawxno completes the activity by him/herself with no assistance from a helper. 5-Set-up or Clean-up Assistance-helper sets up or cleans up; patient completes activity. [place] assists only prior to or following the activity. 4-Supervision or Touching Assistance-helper provides verbal cues and/or touching/steadying and/or contact guard assistance as patient completes activity. Assistance may be provided throughout the activity or intermittently. 3-Partial/Moderate Assistance-helper does LESS THAN HALF the effort. [place] lifts, holds or supports trunk or limbs, but provides less than half the effort. 2-Substantial/Maximal Assistance-helper does MORE THAN HALF the effort. [place] lifts or holds trunk or limbs and provides more than half the effort. 4-Ysqlnfzmk-vgprcb does ALL the effort. Patient does none of the effort to complete the activity. Or, the assistance of 2 or more helpers is required for the patient to complete the activity. If activity was not attempted, code reason: 7-Patient Refused. 9-Not Applicable-not attempted and the patient did not perform the activity before the current illness, exacerbation or injury. 10-Not Attempted due to Environmental Limitations-(lack of equipment, weather restraints, etc.). 88-Not Attempted due to Medical Conditions or Safety Concerns. Roll Left & Right (QC): 6 Lying to Sitting/Side of Bed(Q: 6 Chair/Iys-zm-Jjues Xfer(QC): 6 Patient is able to actually maneuver the recliner into position on his right side and perform a transfer into it without assist using only his right arm and leg. He is then able to wheel the recliner to wherever he needs it. Weight Bearing Right Lower Extremity: Right Partial Weight Bearing Left Lower Extremity: Left Non Weight Bearing Exercises Seated Therapy Exercises: Ankle pumps (toe flex/ext on the left side), Long arc quads, Hip flexion, Hip abd/add Seated Reps: 20 Treatments bed mobility and transfers, LE exercise Assessment Current Status: Fair Progress improved transfers PT Short Term Goals Short Term Goals Time Frame: May 25, 2019 Roll Left & Right: 3 Sit to lyin Lying to sitting on side of be: 3 Does pt use a wc or scooter: No PT Care Home Goals Care Home Goals PT Care Home Goals Time Frame: Jun 01, 2019 Roll Left & Right (QC): 4 Sit to Lying (QC): 4 Lying-Sitting on Side/Bed(QC): 4 Chair/Esu-li-Ywyop Xfer(QC): 4 Toilet Transfer (QC): 4 PT Plan Problem List Problem List: Activity Tolerance, Functional Strength, Safety, Balance, Gait, Transfer, ROM Treatment/Plan Treatment Plan: Continue Plan of Care Treatment Plan: Bed Mobility, Education, Functional Activity Oscar, Functional Strength, Gait, Therapeutic Exercise, Transfers Treatment Duration: Jun 01, 2019 Frequency: 11 times per week Estimated Hrs Per Day: .5 hour per day Safety Risks/Education Patient Education: Transfer Techniques, Reviewed Precautions, Correct Po sitioning, Safety Issues Teaching Recipient: Patient Teaching Methods: Demonstration, Discussion Response to Teaching: Reinforcement Needed Time/GCodes Time In: 1130 Time Out: 1141 Total Billed Treatment Time: 11 Total Billed Treatment 1 visit FA CARMELITA HOSKINS PT May 27, 2019 11:51
[2019-05-27] MEDS ORDERED: LIDOCAINE/EPI 2% 1:100,00 (XYLOCAINE) 20 ML VIAL ONE (13:45)
[2019-05-27] MEDS ORDERED: ROPIVACAINE 5MG/ML 30ML VIAL ONE (13:45)
--- NOTE | 2019-05-27 13:50 | Physical Therapy Daily Note ---
PT Daily Note-Current Subjective Patient in recliner pre tx, agrees to PT, has no complaints of pain at rest. Patient is anxious to get the surgery done on his jaw, he has been NPO all day. Appearance Patient in recliner post tx with nurse call, phone, tray, all needs met. Mental Status Patient Orientation: Normal For Age Transfers SCALE: Activities may be completed with or without assistive devices. 1-Sbeicsoapk-nsfkedg completes the activity by him/herself with no assistance from a helper. 5-Set-up or Clean-up Assistance-helper sets up or cleans up; patient completes activity. [place] assists only prior to or following the activity. 4-Supervision or Touching Assistance-helper provides verbal cues and/or touching/steadying and/or contact guard assistance as patient completes activity. Assistance may be provided throughout the activity or intermittently. 3-Partial/Moderate Assistance-helper does LESS THAN HALF the effort. [place] lifts, holds or supports trunk or limbs, but provides less than half the effort. 2-Substantial/Maximal Assistance-helper does MORE THAN HALF the effort. [place] lifts or holds trunk or limbs and provides more than half the effort. 4-Xmnqddxjf-jeqela does ALL the effort. Patient does none of the effort to complete the activity. Or, the assistance of 2 or more helpers is required for the patient to complete the activity. If activity was not attempted, code reason: 7-Patient Refused. 9-Not Applicable-not attempted and the patient did not perform the activity before the current illness, exacerbation or injury. 10-Not Attempted due to Environmental Limitations-(lack of equipment, weather restraints, etc.). 88-Not Attempted due to Medical Conditions or Safety Concerns. Weight Bearing Right Lower Extremity: Right Partial Weight Bearing Left Lower Extremity: Left Non Weight Bearing Exercises Seated Therapy Exercises: Ankle pumps (toe flex/ext on the left side), Long arc quads, Hip flexion, Hip abd/add Seated Reps: 20 Treatments LE AROM Assessment Current Status: Fair Progress patient states his left leg has less pain overall PT Short Term Goals Short Term Goals Time Frame: May 25, 2019 Roll Left & Right: 3 Sit to lyin Lying to sitting on side of be: 3 Does pt use a wc or scooter: No PT Longterm Goals Longterm Goals PT Data Entry Associate Goals Time Frame: Jun 01, 2019 Roll Left & Right (QC): 4 Sit to Lying (QC): 4 Lying-Sitting on Side/Bed(QC): 4 Chair/Hpw-gi-Mgcpl Xfer(QC): 4 Toilet Transfer (QC): 4 PT Plan Problem List Problem List: Activity Tolerance, Functional Strength, Safety, Balance, Gait, Transfer, Bed Mobility, ROM Treatment/Plan Treatment Plan: Continue Plan of Care Treatment Plan: Bed Mobility, Education, Functional Activity Oscar, Functional Strength, Gait, Therapeutic Exercise, Transfers Treatment Duration: Jun 01, 2019 Frequency: 11 times per week Estimated Hrs Per Day: .5 hour per day Safety Risks/Education Patient Education: Reviewed Precautions, Correct Positioning, Safety Issues Teaching Recipient: Patient Teaching Methods: Demonstration, Discussion Response to Teaching: Reinforcement Needed Time/GCodes Time In: 1336 Time Out: 1346 Total Billed Treatment Time: 10 Total Billed Treatment 1 visit EX CARMELITA CASIANO PT May 27, 2019 13:49
--- NOTE | 2019-05-27 14:13 | NUR ---
[facility] PT notified this worker that patient is completing tasks to the best of his ability, with the weight restrictions that are in place. Patient notified of information stated above. It was recommended to the patient that he be re-evaluated for the ARU, once his weight restrictions are removed, that way he can utilize the program to it's entirety. Patient agreeable to this recommendation. SW notified and present for this interaction. Patient requested placement at a local SNF, to fulfill his weight restrictions, with the intention of returning to the ARU. SW to follow-up on this request. According to Dr. Driver, patient to remain NWB LLE for two weeks, with a transition to PWB, as well as, RLE to progress to full weight bearing in three weeks. Therefore, patient to be re-assessed for the ARU in three weeks. Will continue to follow.
--- NOTE | 2019-05-27 14:15 | NUR ---
"RD ASSESSMENT PMHx: no significant PMH; multiple fractures PT INTERACTION: Pt was awake and pleasant during nutrition assessment. Pt states current appetite is good and has been for some time. Note avg PO intake >75% x3d, per chart review. P states following a regular diet at home, and currently has some issues chewing d/t fractured jaw. Note pt getting procedure today to repair jaw. Pt states no recent issues with n/v at this time. Pt states some recent issues with constipation and that his last BM was 9 days ago. Note pt currently on bowel regimen of colace BID, per chart review. Pt states recent 17# wt loss since admit. Note 16# wt loss x2w, per chart review. ABNORMAL NUTRITION-RELATED LAB VALUES All Labs WNL Est. kcal needs: 9159-5435 kcal | 25-30 kcal/kg Est. Pro needs: 92-115 g Pro | 1.2-1.5 g Pro/kg PES STATEMENT: Inadequate oral intake (NI-2.1) related to NPO status as evidenced by pt interview INTERVENTION: Note pt is currently NPO. Advance diet as medically able and as tolerated. Will continue to follow and reassess as pt needs and status change. MONITOR/EVALUATE: PO Intake; Plan of Care; Hydration Status; Weight Status; Lab Values Whitney Burton, MS, RD, LD"
[2019-05-27] MEDS ORDERED: fentaNYL INJECTION 100 MCG/2 ML AMP ONE (16:23)
[2019-05-27] MEDS ORDERED: MIDAZOLAM 2 MG/2 ML (VERSED) VIAL ONE (16:23)
[2019-05-27] MEDS ORDERED: PHENYLEPHRINE 0.5% NASAL SPR (NEO-SYNEPHRINE) REG ONE (16:42)
--- NOTE | 2019-05-27 16:46 | NUR ---
PATIENT TAKEN DOWN FOR SURGERY
[2019-05-27] MEDS ORDERED: ceFAZolin INJECTION 2,000 MG ONE (16:55)
[2019-05-27] MEDS ORDERED: DEXAMETHASONE 10 MG/ML (DECADRON) 1 ML VIAL ONE (17:49)
[2019-05-27] MEDS ORDERED: proPOfol 200 MG/20 ML (DIPRIVAN) VIAL IV ONE (17:49)
[2019-05-27] MEDS ORDERED: GLYCOPYRROLATE 0.2 MG/ML (ROBINUL) 2 ML VIAL ONE (17:49)
[2019-05-27] MEDS ORDERED: NEOSTIGMINE 3 MG/3 ML VIAL ONE (17:49)
[2019-05-27] MEDS ORDERED: LIDOCAINE PF 2% 5 ML (XYLOCAINE) VIAL ONE (17:49)
[2019-05-27] MEDS ORDERED: ONDANSETRON 4 MG/2 ML (SDV) Z0FRAN ONE (17:49)
[2019-05-27] MEDS ORDERED: MEPERIDINE (DEMEROL) INJ 50 MG/ML ONE (18:08)
[2019-05-27] MEDS ORDERED: SEVOFLURANE (ULTANE) 15 ML INHAL SOLN ONE (18:32)
[2019-05-27] MEDS ORDERED: ROCURONIUM 50 MG/5 ML (ZEMURON) VIAL IV ONE (18:33)
[2019-05-27] MEDS: POLYETHYLENE GLYCOL 17 GM (MIRALAX) PACK PO SCH (21:00)
[2019-05-27] MEDS: DOCUSATE SODIUM 100 MG (COLACE) CAP PO SCH (21:00)
[2019-05-27] MEDS: LACTATED RINGERS 1,000 ML IV SCH (21:15)
[2019-05-27] MEDS ORDERED: LACTATED RINGERS 1,000 ML IV ONE (21:28)
[2019-05-28] MEDS: HYDROmorphone 2 MG/ML VIAL (DILAUDID) IV PRN ×4 (01:44→10:38)
[2019-05-28] MEDS: RT-LEVALBUTEROL (XOPENEX) 1.25 MG/3 ML NEB NON-FORMULARY INH SCH ×3 (02:19→14:39)
[2019-05-28 04:08] VITALS: BP 120/61
[2019-05-28 08:00] VITALS: BP 130/78
[2019-05-28] MEDS: PANTOPRAZOLE 40 MG (PROTONIX) TAB PO SCH (08:07)
[2019-05-28] MEDS: DOCUSATE SODIUM 100 MG (COLACE) CAP PO SCH ×2 (08:07→19:41)
--- NOTE | 2019-05-28 08:08 | Progress Note - Surgery ---
BHARGAVI SOLIS,MED STUDENT 05/28/19 0808: Subjective Date Seen by a Provider: May 28, 2019 Time Seen by a Provider: 07:36 Subjective/Events-last exam Patient seen and examined this morning. He had surgery on his jaw yesterday, and states his jaw is hurting this morning. He states that he is also having left sided rib pain and intermittent cramping in his legs. Still no BM, but passing gas. Denies shortness of breath or abdominal pain. Review of Systems General: No Chills, No Fatigue HEENT: No Head Aches, No Visual Changes Pulmonary: No Dyspnea, No Cough Cardiovascular: No: Chest Pain, Palpitations, Edema Gastrointestinal: Constipation; No: Nausea, Vomiting, Abdominal Pain Musculoskeletal: other (jaw pain), shoulder pain, leg pain Neurological: No: Numbness Objective Exam Vital Signs Date Time Temp Pulse Resp B/P (MAP) Pulse Ox O2 Delivery O2 Flow Rate FiO2 05/28/19 04:08 37.0 79 18 120/61 (80) 96 Room Air 05/28/19 02:19 94 Room Air 05/27/19 23:24 37.2 81 18 120/76 (91) 97 Room Air 05/27/19 21:46 95 Room Air 05/27/19 20:18 37.1 95 20 129/69 (89) 94 Room Air 05/27/19 20:00 Room Air 05/27/19 19:15 Room Air 05/27/19 19:10 37.1 18 130/86 (101) 94 Room Air 05/27/19 19:05 Room Air 05/27/19 19:00 16 120/82 (95) 94 Room Air 05/27/19 18:50 OxyMask 2 05/27/19 18:50 16 130/59 (82) 96 Room Air 05/27/19 18:40 14 127/76 (93) 100 OxyMask 2 05/27/19 18:35 OxyMask 4 05/27/19 18:30 16 127/82 (97) 99 OxyMask 4 05/27/19 18:23 37.2 20 130/86 (101) 98 OxyMask 8 05/27/19 18:23 OxyMask 8 05/27/19 16:34 98 Room Air 05/27/19 16:00 36.6 94 20 115/77 (90) 99 Room Air 1/6/20 11:53 37.2 99 18 149/75 (99) 98 Room Air 05/27/19 09:56 94 Room Air I & O 05/28/19 07:00 Intake Total 3990 ml Output Total 2575 ml Balance 1415 ml Capillary Refill : Less Than 3 SecondsLess Than 3 Seconds General Appearance: No Apparent Distress, WD/WN HEENT: PERRL/EOMI, Moist Mucous Membranes; No Pharyngeal Erythema, No Scleral Icterus (L), No Scleral Icterus (R); Other (jaw wired shut) Neck: Non Tender, Supple; No Lymphadenopathy (L), No Lymphadenopathy (R) Respiratory: Lungs Clear, No Accessory Muscle Use, No Respiratory Distress Cardiovascular: Regular Rate, Rhythm, No Edema, No Murmur Peripheral Pulses: 2+ Radial Pulses (R), 2+ Radial Pulses (L) Gastrointestinal: normal bowel sounds, non tender, soft; No distended Extremity: Normal Capillary Refill, No Pedal Edema, Other (Left leg cast in place) Neurologic/Psychiatric: Alert, Oriented x3, Normal Mood/Affect Skin: Normal Color, Warm/Dry, Ecchymosis Results Lab Microbiology 05/20/19 Gram Stain - Final, Complete 05/20/19 Sputum Culture - Final, Complete Usual upper respiratory anibal Fungus Assessment/Plan Assessment/Plan Assessment/Plan Assessment: -Left hemo/pneumothorax, resolved -Left clavicle fracture -Mandibular fracture and dislocation Plan: Patient had mandibular surgery yesterday and has jaw wired shut now. He is also supposed to have clavicle repaired Monday. Can go to rehab as soon as they have a bed available for him Clinical Quality Measures DVT/VTE Risk/Contraindication: Risk Factor Score Per Nursin RFS Level Per Nursing on Admit: 4+=Very High DYLAN IRWIN DO 05/28/19 1205: Subjective Time Seen by a Provider: 11:50 Subjective/Events-last exam Pt seen and examined, states jaw hurts a little and he is hungry. Review of Systems General: No Chills HEENT: No Head Aches, No Visual Changes Pulmonary: No Dyspnea, No Cough Cardiovascular: No: Chest Pain, Palpitations Gastrointestinal: No: Nausea, Vomiting, Abdominal Pain Objective Exam General Appearance: No Apparent Distress, WD/WN Respiratory: Lungs Clear, Normal Breath Sounds, No Accessory Muscle Use Cardiovascular: Regular Rate, Rhythm, No Murmur Gastrointestinal: normal bowel sounds, non tender, soft Assessment/Plan Assessment/Plan Assessment/Plan Left hemo/pneumothorax - resolved Left Clavicle fx - planned to go to [place] tomorrow Mandibular fx - wired shut Mutliple rib fx Pt told to continue IS, will add Ensure shakes to his diet. Still waiting on possible SNF placement until he is ready for rehab (must be at least partial weight bearing in both legs). Pt is in good spirits. Will stop IV pain meds. Supervisory-Addendum Brief Verification & Attestation Participated in pt care: history, MDM, physical Personally performed: exam, history, MDM Care discussed with: Medical Student Procedures: n/a Verification and Attestation of Medical Student E/M Service A medical student performed and documented this service in my presence. I reviewed and verified all information documented by the medical student and made modifications to such information, when appropriate. I personally performed the physical exam and medical decision making. Dylan Irwin, May 28, 2019,12:05 BHARGAVI SOLIS,MED STUDENT May 28, 2019 08:08 DYLAN IRWIN DO May 28, 2019 12:05
--- NOTE | 2019-05-28 08:08 | NUR ---
PATIENT REFUSED PO MEDICATIONS DUE TO HIS RECENT JAW WIRING
--- NOTE | 2019-05-28 09:29 | Occupational Ther Daily Note ---
OT Current Status-Daily Note Subjective Pt sitting upright in recliner at start of session, given option of ADLs or arm exercises and pt chose exercises. Pt states he had not received his liquid diet tray yet this AM, aide notified. Pt said his surgery yesterday went well, but he is a little sore today. He said he is having surgery on his clavicle this Monday. ADL-Treatment Therapy Code Descriptions/Definitions Functional [place] Measure: 0=Not Assessed/NA 4=Minimal Assistance 1=Total Assistance 5=Supervision or Setup 2=Maximal Assistance 6=Modified [place] 3=Moderate Assistance 7=Complete IndependenceSCALE: Activities may be completed with or without assistive devices. 7-Ranpfdymzz-qaizmfx completes the activity by him/herself with no assistance from a helper. 5-Set-up or Clean-up Assistance-helper sets up or cleans up; patient completes activity. [place] assists only prior to or following the activity. 4-Supervision or Touching Assistance-helper provides verbal cues and/or to uching/steadying and/or contact guard assistance as patient completes activity. Assistance may be provided throughout the activity or intermittently. 3-Partial/Moderate Assistance-helper does LESS THAN HALF the effort. [place] lifts, holds or supports trunk or limbs, but provides less than half the effort. 2-Substantial/Maximal Assistance-helper does MORE THAN HALF the effort. [place] lifts or holds trunk or limbs and provides more than half the effort. 8-Jslhousng-uvkizd does ALL the effort. Patient does none of the effort to complete the activity. Or, the assistance of 2 or more helpers is required for the patient to complete the activity. If activity was not attempted, code reason: 7-Patient Refused. 9-Not Applicable-not attempted and the patient did not perform the activity before the current illness, exacerbation or injury. 10-Not Attempted due to Environmental Limitations-(lack of equipment, weather restraints, etc.). 88-Not Attempted due to Medical Conditions or Safety Concerns. Other Treatment Pt completed arm exercises in order to increase UE strength and endurance, he completed x20 reps each of the following: BUE wrist flexion/extension, RUE ulnar/radial deviation (pt attempted with left but reported increased pain), RUE elbow flexion/extension and shoulder flexion/extension. Pt reports he has been completing exercises throughout the day. Post OT session, pt seated upright in recliner, call light in reach and all needs met. Education OT Patient Education: Correct positioning, Energy conservation, Exercise program, Progress toward Goal/Update tx plan, Purpose of tx/functional activities Teaching Recipient: Patient Teaching Methods: Demonstration Response to Teaching: Return Demonstration OT Director Of Application Development Goals Director Of Application Development Goals Time Frame: May 25, 2019 Eating (QC): 6 Oral Hygiene (QC): 6 Toileting Hygiene (QC): 2 Shower/Bathe Self (QC): 3 Upper Body Dressing (QC): 4 Lower Body Dressing (QC): 2 On/Off Footwear (QC): 5 Additional Goals: 1-Demonstrate ADL Tasks, 2-Verbalize Understanding, 3- ImproveStrength/Oscar 1=Demonstrate adherence to instructed precautions during ADL tasks. 2=Patient will verbalize/demonstrate understanding of assistive devices/modifications for ADL. 3=Patient will improve strength/tolerance for activity to enable patient to perform ADL's. OT Education/Plan Problem List/Assessment Assessment: Decreased Activ Tolerance, Decreased UE Strength, Impaired I ADL's, Impaired Self-Care Skills, Restricted Funct UE ROM Discharge Recommendations Plan/Recommendations: Continue POC Treatment Plan/Plan of Care Patient would benefit from OT for education, treatment and training to promote independence in ADL's, mobility, safety and/or upper extremity function for ADL's. Plan of Care: ADL Retraining, Concurrent Therapy, Functional Mobility, Orthotic Fitting/Training, UE Funct Exercise/Act, W/C Management Training Treatment Duration: May 25, 2019 Frequency: 5 times per week Estimated Hrs Per Day: .25 hour per day Agreement: Yes Rehab Potential: Good Time/GCodes Start Time: 09:13 Stop Time: 09:22 Total Time Billed (hr/min): 9 Billed Treatment Time 1, EX EMILIANO BOGGS OT May 28, 2019 09:29
--- NOTE | 2019-05-28 09:46 | Physical Therapy Daily Note ---
PT Daily Note-Current Subjective Patient in recliner pre tx, agrees to PT, voices no complaints of pain during tx. Patient had jaw surgery and now has his jaw wired shut. Appearance Patient in recliner post tx with nurse call, phone, tray, all needs met. Mental Status Patient Orientation: Normal For Age Transfers SCALE: Activities may be completed with or without assistive devices. 5-Dqgehgrwrs-lckonuz completes the activity by him/herself with no assistance from a helper. 5-Set-up or Clean-up Assistance-helper sets up or cleans up; patient completes activity. [place] assists only prior to or following the activity. 4-Supervision or Touching Assistance-helper provides verbal cues and/or touching/steadying and/or contact guard assistance as patient completes activity. Assistance may be provided throughout the activity or intermittently. 3-Partial/Moderate Assistance-helper does LESS THAN HALF the effort. [place] lifts, holds or supports trunk or limbs, but provides less than half the effort. 2-Substantial/Maximal Assistance-helper does MORE THAN HALF the effort. [place] lifts or holds trunk or limbs and provides more than half the effort. 6-Zopvzsryi-enapfw does ALL the effort. Patient does none of the effort to complete the activity. Or, the assistance of 2 or more helpers is required for the patient to complete the activity. If activity was not attempted, code reason: 7-Patient Refused. 9-Not Applicable-not attempted and the patient did not perform the activity before the current illness, exacerbation or injury. 10-Not Attempted due to Environmental Limitations-(lack of equipment, weather restraints, etc.). 88-Not Attempted due to Medical Conditions or Safety Concerns. Patient is performing bed mobility and transfers independently, gets into recliner and back to bed by himself. Weight Bearing Right Lower Extremity: Right Partial Weight Bearing Left Lower Extremity: Left Non Weight Bearing Exercises Supine Ex: Quad Set Supine Reps: 20 (performs in recliner with legs extended) Seated Therapy Exercises: Ankle pumps (toe flex/ext on left side), Long arc quads, Hip flexion, Hip abd/add Seated Reps: 20 Treatments LE exercise Assessment Current Status: Fair Progress good performance with ex, no increase in pain PT Short Term Goals Short Term Goals Time Frame: May 25, 2019 Roll Left & Right: 3 Sit to lyin Lying to sitting on side of be: 3 Does pt use a wc or scooter: No PT Snf Goals Vice President Of Communications Goals PT Vice President Of Communications Goals Time Frame: Jun 01, 2019 Roll Left & Right (QC): 4 Sit to Lying (QC): 4 Lying-Sitting on Side/Bed(QC): 4 Chair/Gli-ag-Snfrv Xfer(QC): 4 Toilet Transfer (QC): 4 PT Plan Problem List Problem List: Activity Tolerance, Functional Strength, Safety, Balance, Gait, Transfer, ROM Treatment/Plan Treatment Plan: Continue Plan of Care Treatment Plan: Bed Mobility, Education, Functional Activity Oscar, Functional Strength, Gait, Therapeutic Exercise, Transfers Treatment Duration: Jun 01, 2019 Frequency: 11 times per week Estimated Hrs Per Day: .5 hour per day Safety Risks/Education Patient Education: Correct Positioning, Safety Issues Teaching Recipient: Patient Teaching Methods: Demonstration, Discussion Response to Teaching: Reinforcement Needed Time/GCodes Time In: 0930 Time Out: 0940 Total Billed Treatment Time: 10 Total Billed Treatment 1 visit EX CARMELITA CASIANO PT May 28, 2019 09:46
[2019-05-28 12:00] VITALS: BP 124/81
--- NOTE | 2019-05-28 13:38 | Anesthesia-General Post-Op ---
General Patient Condition Mental Status/LOC: Same as Preop Cardiovascular: Satisfactory Nausea/Vomiting: Absent Respiratory: Satisfactory Pain: Controlled Complications: Absent Post Op Complications Complications None Follow Up Care/Instructions Patient Instructions None needed. Anesthesia/Patient Condition Patient Condition Patient is doing well, no complaints, stable vital signs, no apparent adverse anesthesia problems. TOBY RYAN DO May 28, 2019 13:38
[2019-05-28] MEDS: LACTATED RINGERS 1,000 ML IV SCH (14:11)
--- NOTE | 2019-05-28 14:27 | Progress Note - Ortho ---
Progress Note Subjective Date of Exam 05/28/19 Chief Complaint POD#11 closed IM rodding right femoral shaft fracture and open reduction internal fixation medial malleolus fracture left ankle HPI/Events since last exam Gal is having some increased pain due to his jaw surgery. Other than that is doing well. Dr. Cuevas did see him and he scheduled for open reduction internal fixation of his left clavicle fracture. This will be done approximately noon tomorrow Review of Systems Reviewed and no additions or changes Allergies: Coded Allergies: No Known Drug Allergies (Unverified , 03/14/17) Home Meds No Active Prescriptions or Reported Meds Objective Exam Constitutional: [] HEENT: [] Neck: [] Cardiovascular: [] Respiratory: [] Gastrointestinal: [] Genitourinary: [] Skin: [] Back/Spine: [] Extremities: [] Pain over her left clavicle. Neurovascularly intact left upper extremity Minimal pain with motion right hip and knee Cast intact to left lower extremity Neurologic: [] Psychiatric: [] Hematologic/lymphatic/immunologic: [] Vital Signs Vital Signs Date Time Temp Pulse Resp B/P (MAP) Pulse Ox O2 Delivery O2 Flow Rate FiO2 05/28/19 12:00 36.5 72 16 124/81 (95) 99 Room Air 05/28/19 08:00 36.6 85 16 130/78 (95) 96 Room Air 05/28/19 08:00 Room Air 05/28/19 04:08 37.0 79 18 120/61 (80) 96 Room Air 05/28/19 02:19 94 Room Air 05/27/19 23:24 37.2 81 18 120/76 (91) 97 Room Air 05/27/19 21:46 95 Room Air 05/27/19 20:18 37.1 95 20 129/69 (89) 94 Room Air 05/27/19 20:00 Room Air 05/27/19 19:15 Room Air 05/27/19 19:10 37.1 18 130/86 (101) 94 Room Air 05/27/19 19:05 Room Air 05/27/19 19:00 16 120/82 (95) 94 Room Air 05/27/19 18:50 OxyMask 2 05/27/19 18:50 16 130/59 (82) 96 Room Air 05/27/19 18:40 14 127/76 (93) 100 OxyMask 2 05/27/19 18:35 OxyMask 4 05/27/19 18:30 16 127/82 (97) 99 OxyMask 4 05/27/19 18:23 37.2 20 130/86 (101) 98 OxyMask 8 05/27/19 18:23 OxyMask 8 05/27/19 16:34 98 Room Air 05/27/19 16:00 36.6 94 20 115/77 (90) 99 Room Air I & O 05/28/19 07:00 Intake Total 3990 ml Output Total 2575 ml Balance 1415 ml Lab Results Microbiology 05/20/19 Gram Stain - Final, Complete 05/20/19 Sputum Culture - Final, Complete Usual upper respiratory anibal Fungus Assessment and Plan Assessment Doing well 11 days postop having increased pain due to jaw surgery yesterday Problem List Unchanged Plan For surgery tomorrow. Reduction internal fixation left clavicle fracture Plan on cast change on Monday with staple removal from all incisions Will resume his hydromorphone IV which was discontinued yesterday after his jaw surgery. He is unable to take oral meds. This was the only IV pain medication that helped Final Diagonsis Status post IM rodding right femur Status post open reduction internal fixation medial malleolus left ankle Level of the visit: Level 3 Clinical Quality Measures DVT/VTE Risk/Contraindication: Risk Factor Score Per Nursin RFS Level Per Nursing on Admit: 4+=Very High ZANE GRECO MD May 28, 2019 14:27
[2019-05-28] MEDS ORDERED: HYDROmorphone 2 MG/ML VIAL (DILAUDID) IV PRN (14:30)
--- NOTE | 2019-05-28 14:44 | NUR ---
this RN spoke to Dr Irwin regarding patients pain medication. verbalized to this RN that patient needs to be off IV medication and would benefit from oral/liquid medication at this time. Dr verbalized to this RN to have [facility] pharmacist contact him to they can further discuss liquid pain medications
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
--- NOTE | 2019-05-28 14:56 | Physical Therapy Progress Note ---
Therapy Progress Note Patient refuses treatment this afternoon. Patient states there has been a mixup with his pain meds and he has not had any and has 10/10 pain in his jaw and would like to skip therapy this afternoon due to that. Patient states he will perform the LE exercises on his own later. Patient is familiar with the exercises and should be able to do this. CARMELITA NAVA PT May 28, 2019 14:56
[2019-05-28] MEDS ORDERED: RT-LEVALBUTEROL (XOPENEX) 1.25 MG/3 ML NEB NON-FORMULARY INH PRN (15:00)
[2019-05-28] MEDS: morphine (ROXINOL) 10 MG/0.5 ML oral conc 0.5 ML PO PRN ×3 (15:30→22:17)
--- NOTE | 2019-05-28 15:47 | NUR ---
CM/SS: Met wit pt to discuss plan for discharge Plan: Pt to go to a skilled facility prior to inpatient rehab based on his weight bearing limitations. Summary: Pt is given the choice list as to skilled facilities. Pt has determined that he would like to go to [facility], followed by [facility]. Pt reports near [place] as that is close to wear his brother lives, as to that is where he is will be staying when discharged. Referral to [facility] - they are full until next week and are unable to determine when they would have a male bed available. This worker was able to obtain a list of preferred in network providers in the area. At this point all of the [facility] are in the network. Information has been faxed to [facility]. Follow up phone calls to determine if pt can be accepted, unable to speak to the manager of administration, no answer at this time, message left.
[2019-05-28 16:00] VITALS: BP 118/72
[2019-05-28] MEDS: POLYETHYLENE GLYCOL 17 GM (MIRALAX) PACK PO SCH (19:41)
[2019-05-28 20:06] VITALS: BP 118/74
[2019-05-28 23:27] VITALS: BP 108/67
[2019-05-29] VITALS (12 sets, daily range): BP systolic 117–134; BP diastolic 59–81
[2019-05-29] MEDS: morphine (ROXINOL) 10 MG/0.5 ML oral conc 0.5 ML PO PRN ×5 (02:28→23:53)
--- NOTE | 2019-05-29 07:12 | Progress Note - Surgery ---
BHARGAVI SOLIS,MED STUDENT 05/29/19 0712: Subjective Date Seen by a Provider: May 29, 2019 Time Seen by a Provider: 06:55 Subjective/Events-last exam Patient seen and examined this morning. States he is feeling about the same as yesterday. Has been having pain in his jaw and states the wires are rubbing and hurting. Denies any shortness of breath. Still no bowel movement, but denies any abdominal pain or distension. He is scheduled for repair of his left scapula today around noon. Review of Systems General: No Chills, No Night Sweats, No Fatigue HEENT: No Head Aches, No Visual Changes; Other (jaw pain) Pulmonary: No Dyspnea, No Cough Cardiovascular: No: Chest Pain, Palpitations, Edema Gastrointestinal: Constipation; No: Nausea, Vomiting, Abdominal Pain Musculoskeletal: other (jaw pain), shoulder pain (left), leg pain (bilateral) Objective Exam Vital Signs Date Time Temp Pulse Resp B/P (MAP) Pulse Ox O2 Delivery O2 Flow Rate FiO2 05/29/19 04:01 36.6 70 18 118/61 (80) 96 Room Air 05/28/19 23:27 36.6 68 18 108/67 (81) 97 Room Air 05/28/19 20:06 37.5 87 20 118/74 (89) 98 Room Air 05/28/19 20:00 Room Air 05/28/19 16:00 37.4 86 18 118/72 (87) 96 Room Air 05/28/19 14:40 97 Room Air 05/28/19 12:00 36.5 72 16 124/81 (95) 99 Room Air 05/28/19 08:00 36.6 85 16 130/78 (95) 96 Room Air 05/28/19 08:00 Room Air I & O0 05/29/19 07:00 Intake Total 5220 ml Output Total 3700 ml Balance 1520 ml Capillary Refill : Less Than 3 SecondsLess Than 3 Seconds General Appearance: No Apparent Distress, WD/WN HEENT: PERRL/EOMI, Moist Mucous Membranes; No Pharyngeal Erythema, No Scleral Icterus (L), No Scleral Icterus (R); Other (jaw wired shut) Neck: Non Tender, Supple; No Lymphadenopathy (L), No Lymphadenopathy (R) Respiratory: Lungs Clear, Normal Breath Sounds, No Accessory Muscle Use Cardiovascular: Regular Rate, Rhythm, No Murmur Peripheral Pulses: 2+ Radial Pulses (R), 2+ Radial Pulses (L) Gastrointestinal: normal bowel sounds, non tender, soft; No distended Extremity: Normal Capillary Refill, No Pedal Edema, Other (Left leg cast in place) Neurologic/Psychiatric: Alert, Oriented x3, Normal Mood/Affect Skin: Normal Color, Warm/Dry, Ecchymosis Results Lab Microbiology 05/20/19 Gram Stain - Final, Complete 05/20/19 Sputum Culture - Final, Complete Usual upper respiratory anibal Fungus Assessment/Plan Assessment/Plan Assessment/Plan Assessment: -left hemo/pneumothorax, resolved -left clavicle fracture, OR today -Mandibular fracture, repaired surgically -left scapula fracture -left rib fractures -Constipation Plan: Patient is scheduled to undergo internal fixation of his left clavicle around noon today. Waiting on SNF placement before he can go to rehab. Although patients jaw is wired shut, he believes he can still take Miralax through the wires, so will try that when he returns from OR this afternoon. Clinical Quality Measures DVT/VTE Risk/Contraindication: Risk Factor Score Per Nursin RFS Level Per Nursing on Admit: 4+=Very High DYLAN IRWIN DO 05/29/19 1229: Subjective Time Seen by a Provider: 10:36 Subjective/Events-last exam Pt seen and examined just prior to going to OR to get Clavicle fixed. No changes. Objective Exam General Appearance: No Apparent Distress, WD/WN Respiratory: Lungs Clear, Normal Breath Sounds, No Accessory Muscle Use Gastrointestinal: non tender, soft Assessment/Plan Assessment/Plan Assessment/Plan Plan for Clavicle repair today and then can move forward with SNF and eventually rehab. Continue current care. Supervisory-Addendum Brief Verification & Attestation Participated in pt care: history, MDM, physical Personally performed: exam, history, MDM Care discussed with: Medical Student Procedures: n/a Verification and Attestation of Medical Student E/M Service A medical student performed and documented this service in my presence. I reviewed and verified all information documented by the medical student and made modifications to such information, when appropriate. I personally performed the physical exam and medical decision making. Dylan Irwin, May 29, 2019,12:29 BHARGAVI SOLIS,MED STUDENT May 29, 2019 07:12 DYLAN IRWIN DO May 29, 2019 12:29
[2019-05-29] MEDS: DOCUSATE SODIUM 100 MG (COLACE) CAP PO SCH ×2 (07:32→19:28)
[2019-05-29] MEDS: PANTOPRAZOLE 40 MG (PROTONIX) TAB PO SCH (07:32)
--- NOTE | 2019-05-29 08:07 | Progress Note-Pre Operative ---
Pre-Operative Progress Note H&P Reviewed The H&P was reviewed, patient examined and no changes noted. Date Seen by Provider: May 29, 2019 Time Seen by Provider: 08:06 Date H&P Reviewed: May 29, 2019 Time H&P Reviewed: 08:06 Pre-Operative Diagnosis: left displaced, closed clavicle shaft fracture ADRIAN KAHN MD May 29, 2019 08:07
--- NOTE | 2019-05-29 08:09 | Progress Note-Post Operative ---
Post-Operative Progess Note Surgeon (s)/Voip Network Technician (s) Surgeon ADRIAN KAHN MD Voip Network Technician: Moris Lopez Pre-Operative Diagnosis left displaced, closed clavicle shaft fracture Post-Operative Diagnosis left displaced, closed clavicle shaft fracture Procedure & Operative Findings Date of Procedure 05/29/19 Procedure Performed/Findings open reduction and internal fixation of the left clavicle Anesthesia Type GETA Estimated Blood Loss Estimated blood loss (mL): 50 ml Specimens/Packing Specimens Removed none Packing: none ADRIAN KAHN MD May 29, 2019 08:08
[2019-05-29] MEDS ORDERED: LIDOCAINE PF 2% 5 ML (XYLOCAINE) VIAL ONE (09:04)
[2019-05-29] MEDS ORDERED: MIDAZOLAM 2 MG/2 ML (VERSED) VIAL ONE (09:04)
[2019-05-29] MEDS ORDERED: DEXAMETHASONE 10 MG/ML (DECADRON) 1 ML VIAL ONE (09:04)
[2019-05-29] MEDS ORDERED: SEVOFLURANE (ULTANE) 15 ML INHAL SOLN ONE ×4 (09:04→13:07)
[2019-05-29] MEDS ORDERED: PROPOFOL INJECTION 50 ML IV ONE ×2 (09:04→12:35)
[2019-05-29] MEDS ORDERED: fentaNYL INJECTION 100 MCG/2 ML AMP ONE ×2 (09:04→11:19)
[2019-05-29] MEDS ORDERED: ONDANSETRON 4 MG/2 ML (SDV) Z0FRAN ONE (09:04)
[2019-05-29] MEDS ORDERED: ONDANSETRON 4 MG/2 ML (SDV) Z0FRAN IVP PRN ×2 (09:15→13:15)
[2019-05-29] MEDS ORDERED: ACETAMINOPHEN 325 MG TABLET PO PRN (09:15)
[2019-05-29] MEDS ORDERED: BUPIVACAINE 0.25% 30 ML (SENSORCAINE) VIAL ONE ×2 (09:16→12:12)
[2019-05-29] MEDS ORDERED: morphine PF (DURAMORPH) 10 MG/10 ML AMP ONE (10:11)
--- NOTE | 2019-05-29 10:31 | NUR ---
surgery here at this time to get patient. IV cefazolin sent with patient
--- NOTE | 2019-05-29 10:37 | Physical Therapy Progress Note ---
Therapy Progress Note Patient in surgery this morning, will check back this afternoon. CARMELITA NAVA PT May 29, 2019 10:37
[2019-05-29] MEDS: LACTATED RINGERS 1,000 ML IV PRN ×2 (10:41→12:05)
--- NOTE | 2019-05-29 11:35 | Occ Therapy Progress Note ---
Therapy Progress Note Attempt to see pt for OT tx session at 1040. Pt's nurse states pt in procedure to fixate clavicle. Pt's nurse unaware of time of pt's return. OT to attempt to see later. ISAI ARAUJO OTR May 29, 2019 11:35
[2019-05-29] MEDS ORDERED: HYDROmorphone 2 MG/ML VIAL (DILAUDID) ONE (11:44)
[2019-05-29] MEDS ORDERED: ceFAZolin INJECTION 1,000 MG in WATER (STERILE) FOR INJECTION 10 ML IV ONE (11:45)
[2019-05-29] MEDS ORDERED: ROCURONIUM 10 MG/ML 5 ML SYRINGE IV ONE (11:55)
[2019-05-29] MEDS ORDERED: NEOSTIGMINE 3 MG/3 ML VIAL ONE (11:55)
[2019-05-29] MEDS ORDERED: GLYCOPYRROLATE 0.2 MG/ML (ROBINUL) 2 ML VIAL ONE (11:55)
[2019-05-29] MEDS ORDERED: LIDOCAINE/EPI 2% 1:100,00 (XYLOCAINE) 20 ML VIAL ONE (12:23)
[2019-05-29] MEDS ORDERED: HYDROmorphone 2 MG/ML VIAL (DILAUDID) IV ONE (13:15)
[2019-05-29] MEDS ORDERED: MEPERIDINE (DEMEROL) INJ 50 MG/ML IVP ONE (13:15)
--- NOTE | 2019-05-29 13:23 | Anesthesia-General Post-Op ---
General Patient Condition Mental Status/LOC: Same as Preop Cardiovascular: Satisfactory Nausea/Vomiting: Absent Respiratory: Satisfactory Pain: Controlled Complications: Absent Post Op Complications Complications None Follow Up Care/Instructions Patient Instructions None needed. Anesthesia/Patient Condition Patient Condition Patient is doing well, complaining of pain which is to be expected, stable vital signs, no apparent adverse anesthesia problems. TOBY RYAN DO May 29, 2019 13:23
--- NOTE | 2019-05-29 13:50 | Physical Therapy Progress Note ---
Therapy Progress Note Patient is not back from surgery yet this afternoon. Will check back in the morning. CARMELITA NAVA PT May 29, 2019 13:50
--- NOTE | 2019-05-29 14:00 | NUR ---
patient returned to room at this time from surgery. left clavicle dressing dry and intact ice pack to area. patient alert and orientated. stated he is sore but feeling much better. family at bedside, voices no other complaints at this time
--- NOTE | 2019-05-29 15:35 | NUR ---
CM/SS: Met with pt to discuss plan for discharge Plan: Pt to go to skilled facility until he is able to bear weight to participate in inpatient rehab. Summary: Pt report doing ok to day. Pt is getting used to his jaw being wired shut. Other options for placement are discussed. Information from insurance as to coverage related to [employer] and it only covering [facility] facilities is discussed. Pt verbalizes understanding. Pt is ok [facility] and then [facility] for possible placement. [facility] has declined placement due to acuity, and are unable to meet pt needs at at this time. Referral made to [facility], they have declined pt as well. Indicating they are unable to meet pt's needs at this time . [facility] (Mari) contacted verifying fax number for referral. They are open to review. [facility], Bag Grader Amanda is in the building and is given information about pt. She is open to meet with pt. Met with pt. She will talk with the education administrator at [facility] Giulia the Threshing Operator to let them know that they have met pt. Amanda (Shayne Toscano) [facility] will follow up with this worker with any new information. Amanda has indicated that the Auto Insurance is primary and it is risky financially as far as reimbursement goes, and they may wait to pay or it may not get paid. In checking the auto insurance first - it would be [employer].
[2019-05-29] MEDS: POLYETHYLENE GLYCOL 17 GM (MIRALAX) PACK PO SCH (19:28)
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
[2019-05-30 00:40] VITALS: BP 116/63
[2019-05-30] MEDS: morphine (ROXINOL) 10 MG/0.5 ML oral conc 0.5 ML PO PRN ×3 (02:51→10:18)
[2019-05-30 05:00] VITALS: BP 117/63
--- NOTE | 2019-05-30 07:10 | Progress Note - Surgery ---
BHARGAVI SOLIS,MED STUDENT 05/30/19 0710: Subjective Date Seen by a Provider: May 30, 2019 Time Seen by a Provider: 06:50 Subjective/Events-last exam Patient seen and examined in bed this morning. States he did not sleep at all last night and is in a lot of pain. States the pain in his clavicle is the worst pain he has ever felt. Also having cramping pain in his right thigh. Review of Systems General: No Chills, No Fatigue HEENT: No Head Aches, No Visual Changes Pulmonary: No Dyspnea, No Cough Cardiovascular: No: Chest Pain, Palpitations, Edema Gastrointestinal: Constipation; No: Nausea, Vomiting, Abdominal Pain Musculoskeletal: shoulder pain (left clavicle), leg pain (right worse than left) Objective Exam Vital Signs Date Time Temp Pulse Resp B/P (MAP) Pulse Ox O2 Delivery O2 Flow Rate FiO2 05/30/19 05:00 37.6 83 16 117/63 (81) 96 Room Air 05/30/19 00:40 37.4 80 16 116/63 (80) 96 Room Air 05/29/19 20:00 Room Air 05/29/19 20:00 37.9 94 20 134/77 (96) 95 Room Air 05/29/19 19:13 Room Air 05/29/19 16:00 37.3 73 18 119/73 (88) 95 Room Air 05/29/19 14:00 Nasal Cannula 3 05/29/19 14:00 37.1 76 18 125/76 (92) 98 Room Air 05/29/19 13:50 36.5 16 121/76 (91) 95 Nasal Cannula 3 05/29/19 13:45 Nasal Cannula 3 05/29/19 13:40 16 124/74 (91) 98 OxyMask 3 05/29/19 13:30 OxyMask 5 05/29/19 13:30 16 125/75 (92) 97 OxyMask 5 05/29/19 13:20 OxyMask 10 05/29/19 13:20 16 124/81 (95) 98 OxyMask 5 05/29/19 13:10 16 121/77 (92) 100 OxyMask 10 05/29/19 13:05 OxyMask 10 05/29/19 13:00 16 117/76 (90) 99 OxyMask 10 05/29/19 12:53 OxyMask 10 05/29/19 12:53 37 16 123/80 (94) 96 OxyMask 12 05/29/19 08:39 Room Air 05/29/19 08:00 Room Air 05/29/19 08:00 36.8 74 18 124/59 (80) 98 Room Air I & O 05/30/19 07:00 Intake Total 6580 ml Output Total 4825 ml Balance 1755 ml Capillary Refill : Less Than 3 SecondsLess Than 3 Seconds General Appearance: WD/WN, Anxious, Mild Distress HEENT: PERRL/EOMI, Moist Mucous Membranes; No Scleral Icterus (L), No Scleral Icterus (R); Other (jaw wired shut) Neck: Non Tender, Supple; No Lymphadenopathy (L), No Lymphadenopathy (R) Respiratory: Lungs Clear, Normal Breath Sounds, No Accessory Muscle Use Cardiovascular: Regular Rate, Rhythm, No Murmur Peripheral Pulses: 2+ Radial Pulses (R), 2+ Radial Pulses (L) Gastrointestinal: normal bowel sounds, non tender, soft; No distended Extremity: Normal Capillary Refill, No Pedal Edema, Other (Left leg cast in place) Neurologic/Psychiatric: Alert, Oriented x3, Normal Mood/Affect Skin: Normal Color, Warm/Dry, Ecchymosis, Pallor, Other (dressing in place over left clavicle, no erythema or discharge) Results Lab Microbiology 05/20/19 Gram Stain - Final, Complete 05/20/19 Sputum Culture - Final, Complete Usual upper respiratory anibal Fungus Assessment/Plan Assessment/Plan Assessment/Plan Assessment: -left hemo/pneumothorax, resolved -left clavicle fracture, repaired surgically -Mandibular fracture, repaired surgically -left scapula fracture -left rib fractures -Constipation Plan: Still waiting for SNF placement. Will talk to Dr. Irwin about options for pain control. Encourage Miralax use Clinical Quality Measures DVT/VTE Risk/Contraindication: Risk Factor Score Per Nursin RFS Level Per Nursing on Admit: 4+=Very High DYLAN IRWIN DO 05/30/19 1703: Subjective Time Seen by a Provider: 16:51 Subjective/Events-last exam Pt seen and examined, doing well on oral Dilaudid. Objective Exam General Appearance: WD/WN, Anxious, Mild Distress Respiratory: Lungs Clear, Normal Breath Sounds, No Accessory Muscle Use Cardiovascular: Regular Rate, Rhythm, No Murmur Gastrointestinal: non tender, soft Assessment/Plan Assessment/Plan Assessment/Plan Pain control better now with oral Dilaudid. Still waiting on SNF. Continue current care. Supervisory-Addendum Brief Verification & Attestation Participated in pt care: history, MDM, physical Personally performed: exam, history, MDM Care discussed with: Medical Student Procedures: n/a Verification and Attestation of Medical Student E/M Service A medical student performed and documented this service in my presence. I reviewed and verified all information documented by the medical student and made modifications to such information, when appropriate. I personally performed the physical exam and medical decision making. Dylan Irwin, May 30, 2019,17:02 BHARGAVI SOLIS,MED STUDENT May 30, 2019 07:10 DYLAN IRWIN DO May 30, 2019 17:03
--- NOTE | 2019-05-30 07:50 | Progress Note ---
Standard Progress Note Progress Notes/Assess & Plan Date Seen by a Provider: May 30, 2019 Time Seen by a Provider: 07:48 Progress/Assessment & Plan no complaints denies paresthesias Vital Signs Date Time Temp Pulse Resp B/P (MAP) Pulse Ox O2 Delivery O2 Flow Rate FiO2 05/30/19 05:00 37.6 83 16 117/63 (81) 96 Room Air 05/30/19 00:40 37.4 80 16 116/63 (80) 96 Room Air 05/29/19 20:00 Room Air 05/29/19 20:00 37.9 94 20 134/77 (96) 95 Room Air 05/29/19 19:13 Room Air 05/29/19 16:00 37.3 73 18 119/73 (88) 95 Room Air 05/29/19 14:00 Nasal Cannula 3 05/29/19 14:00 37.1 76 18 125/76 (92) 98 Room Air 05/29/19 13:50 36.5 16 121/76 (91) 95 Nasal Cannula 3 05/29/19 13:45 Nasal Cannula 3 05/29/19 13:40 16 124/74 (91) 98 OxyMask 3 05/29/19 13:30 OxyMask 5 05/29/19 13:30 16 125/75 (92) 97 OxyMask 5 05/29/19 13:20 OxyMask 10 05/29/19 13:20 16 124/81 (95) 98 OxyMask 5 05/29/19 13:10 16 121/77 (92) 100 OxyMask 10 05/29/19 13:05 OxyMask 10 05/29/19 13:00 16 117/76 (90) 99 OxyMask 10 05/29/19 12:53 OxyMask 10 05/29/19 12:53 37 16 123/80 (94) 96 OxyMask 12 05/29/19 08:39 Room Air 05/29/19 08:00 Room Air 05/29/19 08:00 36.8 74 18 124/59 (80) 98 Room Air I & O 05/30/19 07:00 Intake Total 6580 ml Output Total 4825 ml Balance 1755 ml LUE NVI distally. Dressing intact. Intact elbow flexion/extension, MCP extension and abduction and thumb IP flexion s/p ORIF L clavicle codman's. No weight bearing LUE sling for comfort FU with me in two weeks ADRIAN KAHN MD May 30, 2019 07:50
[2019-05-30 08:00] VITALS: BP 131/71
[2019-05-30] MEDS: DOCUSATE SODIUM 100 MG (COLACE) CAP PO SCH ×2 (09:00→21:01)
[2019-05-30] MEDS: PANTOPRAZOLE 40 MG (PROTONIX) TAB PO SCH (09:00)
[2019-05-30] MEDS: POLYETHYLENE GLYCOL 17 GM (MIRALAX) PACK PO SCH (09:00)
--- NOTE | 2019-05-30 10:03 | NUR ---
Patient given PRN pain medication at 0730. Since 0730 administration patient has requested more pain medication four times. Patient refused PRN tylenol and motrin. Dr. Cuevas contacted.
--- NOTE | 2019-05-30 10:15 | NUR ---
Orders received from Dr. Irwin via telephone for PRN Dilaudid 1-2mg PO PRN Q4 for severe pain. Read back.
--- NOTE | 2019-05-30 10:17 | Occupational Ther Daily Note ---
OT Current Status-Daily Note Subjective Pt seen supine in bed, pt alert/ awake. Pt agreeable to OT tx session, denies OOB due to pain. Pt states 8/10 pain in L shoulder, described as "excruciating." Pt's acute care certified nursing assistant notified, acute care certified nursing assistant states will speak with nursing. Mental Status/Objective Patient Orientation: Normal For Age ADL-Treatment Therapy Code Descriptions/Definitions Functional [place] Measure: 0=Not Assessed/NA 4=Minimal Assistance 1=Total Assistance 5=Supervision or Setup 2=Maximal Assistance 6=Modified [place] 3=Moderate Assistance 7=Complete IndependenceSCALE: Activities may be completed with or without assistive devices. 7-Zjjnbhqpns-oiyqcno completes the activity by him/herself with no assistance from a helper. 5-Set-up or Clean-up Assistance-helper sets up or cleans up; patient completes activity. [place] assists only prior to or following the activity. 4-Supervision or Touching Assistance-helper provides verbal cues and/or touching/steadying and/or contact guard assistance as patient completes activity. Assistance may be provided throughout the activity or intermittently. 3-Partial/Moderate Assistance-helper does LESS THAN HALF the effort. [place] lifts, holds or supports trunk or limbs, but provides less than half the effort. 2-Substantial/Maximal Assistance-helper does MORE THAN HALF the effort. [place] lifts or holds trunk or limbs and provides more than half the effort. 9-Xouhiyrgg-udwusf does ALL the effort. Patient does none of the effort to complete the activity. Or, the assistance of 2 or more helpers is required for the patient to complete the activity. If activity was not attempted, code reason: 7-Patient Refused. 9-Not Applicable-not attempted and the patient did not perform the activity before the current illness, exacerbation or injury. 10-Not Attempted due to Environmental Limitations-(lack of equipment, weather restraints, etc.). 88-Not Attempted due to Medical Conditions or Safety Concerns. Oral Hygiene (QC): 7 Shower/Bathe Self (QC): 7 Upper Body Dressing (QC): 7 Lower Body Dressing (QC): 7 On/Off Footwear: 7 Toileting Hygiene (QC): 7 Toilet Transfer (QC): 7 Other Treatment Pt given options of ADL treatment, pt denies all, stating he plans to take full shower tomorrow after L clavicle dressing taken off. Pt states yesterday's cl avicle surgery was last surgery. Pt states he has ~2 weeks of PWB on RLE until FWB, and LLE will have PWB ~2 weeks from now. Pt states does not know when he will be able to move LUE. States he moved himself to chair on this date utilizing squat pivot with RUE/ RLE PWB. Pt states he no longer utilizes slide board. Pt agreeable to resistance exercises in bed. Red theraband tied to pt's bed frame, pt completes 10 reps of each exercise with cues for slow/ controlled movement: bicep curls, shoulder flexion, internal rotation, wrist flexions. Pt educated to complete exercises at leave 3x per day, but would be able to complete more if desired/ not fatigued. Pt agrees, pt denies additional needs and left in bed with call light in reach. Pt's acute care certified nursing assistant notified of pain. Education OT Patient Education: Correct positioning, Exercise program, Home exercise pr ogfatimah, Modified ADL techniques, Reviewed precautions, Safety issues Teaching Recipient: Patient Teaching Methods: Demonstration, Discussion Response to Teaching: Verbalize Understanding, Return Demonstration OT [facility] Goals Surgical Attendant Goals Time Frame: May 25, 2019 Eating (QC): 6 Oral Hygiene (QC): 6 Toileting Hygiene (QC): 2 Shower/Bathe Self (QC): 3 Upper Body Dressing (QC): 4 Lower Body Dressing (QC): 2 On/Off Footwear (QC): 5 Additional Goals: 1-Demonstrate ADL Tasks, 2-Verbalize Understanding, 3- ImproveStrength/Oscar 1=Demonstrate adherence to instructed precautions during ADL tasks. 2=Patient will verbalize/demonstrate understanding of assistive devices/modifications for ADL. 3=Patient will improve strength/tolerance for activity to enable patient to perform ADL's. OT Education/Plan Problem List/Assessment Assessment: Decreased Activ Tolerance, Impaired Bed Mobility, Impaired Funct Balance, Impaired I ADL's, Impaired Self-Care Skills, Restricted Funct UE ROM Discharge Recommendations Plan/Recommendations: Continue POC Therapy Discharge Recommendati: 24 Hour Supervision Treatment Plan/Plan of Care Treatment,Training & Education: Yes Patient would benefit from OT for education, treatment and training to promote independence in ADL's, mobility, safety and/or upper extremity function for ADL's. Plan of Care: ADL Retraining, Concurrent Therapy, Functional Mobility, Orthotic Fitting/Training, UE Funct Exercise/Act, W/C Management Training Treatment Duration: May 25, 2019 Frequency: 5 times per week Estimated Hrs Per Day: .25 hour per day Agreement: Yes Rehab Potential: Good Time/GCodes Start Time: 09:42 Stop Time: 09:52 Total Time Billed (hr/min): 10 Billed Treatment Time 1, EX (10) ISAI ARAUJO OTR May 30, 2019 10:17
--- NOTE | 2019-05-30 11:33 | Physical Therapy Daily Note ---
PT Daily Note-Current Subjective Patient agreeable to therapy. Patient rates pain as an 8 out of 10 at his left clavicle. Pain Numeric Pain Scale: 8 Location: Left Location Body Site: Shoulder Appearance Post treatment patient left in recliner with call light and bedside table within reach. Mental Status Patient Orientation: Person, Place, Time, Situation Transfers SCALE: Activities may be completed with or without assistive devices. 4-Bhxhmquskm-msnbfmg completes the activity by him/herself with no assistance from a helper. 5-Set-up or Clean-up Assistance-helper sets up or cleans up; patient completes activity. [place] assists only prior to or following the activity. 4-Supervision or Touching Assistance-helper provides verbal cues and/or touching/steadying and/or contact guard assistance as patient completes activity. Assistance may be provided throughout the activity or intermittently. 3-Partial/Moderate Assistance-helper does LESS THAN HALF the effort. [place] lifts, holds or supports trunk or limbs, but provides less than half the effort. 2-Substantial/Maximal Assistance-helper does MORE THAN HALF the effort. [place] lifts or holds trunk or limbs and provides more than half the effort. 0-Bbwrjusll-mnqbgo does ALL the effort. Patient does none of the effort to complete the activity. Or, the assistance of 2 or more helpers is required for the patient to complete the activity. If activity was not attempted, code reason: 7-Patient Refused. 9-Not Applicable-not attempted and the patient did not perform the activity before the current illness, exacerbation or injury. 10-Not Attempted due to Environmental Limitations-(lack of equipment, weather restraints, etc.). 88-Not Attempted due to Medical Conditions or Safety Concerns. Roll Left & Right (QC): 6 Sit to Lying (QC): 6 Chair/Klb-wq-Sbegn Xfer(QC): 6 Weight Bearing Right Lower Extremity: Right Partial Weight Bearing Left Lower Extremity: Left Non Weight Bearing Gait Training Does the Patient Walk?: No and Walking Goal NOT indicated Exercises Supine Ex: Quad Set, Glut sets, Straight leg raise Supine Reps: 15 Seated Therapy Exercises: Ankle pumps, Long arc quads Seated Reps: 15 Treatments Exercises, transfers Assessment Current Status: Good Progress Patient performed well considering his injuries and his pain level. Patient is able to set up and perform his transfer from bed to recliner IND. PT Short Term Goals Short Term Goals Time Frame: May 25, 2019 Roll Left & Right: 3 Sit to lyin Lying to sitting on side of be: 3 Does pt use a wc or scooter: No PT Custodial Goals Integration Manager Goals PT Integration Manager Goals Time Frame: Jun 08, 2019 Roll Left & Right (QC): 6 Sit to Lying (QC): 6 Lying-Sitting on Side/Bed(QC): 6 Chair/Svg-ig-Knzpy Xfer(QC): 6 Toilet Transfer (QC): 6 PT Plan Problem List Problem List: Activity Tolerance, Functional Strength, Safety, Balance, Gait, Transfer, Bed Mobility Treatment/Plan Treatment Plan: Continue Plan of Care Treatment Plan: Bed Mobility, Education, Functional Activity Oscar, Functional Strength, Gait, Therapeutic Exercise, Transfers Treatment Duration: Jun 08, 2019 Frequency: 6 times per week Estimated Hrs Per Day: .25 hour per day Safety Risks/Education Patient Education: Transfer Techniques Teaching Recipient: Patient Teaching Methods: Discussion Response to Teaching: Verbalize Understanding Time/GCodes Time In: 1010 Time Out: 1025 Total Billed Treatment Time: 15 Total Billed Treatment 1 visit REEV (15 minutes) MIRIAN SPAULDING PT May 30, 2019 11:33
[2019-05-30 11:55] VITALS: BP 119/60
--- NOTE | 2019-05-30 12:30 | Anesthesia-General Post-Op ---
General Patient Condition Mental Status/LOC: Same as Preop Cardiovascular: Satisfactory Nausea/Vomiting: Absent Respiratory: Satisfactory Pain: Controlled Complications: Absent Post Op Complications Complications None Follow Up Care/Instructions Patient Instructions None needed. Anesthesia/Patient Condition Patient Condition Patient is doing well, no complaints, stable vital signs, no apparent adverse anesthesia problems. No complications reported per nursing. EUSEBIO AHN CRNA May 30, 2019 12:30
[2019-05-30] MEDS: HYDROmorphone (DILAUDID) 2 MG TAB PO PRN ×3 (12:38→21:01)
[2019-05-30 16:00] VITALS: BP 104/53
--- NOTE | 2019-05-30 16:36 | NUR ---
CM/SS: Met with pt to discuss plan for discharge Plan: Pt to go to a retirement facility prior to his inpatient rehab stay here at hospital. Summary: Discuss with pt some of the challenges related to the car insurance and the [employer] secondary insurance. [facility] contacted prior to talking with pt this morning. Dinora Rivers [phone] ext [phone]. Discussed the challenges with the retirement facilities indicating that the car insurance [employer] is primary. She reports it is likely [employer] will pay 7 to 14 days, however the primary [employer] is billed first then [employer]. Discussed the challenges with this. She verified that [employer] is to be billed primary. Pt reports that he has not talked with anyone from [email or web address], but has with [employer]. Pt also offered to call someone if it would help. This worker appreciates this, but is unable to tell him who to contact. Pt continues to be patient with the process. [facility] called to say the [employer] is NOT in their network and they can not take the pt. Other referrals to [facility], [facility], and [facility]. Call made to [facility] to report what [facility] is saying about not being in network. Call back from [facility], in fact they are in network and are ok to contact [facility] billing to discuss. Flori [place] [phone] ext [phone] Talk with pt again. He is tearful this visit. Just getting off phone with mother. Give him list of providers - retirement. He looks at list and request [place] as options, as he has a sister in law that lives there. [facility] selected. Referral fax sent to them. Pt is given the short version of the issues with [employer] and [employer]. Follow up call to [facility] - they have received fax and need to review and will let this worker know yes or no if he can be accepted.
[2019-05-30 20:00] VITALS: BP 114/66
[2019-05-31] VITALS: BP 122/76
[2019-05-31] MEDS: HYDROmorphone (DILAUDID) 2 MG TAB PO PRN ×6 (01:23→23:57)
[2019-05-31 04:00] VITALS: BP 114/65
--- NOTE | 2019-05-31 06:48 | Progress Note - Surgery ---
BHARGAVI SOLIS,MED STUDENT 05/31/19 0648: Subjective Date Seen by a Provider: May 31, 2019 Time Seen by a Provider: 06:35 Subjective/Events-last exam Patient seen and examined this morning. He is sleeping comfortably when I enter the room. States his pain is much better than yesterday. He is still having pain in his left clavicle, which he states makes it hard for him to take deep breaths at times. Review of Systems General: No Chills, No Fatigue Pulmonary: No Dyspnea, No Cough Cardiovascular: No: Chest Pain, Palpitations, Edema Gastrointestinal: Constipation; No: Nausea, Vomiting, Abdominal Pain Musculoskeletal: shoulder pain (left clavicular area), leg pain Objective Exam Vital Signs Date Time Temp Pulse Resp B/P (MAP) Pulse Ox O2 Delivery O2 Flow Rate FiO2 05/31/19 04:00 36.4 76 20 114/65 (81) 95 Room Air 05/31/19 00:00 37.0 91 20 122/76 (91) 98 Room Air 05/30/19 20:00 Room Air 05/30/19 20:00 37.1 96 20 114/66 (82) 97 Room Air 05/30/19 16:00 36.8 78 18 104/53 (70) 97 Room Air 05/30/19 11:55 37.4 95 20 119/60 (79) 97 Room Air 05/30/19 10:19 Room Air 05/30/19 08:00 98 Room Air 05/30/19 08:00 37.3 89 20 131/71 (91) 98 Room Air I & O 05/31/19 07:00 Intake Total 5022 ml Output Total 1925 ml Balance 3097 ml Capillary Refill : Less Than 3 SecondsLess Than 3 Seconds General Appearance: No Apparent Distress, WD/WN HEENT: PERRL/EOMI, Moist Mucous Membranes; No Scleral Icterus (L), No Scleral Icterus (R); Other (jaw wired shut) Respiratory: Lungs Clear, Normal Breath Sounds, No Accessory Muscle Use Cardiovascular: Regular Rate, Rhythm, No Murmur Peripheral Pulses: 2+ Radial Pulses (R), 2+ Radial Pulses (L) Gastrointestinal: normal bowel sounds, non tender, soft Extremity: No Pedal Edema, Other (Left leg cast in place) Neurologic/Psychiatric: Alert, Oriented x3, Normal Mood/Affect Skin: Normal Color, Warm/Dry, Other (dressing in place over left clavicle, no erythema or discharge) Results Lab Microbiology 05/20/19 Gram Stain - Final, Complete 05/20/19 Sputum Culture - Final, Complete Usual upper respiratory anibal Fungus Assessment/Plan Assessment/Plan Assessment/Plan Assessment: -left hemo/pneumothorax, resolved -left clavicle fracture, repaired surgically -Mandibular fracture, repaired surgically -left scapula fracture -left rib fractures -Constipation Plan: Encourage continued IS use. Continue with current care until SNF placement can be set up Clinical Quality Measures DVT/VTE Risk/Contraindication: Risk Factor Score Per Nursin RFS Level Per Nursing on Admit: 4+=Very High DYLAN IRWIN DO 05/31/19 1608: Subjective Time Seen by a Provider: 15:08 Subjective/Events-last exam Pt seen and examined, diet increased slightly and he is tolerating it. States pain is controlled. Review of Systems General: No Chills, No Fatigue Pulmonary: No Dyspnea, No Cough Cardiovascular: No: Chest Pain, Palpitations Gastrointestinal: No: Nausea, Vomiting, Abdominal Pain Musculoskeletal: shoulder pain (left clavicular area), leg pain; No: arm pain Objective Exam General Appearance: No Apparent Distress, WD/WN Respiratory: Lungs Clear, Normal Breath Sounds Cardiovascular: Regular Rate, Rhythm, No Murmur Gastrointestinal: normal bowel sounds, non tender, soft Assessment/Plan Assessment/Plan Assessment/Plan Pt is doing well,eating and comfortable. SW is still working on getting him placed; that is all we are waiting on. Unfortunately, family is not an option to get pt home too. Supervisory-Addendum Brief Verification & Attestation Participated in pt care: history, MDM, physical Personally performed: exam, history, MDM Care discussed with: Medical Student Procedures: n/a Verification and Attestation of Medical Student E/M Service A medical student performed and documented this service in my presence. I r eviewed and verified all information documented by the medical student and made modifications to such information, when appropriate. I personally performed the physical exam and medical decision making. Dylan Irwin, May 31, 2019,16:11 BHARGAVI SOLIS,MED STUDENT May 31, 2019 06:48 DYLAN IRWIN DO May 31, 2019 16:08
[2019-05-31 08:00] VITALS: BP 124/59
[2019-05-31] MEDS: DOCUSATE SODIUM 100 MG (COLACE) CAP PO SCH ×2 (08:55→19:31)
[2019-05-31] MEDS: PANTOPRAZOLE 40 MG (PROTONIX) TAB PO SCH (08:55)
--- NOTE | 2019-05-31 10:39 | Progress Note - Ortho ---
Progress Note Subjective Date of Exam 05/31/19 Chief Complaint POD#7 closed IM rodding right femur and open reduction internal fixation medial malleolus left ankle HPI/Events since last exam Mr. Oliva is 7 days postop and closed IM rodding right femoral shaft and open reduction internal fixation medial malleolus left ankle. He is really having minimal to no pain. Dr. Cuevas did an open reduction internal fixation of his left clavicle on Monday so is 2 days postop. He states the pain is significantly less. He's also had his fractured mandible taking care of this well. Review of Systems Reviewed and no additions or changes Allergies: Coded Allergies: No Known Drug Allergies (Unverified , 03/14/17) Home Meds No Active Prescriptions or Reported Meds Objective Exam Constitutional: [] HEENT: [] Neck: [] Cardiovascular: [] Respiratory: [] Gastrointestinal: [] Genitourinary: [] Skin: [] Back/Spine: [] Extremities: Left upper extremity dressing is intact over the clavicle. He is neurovascularly intact to the left upper extremity. Left lower extremityI removed his short leg cast and x-ray and we obtained x-rays of his ankle. His incision is healing well without redness or drainage. Right lower extremityhis incisions are healing well without redness or drainage. He's neurovascularly intact in both lower extremities [] Neurologic: [] Psychiatric: [] Hematologic/lymphatic/immunologic: [] Vital Signs Vital Signs Date Time Temp Pulse Resp B/P (MAP) Pulse Ox O2 Delivery O2 Flow Rate FiO2 05/31/19 10:26 36.8 05/31/19 08:00 36.8 74 18 124/59 (80) 98 Room Air 05/31/19 04:00 36.4 76 20 114/65 (81) 95 Room Air 05/31/19 00:00 37.0 91 20 122/76 (91) 98 Room Air 05/30/19 20:00 Room Air 05/30/19 20:00 37.1 96 20 114/66 (82) 97 Room Air 05/30/19 16:00 36.8 78 18 104/53 (70) 97 Room Air 05/30/19 11:55 37.4 95 20 119/60 (79) 97 Room Air I & O 05/31/19 07:00 Intake Total 5022 ml Output Total 1925 ml Balance 3097 ml Lab Results Microbiology 05/20/19 Gram Stain - Final, Complete 05/20/19 Sputum Culture - Final, Complete Usual upper respiratory anibal Fungus Imaging X-rays were obtained of the left ankle out of cast which shows minimal displacement of the medial malleolar fracture with good position of the plate and screws and articular surface shows no step off. No widening of the mortise or syndesmosis X-ray of the right femur shows continued good alignment of the mukesh and screws and good alignment of the fracture comminuted fractures noted minimally displaced Assessment and Plan Assessment Doing well 7 days postop Problem List Unchanged Plan Continue partial weightbearing to full weightbearing on the right lower extremity for transfers. No weight on the left. A new cast was applied after removing the myles. The myles were removed from the femoral incisions. No weight through the left upper extremity Final Diagonsis Status post closed IM rodding right femur and open reduction internal fixation medial malleolus left ankle Level of the visit: Level 3 Clinical Quality Measures DVT/VTE Risk/Contraindication: Risk Factor Score Per Nursin RFS Level Per Nursing on Admit: 4+=Very High ZANE GRECO MD May 31, 2019 10:39
--- NOTE | 2019-05-31 11:16 | Diagnostic Imaging Report ---
INDICATION: Cast removal left ankle. TIME OF EXAM: 9:51 AM Comparison is made with prior radiograph from 05/17/2019. 3 views left ankle demonstrate postoperative changes to the medial malleolus. There 2 partially threaded screws transfixing the transversely oriented fracture of the medial malleolus. Fracture line remains visible. Alignment is anatomic. Overlying skin myles are noted. Ankle mortise is maintained. IMPRESSION: Postsurgical changes to the medial malleolus. Fracture line does remain clearly visible. Dictated by: Dictated on workstation # [id number]
--- NOTE | 2019-05-31 11:17 | Diagnostic Imaging Report ---
INDICATION: Right leg fracture. TIME OF EXAM: 9:54 a.m. COMPARISON: Comparison is made with prior radiographs from 05/17/2019. FINDINGS: Intramedullary mukesh with proximal distal screws transfix the mid shaft femur fracture. Fracture line does remain clearly visible. Alignment is anatomic. Dominant fracture fragment does show some slight posterior displacement on the lateral view. IMPRESSION: Postop changes of ORIF involving mid shaft femur fracture. Fracture line does remain clearly visible. Dictated by: Dictated on workstation # [id number]
--- NOTE | 2019-05-31 11:34 | Occupational Ther Daily Note ---
OT Current Status-Daily Note Subjective Pt brought to 4th by DO post-cast removal/ re-donning. Pt's DO states pt able to complete shower with op tape over steri-strips on hip and elbow. Pt's nurse notified of actions, pt denies pain at the moment. Mental Status/Objective Patient Orientation: Normal For Age ADL-Treatment Therapy Code Descriptions/Definitions Functional [place] Measure: 0=Not Assessed/NA 4=Minimal Assistance 1=Total Assistance 5=Supervision or Setup 2=Maximal Assistance 6=Modified [place] 3=Moderate Assistance 7=Complete IndependenceSCALE: Activities may be completed with or without assistive devices. 1-Iyhbakdxjn-snnkvxj completes the activity by him/herself with no assistance from a helper. 5-Set-up or Clean-up Assistance-helper sets up or cleans up; patient completes activity. [place] assists only prior to or following the activity. 4-Supervision or Touching Assistance-helper provides verbal cues and/or touching/steadying and/or contact guard assistance as patient completes activity. Assistance may be provided throughout the activity or intermittently. 3-Partial/Moderate Assistance-helper does LESS THAN HALF the effort. [place] lifts, holds or supports trunk or limbs, but provides less than half the effort. 2-Substantial/Maximal Assistance-helper does MORE THAN HALF the effort. [place] lifts or holds trunk or limbs and provides more than half the effort. 6-Vanpofmnl-fiurbk does ALL the effort. Patient does none of the effort to complete the activity. Or, the assistance of 2 or more helpers is required for the patient to complete the activity. If activity was not attempted, code reason: 7-Patient Refused. 9-Not Applicable-not attempted and the patient did not perform the activity before the current illness, exacerbation or injury. 10-Not Attempted due to Environmental Limitations-(lack of equipment, weather restraints, etc.). 88-Not Attempted due to Medical Conditions or Safety Concerns. Shower/Bathe Self (QC): 5 (s/u (bag over casting, op tape over areas of staple removal). Pt able to utilize hand held shower nozzle to reach all areas, pt denies assistance. ) Upper Body Dressing (QC): 5 On/Off Footwear: 4 (pt doffs footwear with strategic planning manager. ) Other Treatment Pt's DO and nursing educated of pt's desire to shower. Recommendations for pt s/u for shower adhered to. Pt prepped for shower task with bags and op sites over steri strips. Pt wheels recliner into bathroom with RLE, positions it for success. Pt completes transfer chair to shower chair with SUP, utilizes RLE for WB and RUE to hold on to grab bars and scoot onto shower bench. Pt undresses UB with IND, pt begins to shower and denies need for OT assist. Pt educated by nursing and re-educated by OT to avoid LLE soaking and L clavicle area. Pt agrees. Pt denies need. Pt educated to pull call light post-showering. Pt agreeable, demonstrates good safety awareness and compliance to therapy james mmendations. Pt's nurse notified of pt position and OT's recommendation to pull call light once dry to ensure safe transfer back to recliner chair. Education OT Patient Education: Correct positioning, Progress toward Goal/Update tx plan, Purpose of tx/functional activities, Reviewed precautions, Safety issues, Transfer techniques, Use of adapted equipment Teaching Recipient: Patient Teaching Methods: Demonstration, Discussion Response to Teaching: Verbalize Understanding, Return Demonstration OT Baseboard Heating Installer Goals Baseboard Heating Installer Goals Time Frame: May 25, 2019 Eating (QC): 6 Oral Hygiene (QC): 6 Toileting Hygiene (QC): 2 Shower/Bathe Self (QC): 3 Upper Body Dressing (QC): 4 Lower Body Dressing (QC): 2 On/Off Footwear (QC): 5 Additional Goals: 1-Demonstrate ADL Tasks, 2-Verbalize Understanding, 3- ImproveStrength/Oscar 1=Demonstrate adherence to instructed precautions during ADL tasks. 2=Patient will verbalize/demonstrate understanding of assistive devices /modifications for ADL. 3=Patient will improve strength/tolerance for activity to enable patient to perform ADL's. OT Education/Plan Problem List/Assessment Assessment: Decreased Activ Tolerance, Decreased UE Strength, Dependent Transfers, Impaired Funct Balance, Impaired I ADL's, Impaired Self-Care Skills, Restricted Funct UE ROM Discharge Recommendations Plan/Recommendations: Continue POC Treatment Plan/Plan of Care Treatment,Training & Education: Yes Patient would benefit from OT for education, treatment and training to promote independence in ADL's, mobility, safety and/or upper extremity function for ADL's. Plan of Care: ADL Retraining, Concurrent Therapy, Functional Mobility, Orthotic Fitting/Training, UE Funct Exercise/Act, W/C Management Training Treatment Duration: May 25, 2019 Frequency: 5 times per week Estimated Hrs Per Day: .25 hour per day Agreement: Yes Rehab Potential: Good Time/GCodes Start Time: 10:10 Stop Time: 10:55 Total Time Billed (hr/min): 45 Billed Treatment Time 1, ADL 3 (45) ISAI ARAUJO OTR May 31, 2019 11:34
[2019-05-31 12:11] VITALS: BP 113/71
--- NOTE | 2019-05-31 12:50 | Physical Therapy Daily Note ---
PT Daily Note-Current Subjective Patient is agreeable to therapy. Appearance Patient in recliner with bedside table and call light within reach. Mental Status Patient Orientation: Person, Place, Time, Situation Transfers SCALE: Activities may be completed with or without assistive devices. 9-Pcytqfhswz-ypanjjw completes the activity by him/herself with no assistance from a helper. 5-Set-up or Clean-up Assistance-helper sets up or cleans up; patient completes activity. [place] assists only prior to or following the activity. 4-Supervision or Touching Assistance-helper provides verbal cues and/or touching/steadying and/or contact guard assistance as patient completes activity. Assistance may be provided throughout the activity or intermittently. 3-Partial/Moderate Assistance-helper does LESS THAN HALF the effort. [place] lifts, holds or supports trunk or limbs, but provides less than half the effort. 2-Substantial/Maximal Assistance-helper does MORE THAN HALF the effort. [place] lifts or holds trunk or limbs and provides more than half the effort. 7-Essnjsikk-wsfqul does ALL the effort. Patient does none of the effort to complete the activity. Or, the assistance of 2 or more helpers is required for the patient to complete the activity. If activity was not attempted, code reason: 7-Patient Refused. 9-Not Applicable-not attempted and the patient did not perform the activity befo re the current illness, exacerbation or injury. 10-Not Attempted due to Environmental Limitations-(lack of equipment, weather re straints, etc.). 88-Not Attempted due to Medical Conditions or Safety Concerns. Roll Left & Right (QC): 6 Sit to Lying (QC): 6 Lying to Sitting/Side of Bed(Q: 6 Chair/Pve-tl-Dycva Xfer(QC): 6 Patient performs squat pivot transfer maintaining weight bearing precautions. Weight Bearing Right Lower Extremity: Right Partial Weight Bearing Left Lower Extremity: Left Non Weight Bearing Gait Training Does the Patient Walk?: No and Walking Goal NOT indicated Exercises Supine Ex: Ankle pumps, Quad Set, Glut sets, Heel Slides, Straight leg raise, Hip abd/add Supine Reps: 15 Seated Therapy Exercises: Ankle pumps, Long arc quads, Hip flexion Seated Reps: 15 Assessment Current Status: Good Progress Patient is able to set his recliner up for a transfer and transfer IND. Patient is complaint with doing his exercises and performs them throughout the day as well as with the therapist. PT Short Term Goals Short Term Goals Time Frame: May 25, 2019 Roll Left & Right: 3 Sit to lyin Lying to sitting on side of be: 3 Does pt use a wc or scooter: No PT Financial Accounting Manager Goals Financial Accounting Manager Goals PT Correction Goals Time Frame: Jun 08, 2019 Roll Left & Right (QC): 6 Sit to Lying (QC): 6 Lying-Sitting on Side/Bed(QC): 6 Chair/Yji-nc-Ybzka Xfer(QC): 6 Toilet Transfer (QC): 6 PT Plan Problem List Problem List: Activity Tolerance, Functional Strength, Safety, Balance, Bed Mobility Treatment/Plan Treatment Plan: Continue Plan of Care Treatment Plan: Bed Mobility, Education, Functional Activity Oscar, Functional Strength, Gait, Therapeutic Exercise, Transfers Treatment Duration: Jun 08, 2019 Frequency: 6 times per week Estimated Hrs Per Day: .25 hour per day Safety Risks/Education Patient Education: Transfer Techniques Teaching Recipient: Patient Teaching Methods: Discussion Response to Teaching: Reinforcement Needed Time/GCodes Time In: 1132 Time Out: 1146 Total Billed Treatment Time: 14 Total Billed Treatment 1 visit EX (14 minutes) MIRIAN SPAULDING PT May 31, 2019 12:50
--- NOTE | 2019-05-31 13:01 | NUR ---
"RD ASSESSMENT PMHx: multiple fractures PT INTERACTION: Pt was awake and pleasant during nutrtion follow-up. Pt states tolerating Clear liquid diet very well, but would like something besides clear liquids like milk. Note avg PO intake of 50% x3d, per chart review. Pt states no recent issues with n/v at this time. Note pt has not had a BM since 05/18, and pt currently on bowel regimen of colace BID, and miralax HS, per chart review. ABNORMAL NUTRITION-RELATED LAB VALUES All labs WNL Est. kcal needs: 2181-7814 kcal | 25-30 kcal/kg Est. Pro needs: 92-115 g Pro | 1.2-1.5 g Pro/kg PES STATEMENT: Inadequate oral intake (NI-2.1) related to food choices | loss of appetite | constipation as evidenced by pt interview | avg PO intake 50% x3d INTERVENTION: Recommend advancing to Regular diet, but limiting food options to soups, milks and protein drinks. Since chewing food is out of the question, I feel like he could tolerate more than broths, jello, and Ensure Clear. Will continue to follow and reassess as pt needs and status change. MONITOR/EVALUATE: PO Intake; Plan of Care; Hydration Status; Weight Status; Lab Values Whitney Burton, MS, RD, LD"
[2019-05-31 15:42] VITALS: BP 113/65
--- NOTE | 2019-05-31 16:25 | NUR ---
CM/SS: Visited with pt as to his plan for discharge. Plan: Pt to go to a senior living until until he is able to be admitted to inpatient hospital rehab. Summary: [facility] declined pt. Talk with pt as to options, knowing that all the skilled facilities referred have turned him down based on [employer] insurance being primary. Discuss with him options if he were to go home. Right now his significant other is staying with his brother and sister taking care of the kids. Significant other has to be watched 24 hours a day and can not be left alone, due to brain injury, along with them caring for the six children. This is clearly not an option. He reports no other friends or family to stay with until weight bearing. He reports he has talked with his mother and she was thinking of options as well. He does ask about the private pay option and will let his mother know. Pt also offers to call the insurance company [employer], however this worker is unclear as to who to call. Mood remain good and just wants to be able to go somewhere so that in two weeks he can bear weight and be able to walk. This worker shares that starting with the stock and station agent is a good option, and the out of pocket cost for [facility] is about $164.00 per day plus therapy cost. Pt reminded this worker will follow up Monday. If he had other options or suggestions staff could reach this worker. Pt thanked this worker for her help.
[2019-05-31] MEDS: POLYETHYLENE GLYCOL 17 GM (MIRALAX) PACK PO SCH (19:31)
[2019-05-31 20:30] VITALS: BP 115/58
[2019-06-01] VITALS: BP 118/73
[2019-06-01 03:55] VITALS: BP 120/72
[2019-06-01] MEDS: HYDROmorphone (DILAUDID) 2 MG TAB PO PRN ×5 (04:00→21:21)
--- NOTE | 2019-06-01 08:07 | Progress Note ---
Standard Progress Note Progress Notes/Assess & Plan Date Seen by a Provider: Jun 01, 2019 Time Seen by a Provider: 08:05 Progress/Assessment & Plan no complaints denies paresthesias Vital Signs Date Time Temp Pulse Resp B/P (MAP) Pulse Ox O2 Delivery O2 Flow Rate FiO2 05/30/19 05:00 37.6 83 16 117/63 (81) 96 Room Air 05/30/19 00:40 37.4 80 16 116/63 (80) 96 Room Air 05/29/19 20:00 Room Air 05/29/19 20:00 37.9 94 20 134/77 (96) 95 Room Air 05/29/19 19:13 Room Air 05/29/19 16:00 37.3 73 18 119/73 (88) 95 Room Air 05/29/19 14:00 Nasal Cannula 3 05/29/19 14:00 37.1 76 18 125/76 (92) 98 Room Air 05/29/19 13:50 36.5 16 121/76 (91) 95 Nasal Cannula 3 05/29/19 13:45 Nasal Cannula 3 05/29/19 13:40 16 124/74 (91) 98 OxyMask 3 05/29/19 13:30 OxyMask 5 05/29/19 13:30 16 125/75 (92) 97 OxyMask 5 05/29/19 13:20 OxyMask 10 05/29/19 13:20 16 124/81 (95) 98 OxyMask 5 05/29/19 13:10 16 121/77 (92) 100 OxyMask 10 05/29/19 13:05 OxyMask 10 05/29/19 13:00 16 117/76 (90) 99 OxyMask 10 05/29/19 12:53 OxyMask 10 05/29/19 12:53 37 16 123/80 (94) 96 OxyMask 12 05/29/19 08:39 Room Air 05/29/19 08:00 Room Air 05/29/19 08:00 36.8 74 18 124/59 (80) 98 Room Air I & O 05/30/19 07:00 Intake Total 6580 ml Output Total 4825 ml Balance 1755 ml LUE NVI distally. Dressing intact. Intact elbow flexion/extension, MCP extension and abduction and thumb IP flexion s/p ORIF L clavicle codman's. No weight bearing LUE sling for comfort FU with me in two weeks Final Diagnosis reports LUE feeling much better incision clean and dry L clavicle NVI distally s/p ORIF L clavicle enoc, elbow ROM ADRIAN KAHN MD Jun 01, 2019 08:06
[2019-06-01] MEDS: PANTOPRAZOLE 40 MG (PROTONIX) TAB PO SCH (08:15)
[2019-06-01] MEDS: DOCUSATE SODIUM 100 MG (COLACE) CAP PO SCH ×2 (08:15→20:01)
[2019-06-01 08:29] VITALS: BP 118/72
[2019-06-01 11:17] VITALS: BP 126/70
--- NOTE | 2019-06-01 11:41 | Physical Therapy Progress Note ---
Therapy Progress Note 11:34am, Attempted PT visit made, pt stating he feels he is doing as good as possible for his situation right now, has been up and down between bed and recliner on his own independently, has had 2 BM's since yesterday and is feeling much better, states he is doing all of his ex's for his UE/LE as he has been instructed to. Pt requesting to just rest right now. Reviewed pt's WB precautions of PWB to FWB RLE for transfers, NWB LLE, NWB LUE. Pt able to recite precautions without cuing. MARTA POP BOAT HOIST OPERATOR HELPER Jun 01, 2019 11:41
[2019-06-01 16:00] VITALS: BP 111/78
--- NOTE | 2019-06-01 17:23 | Progress Note - Surgery ---
BHARGAVI SOLIS,MED STUDENT 06/01/19 1723: Subjective Date Seen by a Provider: Jun 01, 2019 Time Seen by a Provider: 16:14 Subjective/Events-last exam Patient seen and examined this afternoon. He is resting comfortably in his chair during exam. He states he is feeling great and eating well, no complaints at this time Review of Systems Pulmonary: No Dyspnea, No Cough Cardiovascular: No: Chest Pain Gastrointestinal: No: Nausea, Vomiting, Abdominal Pain Objective Exam Vital Signs Date Time Temp Pulse Resp B/P (MAP) Pulse Ox O2 Delivery O2 Flow Rate FiO2 06/01/19 16:00 36.5 86 16 111/78 (89) 99 Room Air 06/01/19 11:17 36.3 94 20 126/70 (88) 100 Room Air 06/01/19 10:28 Room Air 06/01/19 08:29 36.4 78 20 118/72 (87) 99 Room Air 06/01/19 08:00 Room Air 06/01/19 03:55 36.8 79 18 120/72 (88) 98 Room Air 06/01/19 00:00 36.9 81 16 118/73 (88) 97 Room Air 05/31/19 22:19 Room Air 05/31/19 20:30 36.9 90 20 115/58 (77) 98 Room Air 05/31/19 19:30 Room Air I & O 06/01/19 07:00 Intake Total 3393 ml Output Total 1450 ml Balance 1943 ml Capillary Refill : Less Than 3 SecondsLess Than 3 Seconds General Appearance: No Apparent Distress, WD/WN HEENT: PERRL/EOMI, Moist Mucous Membranes; No Scleral Icterus (L), No Scleral Icterus (R); Other (jaw wired shut) Respiratory: Lungs Clear, No Accessory Muscle Use, No Respiratory Distress Cardiovascular: Regular Rate, Rhythm, No Murmur Gastrointestinal: non tender, soft Extremity: No Pedal Edema, Other (Left leg cast in place) Neurologic/Psychiatric: Alert, Oriented x3, Normal Mood/Affect Skin: Normal Color, Warm/Dry Results Lab Microbiology 05/20/19 Gram Stain - Final, Complete 05/20/19 Sputum Culture - Final, Complete Usual upper respiratory anibal Fungus Assessment/Plan Assessment/Plan Assessment/Plan Assessment: -left hemo/pneumothorax, resolved -left clavicle fracture, repaired surgically -Mandibular fracture, repaired surgically -left scapula fracture -left rib fractures Plan: Continue with current care. Still waiting on SNF placement. Clinical Quality Measures DVT/VTE Risk/Contraindication: Risk Factor Score Per Nursin RFS Level Per Nursing on Admit: 4+=Very High DYLAN IRWIN DO 06/01/19 1730: Subjective Time Seen by a Provider: 16:14 Subjective/Events-last exam Pt seen in good spirits, no changes today. Tolerating diet and asked when he gets wire out. Review of Systems Pulmonary: No Dyspnea, No Cough Cardiovascular: No: Chest Pain, Palpitations Gastrointestinal: No: Nausea, Vomiting, Abdominal Pain Objective Exam General Appearance: No Apparent Distress, WD/WN Respiratory: Lungs Clear, Normal Breath Sounds Cardiovascular: Regular Rate, Rhythm, No Murmur Gastrointestinal: non tender, soft Assessment/Plan Assessment/Plan Assessment/Plan Will find out about timing of getting wires from jaw closure out. Continue diet as tolerated and pain control. Supervisory-Addendum Brief Verification & Attestation Participated in pt care: history, MDM, physical Personally performed: exam, history, MDM Care discussed with: Medical Student Procedures: n/a Verification and Attestation of Medical Student E/M Service A medical student performed and documented this service in my presence. I reviewed and verified all information documented by the medical student and made modifications to such information, when appropriate. I personally performed the physical exam and medical decision making. Dylan Irwin, Jun 01, 2019,17:30 BHARGAVI SOLIS,MED STUDENT Jun 01, 2019 17:23 DYLAN IRWIN DO Jun 01, 2019 17:30
[2019-06-01 20:00] VITALS: BP 118/75
[2019-06-01] MEDS: POLYETHYLENE GLYCOL 17 GM (MIRALAX) PACK PO SCH (20:03)
[2019-06-02] VITALS: BP 119/70
[2019-06-02] MEDS: HYDROmorphone (DILAUDID) 2 MG TAB PO PRN ×6 (01:21→22:32)
[2019-06-02 04:20] VITALS: BP 117/70
[2019-06-02] MEDS: IBUPROFEN TABLET 200 MG TAB PO PRN ×4 (06:15→18:37)
[2019-06-02 08:00] VITALS: BP 118/74
[2019-06-02] MEDS: DOCUSATE SODIUM 100 MG (COLACE) CAP PO SCH ×2 (09:01→20:41)
[2019-06-02] MEDS: PANTOPRAZOLE 40 MG (PROTONIX) TAB PO SCH (09:01)
[2019-06-02 12:00] VITALS: BP 109/69
--- NOTE | 2019-06-02 13:18 | Progress Note - Surgery ---
BHARGAVI SOLIS,MED STUDENT 06/02/19 1318: Subjective Date Seen by a Provider: Jun 02, 2019 Time Seen by a Provider: 11:28 Subjective/Events-last exam Patient seen and examined this morning. 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 Denies pain, but is ready for the wires in his jaw to come out. Review of Systems General: No Chills, No Fatigue Pulmonary: No Dyspnea, No Cough Cardiovascular: No: Chest Pain, Palpitations Gastrointestinal: No: Nausea, Vomiting, Abdominal Pain Neurological: No: Weakness, Numbness Objective Exam Vital Signs Date Time Temp Pulse Resp B/P (MAP) Pulse Ox O2 Delivery O2 Flow Rate FiO2 06/02/19 12:00 36.6 72 16 109/69 (82) 100 Room Air 06/02/19 09:07 Room Air 06/02/19 08:20 Room Air 06/02/19 08:00 36.4 70 18 118/74 (89) 98 Room Air 06/02/19 04:20 36.2 68 20 117/70 (86) 98 Room Air 06/02/19 03:16 Room Air 06/02/19 00:00 36.1 78 20 119/70 (86) 96 Room Air 06/01/19 20:00 Room Air 06/01/19 20:00 35.6 105 20 118/75 (89) 96 Room Air 06/01/19 16:00 36.5 86 16 111/78 (89) 99 Room Air I & O 06/02/19 07:00 Intake Total 2690 ml Output Total 2150 ml Balance 540 ml Capillary Refill : Less Than 3 SecondsLess Than 3 Seconds General Appearance: No Apparent Distress, WD/WN HEENT: PERRL/EOMI, Moist Mucous Membranes; No Scleral Icterus (L), No Scleral Icterus (R); Other (jaw wired shut) Neck: Non Tender, Supple; No Lymphadenopathy (L), No Lymphadenopathy (R) Respiratory: Lungs Clear, No Accessory Muscle Use, No Respiratory Distress Cardiovascular: Regular Rate, Rhythm, No Murmur Peripheral Pulses: 2+ Radial Pulses (R), 2+ Radial Pulses (L) Gastrointestinal: non tender, soft; No distended, No tenderness Extremity: Other (Left leg cast in place) Neurologic/Psychiatric: Alert, Oriented x3, Normal Mood/Affect Skin: Normal Color, Warm/Dry Results Lab Microbiology 05/20/19 Gram Stain - Final, Complete 05/20/19 Sputum Culture - Final, Complete Usual upper respiratory anibal Fungus Assessment/Plan Assessment/Plan Assessment/Plan Assessment: -left hemo/pneumothorax, resolved -left clavicle fracture, repaired surgically -Mandibular fracture, repaired surgically, jaw still wired shut -left scapula fracture -left rib fractures Plan: -Continue current care. Patients jaw surgery was done on 05/27/2018, so hoping the wires can be taken out tomorrow, which will be post-op day 7. Clinical Quality Measures DVT/VTE Risk/Contraindication: Risk Factor Score Per Nursin RFS Level Per Nursing on Admit: 4+=Very High DYLAN IRWIN DO 06/02/19 1359: Subjective Time Seen by a Provider: 11:59 Subjective/Events-last exam Pt seen and examined, doing well with no complaints and no changes. Review of Systems Pulmonary: No Cough Cardiovascular: No: Chest Pain, Palpitations Gastrointestinal: No: Nausea, Vomiting, Abdominal Pain Musculoskeletal: shoulder pain Objective Exam General Appearance: No Apparent Distress, WD/WN Respiratory: Lungs Clear, No Accessory Muscle Use, No Respiratory Distress Cardiovascular: Regular Rate, Rhythm, No Murmur Gastrointestinal: non tender, soft; No distended Assessment/Plan Assessment/Plan Assessment/Plan I will give Dr. Durbin a call tomorrow to find out plan for jaw wires. Continue current care. Supervisory-Addendum Brief Verification & Attestation Participated in pt care: history, MDM, physical Personally performed: exam, history, MDM Care discussed with: Medical Student Procedures: n/a Verification and Attestation of Medical Student E/M Service A medical student performed and documented this service in my presence. I reviewed and verified all information documented by the medical student and made modifications to such information, when appropriate. I personally performed the physical exam and medical decision making. Dylan Irwin, Jun 02, 2019,13:59 BHARGAVI SOLIS,MED STUDENT Jun 02, 2019 13:18 DYLAN IRWIN DO Jun 02, 2019 13:59
[2019-06-02 16:00] VITALS: BP 112/56
[2019-06-02 20:16] VITALS: BP 116/63
[2019-06-02] MEDS: POLYETHYLENE GLYCOL 17 GM (MIRALAX) PACK PO SCH (20:41)
[2019-06-03] VITALS: BP 117/67
[2019-06-03] MEDS: IBUPROFEN TABLET 200 MG TAB PO PRN ×2 (00:23→21:28)
[2019-06-03] MEDS: HYDROmorphone (DILAUDID) 2 MG TAB PO PRN ×5 (03:29→21:28)
[2019-06-03 04:00] VITALS: BP 111/70
--- NOTE | 2019-06-03 07:31 | Progress Note - Surgery ---
BHARGAVI SOLIS,MED STUDENT 06/03/19 0731: Subjective Date Seen by a Provider: Jun 03, 2019 Time Seen by a Provider: 06:21 Subjective/Events-last exam Patient seen and examined this morning. He is resting comfortably in bed. No complaints, denies any pain. Review of Systems Pulmonary: No Dyspnea, No Cough Cardiovascular: No: Chest Pain, Palpitations, Edema Gastrointestinal: No: Nausea, Vomiting, Abdominal Pain Neurological: No: Numbness Objective Exam Vital Signs Date Time Temp Pulse Resp B/P (MAP) Pulse Ox O2 Delivery O2 Flow Rate FiO2 06/03/19 04:00 36.4 64 18 111/70 (84) 98 Room Air 06/03/19 01:17 Room Air 06/03/19 00:00 36.1 61 16 117/67 (84) 99 Room Air 06/02/19 20:40 Room Air 06/02/19 20:16 36.6 72 20 116/63 (80) 100 Room Air 06/02/19 16:00 36.6 82 20 112/56 (74) 99 Room Air 06/02/19 12:00 36.6 72 16 109/69 (82) 100 Room Air 06/02/19 09:07 Room Air 06/02/19 08:20 Room Air 06/02/19 08:00 36.4 70 18 118/74 (89) 98 Room Air I & O 06/03/19 07:00 Intake Total 3655 ml Output Total 3075 ml Balance 580 ml Capillary Refill : Less Than 3 SecondsLess Than 3 Seconds General Appearance: No Apparent Distress, WD/WN HEENT: PERRL/EOMI, Moist Mucous Membranes; No Scleral Icterus (L), No Scleral Icterus (R); Other (jaw wired shut) Respiratory: Chest Non Tender, Lungs Clear, No Accessory Muscle Use, No Respiratory Distress Cardiovascular: Regular Rate, Rhythm, No Murmur Peripheral Pulses: 2+ Radial Pulses (R), 2+ Radial Pulses (L) Gastrointestinal: non tender, soft; No distended Extremity: Other (Left leg cast in place) Neurologic/Psychiatric: Alert, Oriented x3, Normal Mood/Affect Skin: Normal Color, Warm/Dry Results Lab Microbiology 05/20/19 Gram Stain - Final, Complete 05/20/19 Sputum Culture - Final, Complete Usual upper respiratory anibal Fungus Assessment/Plan Assessment/Plan Assessment/Plan Assessment: -left hemo/pneumothorax, resolved -left clavicle fracture, repaired surgically -Mandibular fracture, repaired surgically, jaw still wired shut -left scapula fracture -left rib fractures Plan: Continue current care. Still waiting to hear about SNF placement. Clinical Quality Measures DVT/VTE Risk/Contraindication: Risk Factor Score Per Nursin RFS Level Per Nursing on Admit: 4+=Very High DYLAN IRWIN DO 06/03/19 1437: Subjective Time Seen by a Provider: 13:23 Subjective/Events-last exam Pt seen and examined, no complaints just asking about getting wires removed. Nurse and SW both relay that pt was a little tearful and were concerned. Pt when asked if needed anything else or was feeling sad, said no. Objective Exam General Appearance: No Apparent Distress, WD/WN Respiratory: Lungs Clear, No Accessory Muscle Use Cardiovascular: Regular Rate, Rhythm Gastrointestinal: non tender, soft Assessment/Plan Assessment/Plan Assessment/Plan Called Dr. Durbin to find out about timing of removing jaw wires; left message. Pt told he can use wheelchair and we can get him out to some fresh air if desired. Told not to use Left arm and call if he has any concerns. Supervisory-Addendum Brief Verification & Attestation Participated in pt care: history, MDM, physical Personally performed: exam, history, MDM Care discussed with: Medical Student Procedures: n/a Verification and Attestation of Medical Student E/M Service A medical student performed and documented this service in my presence. I reviewed and verified all information documented by the medical student and made modifications to such information, when appropriate. I personally performed the physical exam and medical decision making. Dylan Irwin, Jun 03, 2019,14:36 BHARGAVI SOLIS,MED STUDENT Jun 03, 2019 07:31 DYLAN IRWIN DO Jun 03, 2019 14:37
[2019-06-03 08:00] VITALS: BP 117/67
[2019-06-03] MEDS: PANTOPRAZOLE 40 MG (PROTONIX) TAB PO SCH (08:11)
[2019-06-03] MEDS: DOCUSATE SODIUM 100 MG (COLACE) CAP PO SCH ×2 (08:11→21:28)
--- NOTE | 2019-06-03 09:49 | Physical Therapy Daily Note ---
PT Daily Note-Current Subjective Pt states he is doing all of his UE and LE ex's as instructed throughout the day. Appearance Pt sitting up in recliner awake and alert upon arrival. At end of session, pt sitting up in recliner with visitors present, call light, phone and bedside table within reach. Mental Status Patient Orientation: Eyes Open, Normal For Age Transfers SCALE: Activities may be completed with or without assistive devices. 3-Uvxtdzfnhn-mhmmdgj completes the activity by him/herself with no assistance from a helper. 5-Set-up or Clean-up Assistance-helper sets up or cleans up; patient completes activity. [place] assists only prior to or following the activity. 4-Supervision or Touching Assistance-helper provides verbal cues and/or touching/steadying and/or contact guard assistance as patient completes activity. Assistance may be provided throughout the activity or intermittently. 3-Partial/Moderate Assistance-helper does LESS THAN HALF the effort. [place] lifts, holds or supports trunk or limbs, but provides less than half the effort. 2-Substantial/Maximal Assistance-helper does MORE THAN HALF the effort. [place] lifts or holds trunk or limbs and provides more than half the effort. 2-Zspyfptjl-xndtom does ALL the effort. Patient does none of the effort to complete the activity. Or, the assistance of 2 or more helpers is required for the patient to complete the activity. If activity was not attempted, code reason: 7-Patient Refused. 9-Not Applicable-not attempted and the patient did not perform the activity before the current illness, exacerbation or injury. 10-Not Attempted due to Environmental Limitations-(lack of equipment, weather restraints, etc.). 88-Not Attempted due to Medical Conditions or Safety Concerns. Sit to Lying (QC): 5 Lying to Sitting/Side of Bed(Q: 5 Chair/Tqd-gq-Ujrvs Xfer(QC): 5 (sqat pivot) Toilet Transfer (QC): 5 Weight Bearing Right Lower Extremity: Right Partial Weight Bearing Left Lower Extremity: Left Non Weight Bearing Gait Training Does the Patient Walk?: No and Walking Goal NOT indicated Exercises Supine Ex: Ankle pumps, Heel Slides, Straight leg raise, Hip abd/add Seated Therapy Exercises: Long arc quads, Hip flexion, Hip abd/add pt following all WB precautions during ex's as instructed Treatments 08:25 AM: Pt sitting up in bathroom chair independently bathing, pt requesting later visit. 09:31 am: pt sitting up up in recliner awake and alert, states he is I in all exercises and bed/chair/toilet transfers, nursing confirms. Pt states he is doing all ex's as instructed and able to demo. States concern that he is not able to go home at this time and that he thinks his only option is to go to a fdc until he is able to start getting up and walking/moving more but will not be walking for a while due to his multiple fx's and WB precautions in UE's and LE's. Pt is able to recite all precautions correctly without cuing. Assessment Pt is set up to mod I with all transfers, demonstrating I with LE ex's. Is aware of all WB precautions PT Short Term Goals Short Term Goals Time Frame: May 25, 2019 Roll Left & Right: 3 Sit to lyin Lying to sitting on side of be: 3 Does pt use a wc or scooter: No PT Care Home Goals Vocal Artist Goals PT Care Home Goals Time Frame: Jun 08, 2019 Roll Left & Right (QC): 6 Sit to Lying (QC): 6 Lying-Sitting on Side/Bed(QC): 6 Chair/Pvf-pn-Dgkpx Xfer(QC): 6 Toilet Transfer (QC): 6 PT Plan Treatment/Plan Treatment Plan: Continue Plan of Care Treatment Plan: Bed Mobility, Education, Functional Activity Oscar, Functional Strength, Gait, Therapeutic Exercise, Transfers Treatment Duration: Jun 08, 2019 Frequency: 6 times per week Estimated Hrs Per Day: .25 hour per day Safety Risks/Education Patient Education: Transfer Techniques, Disease Process, Safety Issues Teaching Recipient: Patient Teaching Methods: Discussion Response to Teaching: Verbalize Understanding Time/GCodes Time In: 931 Time Out: 951 Total Billed Treatment Time: 20 Total Billed Treatment 1 visit, EX x1 unit DONNMARTA GANT Jun 03, 2019 09:49
--- NOTE | 2019-06-03 11:28 | Occupational Ther Daily Note ---
OT Current Status-Daily Note Subjective Pt alert, sitting in recliner. Pt agrees to therapy. Per physicians note, pt educated on Codman's exercise and AROM of elbow. No c/o pain at this time. Mental Status/Objective Patient Orientation: Person, Place, Time, Situation ADL-Treatment Therapy Code Descriptions/Definitions Functional [place] Measure: 0=Not Assessed/NA 4=Minimal Assistance 1=Total Assistance 5=Supervision or Setup 2=Maximal Assistance 6=Modified [place] 3=Moderate Assistance 7=Complete IndependenceSCALE: Activities may be completed with or without assistive devices. 4-Kgclyejvxs-viatggt completes the activity by him/herself with no assistance from a helper. 5-Set-up or Clean-up Assistance-helper sets up or cleans up; patient completes activity. [place] assists only prior to or following the activity. 4-Supervision or Touching Assistance-helper provides verbal cues and/or touching/steadying and/or contact guard assistance as patient completes activity. Assistance may be provided throughout the activity or intermittently. 3-Partial/Moderate Assistance-helper does LESS THAN HALF the effort. [place] lifts, holds or supports trunk or limbs, but provides less than half the effort. 2-Substantial/Maximal Assistance-helper does MORE THAN HALF the effort. [place] lifts or holds trunk or limbs and provides more than half the effort. 5-Gpanbudlk-duettd does ALL the effort. Patient does none of the effort to complete the activity. Or, the assistance of 2 or more helpers is required for the patient to complete the activity. If activity was not attempted, code reason: 7-Patient Refused. 9-Not Applicable-not attempted and the patient did not perform the activity before the current illness, exacerbation or injury. 10-Not Attempted due to Environmental Limitations-(lack of equipment, weather restraints, etc.). 88-Not Attempted due to Medical Conditions or Safety Concerns. Other Treatment Pt educated on Codman's exercise in sitting due to NWB status. Pt demonstrated good technique with exercise. Pt instructed to complete 2 sets 10 reps 2x daily for the first few days then increase to 3 sets 10 reps daily. Pt given bicep/tricep strengthening by tensing muscles and holding for 5 secs each as to not stress shldr/clavicle. Wrist flexion/extension strengthening exercises, 3 sets 10 reps 2x's per day. After therapy, pt sitting in recliner with call light/phone in reach. All needs met in room. Education OT Patient Education: Exercise program Teaching Recipient: Patient Teaching Methods: Demonstration, Discussion Response to Teaching: Verbalize Understanding, Return Demonstration OT Detention Goals Detention Goals Time Frame: May 25, 2019 Eating (QC): 6 Oral Hygiene (QC): 6 Toileting Hygiene (QC): 2 Shower/Bathe Self (QC): 3 Upper Body Dressing (QC): 4 Lower Body Dressing (QC): 2 On/Off Footwear (QC): 5 Additional Goals: 1-Demonstrate ADL Tasks, 2-Verbalize Understanding, 3- ImproveStrength/Oscar 1=Demonstrate adherence to instructed precautions during ADL tasks. 2=Patient will verbalize/demonstrate understanding of assistive devices/modifications for ADL. 3=Patient will improve strength/tolerance for activity to enable patient to perform ADL's. OT Education/Plan Problem List/Assessment Assessment: Decreased UE Strength, Restricted Funct UE ROM Discharge Recommendations Plan/Recommendations: Continue POC Treatment Plan/Plan of Care Patient would benefit from OT for education, treatment and training to promote independence in ADL's, mobility, safety and/or upper extremity function for ADL's. Plan of Care: ADL Retraining, Concurrent Therapy, Functional Mobility, Orthotic Fitting/Training, UE Funct Exercise/Act, W/C Management Training Treatment Duration: May 25, 2019 Frequency: 5 times per week Estimated Hrs Per Day: .25 hour per day Agreement: Yes Rehab Potential: Good Time/GCodes Start Time: 11:10 Stop Time: 11:20 Total Time Billed (hr/min): 10 Billed Treatment Time 1 visit-EX 1 (10 min) JESU WOLFF Jun 03, 2019 11:28
--- NOTE | 2019-06-03 11:33 | Progress Note - Ortho ---
Progress Note Subjective Date of Exam 06/03/19 Chief Complaint POD#17 closed IM rodding right femoral shaft fracture and open reduction internal fixation medial malleolus left ankle HPI/Events since last exam Mr. Oliva is doing well. Pain right hip or thigh. No pain left ankle. Decreasing pain left shoulder. Decreasing pain mandible fracture Review of Systems Reviewed and no additions or changes Allergies: Coded Allergies: No Known Drug Allergies (Unverified , 03/14/17) Home Meds No Active Prescriptions or Reported Meds Objective Exam Constitutional: [] HEENT: [] Neck: [] Cardiovascular: [] Respiratory: [] Gastrointestinal: [] Genitourinary: [] Skin: [] Back/Spine: [] Extremities: Left shoulderdressing intact. Neurovascularly intact left upper extremity Short leg cast left lower extremity in good condition. No pain at the knee. Able to move the toes with normal sensation and good capillary refill Right lower extremitygood motion hip without pain. Good motion knee without pain. No calf tenderness and negative Homans. Normal sensation to the foot and toes with good cap refill and good pulses [] Neurologic: [] Psychiatric: [] Hematologic/lymphatic/immunologic: [] Vital Signs Vital Signs Date Time Temp Pulse Resp B/P (MAP) Pulse Ox O2 Delivery O2 Flow Rate FiO2 06/03/19 08:00 Room Air 06/03/19 08:00 37.1 103 16 117/67 (84) 95 Room Air 06/03/19 04:00 36.4 64 18 111/70 (84) 98 Room Air 06/03/19 01:17 Room Air 06/03/19 00:00 36.1 61 16 117/67 (84) 99 Room Air 06/02/19 20:40 Room Air 06/02/19 20:16 36.6 72 20 116/63 (80) 100 Room Air 06/02/19 16:00 36.6 82 20 112/56 (74) 99 Room Air 06/02/19 12:00 36.6 72 16 109/69 (82) 100 Room Air I & O 06/03/19 07:00 Intake Total 3655 ml Output Total 3075 ml Balance 580 ml Lab Results Microbiology 05/20/19 Gram Stain - Final, Complete 05/20/19 Sputum Culture - Final, Complete Usual upper respiratory anibal Fungus Assessment and Plan Assessment Doing well postop Problem List No changes Plan Continue nonweightbearing on the left. Full weightbearing for transfers otherwise partial weightbearing on the right. No weightbearing to the left upper extremity Final Diagonsis Status post IM rodding right femoral shaft fracture Status post open reduction internal fixation medial malleolus left ankle Status post open reduction internal fixation left clavicle Level of the visit: Level 3 Clinical Quality Measures DVT/VTE Risk/Contraindication: Risk Factor Score Per Nursin RFS Level Per Nursing on Admit: 4+=Very High ZANE GRECO MD Jun 03, 2019 11:33
[2019-06-03 12:00] VITALS: BP 112/75
[2019-06-03 16:00] VITALS: BP 127/73
[2019-06-03 19:49] VITALS: BP 118/58
[2019-06-03] MEDS: POLYETHYLENE GLYCOL 17 GM (MIRALAX) PACK PO SCH (21:29)
[2019-06-04 00:15] VITALS: BP 111/57
[2019-06-04] MEDS: HYDROmorphone (DILAUDID) 2 MG TAB PO PRN ×5 (01:27→21:21)
[2019-06-04 04:10] VITALS: BP 121/68
[2019-06-04] MEDS: IBUPROFEN TABLET 200 MG TAB PO PRN ×4 (05:54→22:25)
[2019-06-04 08:00] VITALS: BP 99/62
--- NOTE | 2019-06-04 08:32 | Progress Note - Surgery ---
BHARGAVI SOLIS,MED STUDENT 06/04/19 0832: Subjective Date Seen by a Provider: Jun 04, 2019 Time Seen by a Provider: 07:40 Subjective/Events-last exam Patient seen and examined this morning. States he called Dr. Devries office yesterday to find out about when the wires will be taken out of his mouth, and he should be coming today to take them out. Denies any pain or trouble breathing. No complaints at this time. Review of Systems General: No Chills HEENT: No Head Aches Pulmonary: No Dyspnea, No Cough Cardiovascular: No: Chest Pain, Palpitations Gastrointestinal: No: Nausea, Vomiting, Abdominal Pain, Diarrhea, Constipation Objective Exam Vital Signs Date Time Temp Pulse Resp B/P (MAP) Pulse Ox O2 Delivery O2 Flow Rate FiO2 06/04/19 00:15 36.2 74 18 111/57 (75) 99 Room Air 06/03/19 19:49 37.0 94 18 118/58 (78) 100 Room Air 06/03/19 19:45 Room Air 06/03/19 19:00 Room Air 06/03/19 16:00 37.2 83 20 127/73 (91) 100 Room Air 06/03/19 12:00 36.7 86 18 112/75 (87) 98 Room Air 06/03/19 11:32 Room Air I & O 06/04/19 07:00 Intake Total 3177 ml Output Total 1475 ml Balance 1702 ml Capillary Refill : Less Than 3 SecondsLess Than 3 Seconds General Appearance: No Apparent Distress, WD/WN HEENT: PERRL/EOMI, Moist Mucous Membranes; No Scleral Icterus (L), No Scleral Icterus (R); Other (jaw wired shut) Respiratory: Lungs Clear, No Accessory Muscle Use, No Respiratory Distress Cardiovascular: Regular Rate, Rhythm Peripheral Pulses: 2+ Radial Pulses (R), 2+ Radial Pulses (L) Gastrointestinal: normal bowel sounds, non tender, soft Extremity: Other (Left leg cast in place) Neurologic/Psychiatric: Alert, Oriented x3, Normal Mood/Affect Skin: Normal Color, Warm/Dry Results Lab Microbiology 05/20/19 Gram Stain - Final, Complete 05/20/19 Sputum Culture - Final, Complete Usual upper respiratory anibal Fungus Assessment/Plan Assessment/Plan Assessment/Plan Assessment: -left hemo/pneumothorax, resolved -left clavicle fracture, repaired surgically -Mandibular fracture, repaired surgically, jaw still wired shut -left scapula fracture -left rib fractures Plan: Continue current care. Wires should come out today. Clinical Quality Measures DVT/VTE Risk/Contraindication: Risk Factor Score Per Nursin RFS Level Per Nursing on Admit: 4+=Very High DYLAN DIAZ DO 06/04/19 1203: Subjective Time Seen by a Provider: 11:46 Subjective/Events-last exam Pt seen and examined, states Dr. Durbin is coming at noon and [employer] is going to take him for 2 weeks. Assessment/Plan Assessment/Plan Assessment/Plan Awaiting placement Supervisory-Addendum Brief Verification & Attestation Participated in pt care: history, MDM, physical Personally performed: history, MDM Care discussed with: Medical Student Procedures: n/a Verification and Attestation of Medical Student E/M Service A medical student performed and documented this service in my presence. I reviewed and verified all information documented by the medical student and made modifications to such information, when appropriate. I personally performed the physical exam and medical decision making. Dylan Diaz, Jun 04, 2019,12:03 BHARGAVI SOLIS,MED STUDENT Jun 04, 2019 08:32 DYLAN DIAZ DO Jun 04, 2019 12:03
--- NOTE | 2019-06-04 09:14 | Physical Therapy Progress Note ---
Therapy Progress Note Discussed discharge with patient. He is performing transfers from bed<-> chair on his own and is compliant with his weight bearing status. He has been performing his LE exercise regimen on his own twice a day. Patient cannot ambulate at this time due to his weight bearing status. PT will discharge patient at this time due to him being independent with mobility and exercises. Patient advised to continue with his LE exercises like he has already been doing. CARMELITA NAVA PT Jun 04, 2019 09:14
[2019-06-04] MEDS: PANTOPRAZOLE 40 MG (PROTONIX) TAB PO SCH (09:16)
[2019-06-04] MEDS: DOCUSATE SODIUM 100 MG (COLACE) CAP PO SCH ×2 (09:16→21:21)
--- NOTE | 2019-06-04 11:28 | Occupational Ther Daily Note ---
OT Current Status-Daily Note Subjective No pain reported. Mental Status/Objective Patient Orientation: Person, Place, Time, Situation ADL-Treatment Therapy Code Descriptions/Definitions Functional [facility] Measure: 0=Not Assessed/NA 4=Minimal Assistance 1=Total Assistance 5=Supervision or Setup 2=Maximal Assistance 6=Modified [facility] 3=Moderate Assistance 7=Complete IndependenceSCALE: Activities may be completed with or without assistive devices. 4-Siuemwmtku-tfquamn completes the activity by him/herself with no assistance from a helper. 5-Set-up or Clean-up Assistance-helper sets up or cleans up; patient completes activity. [place] assists only prior to or following the activity. 4-Supervision or Touching Assistance-helper provides verbal cues and/or touching/steadying and/or contact guard assistance as patient completes activity. Assistance may be provided throughout the activity or intermittently. 3-Partial/Moderate Assistance-helper does LESS THAN HALF the effort. [place] lifts, holds or supports trunk or limbs, but provides less than half the effort. 2-Substantial/Maximal Assistance-helper does MORE THAN HALF the effort. [place] lifts or holds trunk or limbs and provides more than half the effort. 2-Rzodxeqlv-eqlukf does ALL the effort. Patient does none of the effort to complete the activity. Or, the assistance of 2 or more helpers is required for the patient to complete the activity. If activity was not attempted, code reason: 7-Patient Refused. 9-Not Applicable-not attempted and the patient did not perform the activity before the current illness, exacerbation or injury. 10-Not Attempted due to Environmental Limitations-(lack of equipment, weather restraints, etc.). 88-Not Attempted due to Medical Conditions or Safety Concerns. Pt. returning from bathroom via rolling chair when OT entered room. Pt. states that he is independent within his precautions for all ADLs, including bathing, dressing, toileting. Pt. able to verbalize all of his weight bearing precautions. Independent with his transfers per him and PT. OT went over UE exercises one more time with him. Pt. is able to demonstrate and verbalize independence with Codman's exercise for left shoulder, as well as elbow, wrist, and hand. OT provided yellow theraband for gentle stretch to wrists. Also provided handout with visuals of Codman's and scapular function. Pt. verbalizes understanding. Pt. verbalizes possible need for therapy to resume when weight bearing restrictions are lifted. All needs met in room. OT to discharge pt. at this time due to independence with functional tasks and exercises overall. Education OT Patient Education: Correct positioning, Exercise program, Home exercise program, Purpose of tx/functional activities, Reviewed precautions, Rehab process Teaching Recipient: Patient Teaching Methods: Demonstration, Discussion Response to Teaching: Verbalize Understanding, Return Demonstration OT Used Car Salesperson Goals Nursing Home Goals Time Frame: May 25, 2019 Eating (QC): 6 (met) Oral Hygiene (QC): 6 (met) Toileting Hygiene (QC): 2 (met per pt.) Shower/Bathe Self (QC): 3 (met per pt.) Upper Body Dressing (QC): 4 (met per pt.) Lower Body Dressing (QC): 2 (met per pt.) On/Off Footwear (QC): 5 (met per pt.) Additional Goals: 1-Demonstrate ADL Tasks, 2-Verbalize Understanding, 3- ImproveStrength/Oscar 1=Demonstrate adherence to instructed precautions during ADL tasks. 2=Patient will verbalize/demonstrate understanding of assistive devices/modifications for ADL. 3=Patient will improve strength/tolerance for activity to enable patient to perform ADL's. OT Education/Plan Problem List/Assessment Assessment: No Skilled OT Needs ID'd Discharge Recommendations Plan/Recommendations: Discharge/Goals Met Treatment Plan/Plan of Care Treatment,Training & Education: Yes Plan of Care: OTHER (Discharge) Treatment Duration: Jun 04, 2019 Frequency: 5 times per week Estimated Hrs Per Day: .25 hour per day Agreement: Yes Rehab Potential: Good Time/GCodes Start Time: 09:35 Stop Time: 09:50 Total Time Billed (hr/min): 15 Billed Treatment Time 1, Ex x 15minutes Discharge at this time. JAYSON MELGAR OT Jun 04, 2019 11:28
[2019-06-04 16:00] VITALS: BP 122/71
--- NOTE | 2019-06-04 16:10 | NUR ---
CM/SS: Phone call to mother of pt Xochitl Serna - per patient request. Pt asked that this worker call his mother to give her the latest update on his status for placement. This worker explains to Xochitl that referrals have been made, however pt has been denies based on the [employer] insurance being primary, and [employer] secondary. The option for pt to go to assisted living and private pay. Pt request to see if his mother can pay for his stay at assisted living. Jeannine reports that she is unable to pay for the stay and that money is tight. She request that this worker call Luisa, sister in law of pt to see if she is an option. She is currently living in [place]. She also shares alot of other information about choices the pt has made and wished she could help. She appreciates the help in working with her son, and thanked this worker for calling.
--- NOTE | 2019-06-04 16:24 | NUR ---
CM/SS: Pt requested that a Phone Call to Luisa be made - she is Sister in law of pt. She is the pt's 's sister. She shares its it not an option for pt to come to her home to stay with her as she lives on the second floor. She reports having three children that are teens, and also shares that she works 60 to 70 hours per week and would like to help with pt's kids, that are her niece and nephew and take some of the burden off of pt's brother. She would like that plan and is frustrated that she is not able to help pt or help with the kids. She too, expresses frustration with the situation. She appreciates this worker calling and said she will talk more with the pt as to the plan for the children.
--- NOTE | 2019-06-04 16:31 | NUR ---
CM/SS: Discharge planning process Summary: [facility] ([facility], and [facility]) here to meet with pt to discuss options for self pay at their facility prior to a bed being open in Inpatient Rehab.
[2019-06-04] MEDS: POLYETHYLENE GLYCOL 17 GM (MIRALAX) PACK PO SCH (21:20)
[2019-06-05 00:43] VITALS: BP 118/61
[2019-06-05] MEDS: HYDROmorphone (DILAUDID) 2 MG TAB PO PRN ×5 (02:48→20:23)
[2019-06-05] MEDS: IBUPROFEN TABLET 200 MG TAB PO PRN ×3 (04:18→20:23)
[2019-06-05 08:13] VITALS: BP 115/76
[2019-06-05] MEDS: PANTOPRAZOLE 40 MG (PROTONIX) TAB PO SCH (08:18)
[2019-06-05] MEDS: DOCUSATE SODIUM 100 MG (COLACE) CAP PO SCH ×2 (08:22→20:22)
--- NOTE | 2019-06-05 13:59 | NUR ---
"RD ASSESSMENT PMHx: multiple fractures (current admit) PT INTERACTION: Pt was awake and pleasant during nutrition follow-up. Pt states he has been eating well since last assessment. Note avg PO intake >75% x3d, per chart review. Pt states no recent issues with n/v/c/d since last assessment. Note last BM was 06/04 and pt currently on bowel regimen of miralax HS: and colace BID, per chart review. ABNORMAL NUTRITION-RELATED LAB VALUES All Labs WNL Est. kcal needs: 9381-1686 kcal | 25-30 kcal/kg Est. Pro needs: 92-115 g Pro | 1.2-1.5 g Pro/kg PES STATEMENT: Given pt's current PO intake, no nutrition diagnosis at this time (NO-1.1) INTERVENTION: Continue with current diet order of Regular diet. Will continue to follow and reassess as pt needs and status change. MONITOR/EVALUATE: PO Intake; Plan of Care; Hydration Status; Weight Status; Lab Values Whitney Burton, MS, RD, LD"
[2019-06-05 16:00] VITALS: BP 125/79
--- NOTE | 2019-06-05 16:52 | Progress Note - Surgery ---
Subjective Time Seen by a Provider: 16:38 Subjective/Events-last exam Pt seen and examined, in good spirits with no complaints Review of Systems Pulmonary: No Dyspnea, No Cough Cardiovascular: No: Chest Pain, Palpitations Gastrointestinal: No: Nausea, Vomiting Musculoskeletal: shoulder pain Objective Exam Vital Signs Date Time Temp Pulse Resp B/P (MAP) Pulse Ox O2 Delivery O2 Flow Rate FiO2 06/05/19 08:13 36.7 73 16 115/76 (89) 99 Room Air 06/05/19 08:00 Room Air 06/05/19 00:43 36.9 77 18 118/61 (80) 98 Room Air 06/04/19 21:20 Room Air I & O 06/05/19 07:00 Intake Total 3300 ml Output Total 702 ml Balance 2598 ml Capillary Refill : Less Than 3 SecondsLess Than 3 Seconds General Appearance: No Apparent Distress, WD/WN HEENT: PERRL/EOMI, Moist Mucous Membranes; No Scleral Icterus (L), No Scleral Icterus (R); Other (jaw wired shut) Respiratory: Lungs Clear, No Accessory Muscle Use, No Respiratory Distress Cardiovascular: Regular Rate, Rhythm Peripheral Pulses: 2+ Radial Pulses (R), 2+ Radial Pulses (L) Gastrointestinal: normal bowel sounds, non tender, soft Extremity: Other (Left leg cast in place) Neurologic/Psychiatric: Alert, Oriented x3, Normal Mood/Affect Results Lab Microbiology 05/20/19 Gram Stain - Final, Complete 05/20/19 Sputum Culture - Final, Complete Usual upper respiratory anibal Fungus Assessment/Plan Assessment/Plan Assessment/Plan Plan to send to SNF tomorrow for 2 weeks and then Inpt rehab for 2 weeks. Pt is excited and happy. Clinical Quality Measures DVT/VTE Risk/Contraindication: Risk Factor Score Per Nursin RFS Level Per Nursing on Admit: 4+=Very High GINA DIAZ DO Jun 05, 2019 16:52
[2019-06-06] VITALS: BP 116/75
[2019-06-06] MEDS: HYDROmorphone (DILAUDID) 2 MG TAB PO PRN ×4 (02:17→14:47)
[2019-06-06] MEDS: POLYETHYLENE GLYCOL 17 GM (MIRALAX) PACK PO SCH (02:20)
[2019-06-06] MEDS: IBUPROFEN TABLET 200 MG TAB PO PRN ×2 (05:51→14:46)
[2019-06-06 07:31] VITALS: BP 115/61
[2019-06-06] MEDS: PANTOPRAZOLE 40 MG (PROTONIX) TAB PO SCH (08:07)
[2019-06-06] MEDS: DOCUSATE SODIUM 100 MG (COLACE) CAP PO SCH (08:07)
--- NOTE | 2019-06-06 12:42 | Progress Note - Surgery ---
Subjective Time Seen by a Provider: 12:38 Subjective/Events-last exam Pt seen and examined, no changes. He is being d/c'd today. Review of Systems General: No Chills Pulmonary: No Dyspnea, No Cough Cardiovascular: No: Chest Pain, Palpitations Gastrointestinal: No: Nausea, Vomiting Objective Exam Vital Signs Date Time Temp Pulse Resp B/P (MAP) Pulse Ox O2 Delivery O2 Flow Rate FiO2 06/06/19 11:38 Room Air 06/06/19 08:00 Room Air 06/06/19 07:31 37.2 59 16 115/61 (79) 98 Room Air 06/06/19 05:52 36.2 06/06/19 05:51 36.2 06/06/19 03:41 Room Air 06/06/19 02:50 36.2 06/06/19 02:17 36.2 06/06/19 00:00 36.2 72 16 116/75 (89) 98 Room Air 06/05/19 20:53 36.2 06/05/19 20:23 36.6 06/05/19 20:00 98 Room Air 3.00 06/05/19 16:00 36.6 76 20 125/79 (94) 99 Room Air I & O 06/06/19 07:00 Intake Total 2840 ml Output Total 1400 ml Balance 1440 ml Capillary Refill : Less Than 3 SecondsLess Than 3 Seconds General Appearance: No Apparent Distress, WD/WN HEENT: PERRL/EOMI, Moist Mucous Membranes; No Scleral Icterus (L), No Scleral Icterus (R); Other (jaw wired shut) Respiratory: Lungs Clear, No Accessory Muscle Use, No Respiratory Distress Cardiovascular: Regular Rate, Rhythm Peripheral Pulses: 2+ Radial Pulses (R), 2+ Radial Pulses (L) Gastrointestinal: normal bowel sounds, non tender, soft Extremity: Other (Left leg cast in place) Neurologic/Psychiatric: Alert, Oriented x3, Normal Mood/Affect Results Lab Microbiology 05/20/19 Gram Stain - Final, Complete 05/20/19 Sputum Culture - Final, Complete Usual upper respiratory anibal Fungus Assessment/Plan Assessment/Plan Assessment/Plan Plan to send to SNF tomorrow for 2 weeks and then Inpt rehab for 2 weeks. Pt is excited and happy. Clinical Quality Measures DVT/VTE Risk/Contraindication: Risk Factor Score Per Nursin RFS Level Per Nursing on Admit: 4+=Very High GINA DIAZ DO Jun 06, 2019 12:42
[2019-06-06] MEDS ORDERED: HYDR2TAB6 PO (12:44)
--- NOTE | 2019-06-06 12:46 | Discharge Inst-Surgical ---
Discharge Inst-Surgical Depart Medication/Instructions New, Converted or Re-Newed RX: RX Given to Pt/Family Patient Instructions Follow up Appt: Make appointment to follow up with Orthopedic specialists and Oral- maxillofacial. Instructions: No lifting greater than 20 pounds. No strenuous activity. May shower in 24 hours, no tub bath or soaking. Use incentive spirometer at home as directed. No Smoking Skin/Wound Care: Care per Ortho and Oral-Maxillofacial physicians Symptoms to Report: Appetite Changes, Extremity Discoloration, Numbness/Tingling, Swelling Increased, Bleeding Excessive, Eyesight Changes, Pain Increased, Urine Color Change, Constipation(Persistent), Fever over 101 degree F, Pain/Pressure in chest, Urinating Difficulty, Cough Up/Vomit Blood, Heart Beat Irreg/Pounding, Pain/Pressure in jaw, Cramps in feet or legs, Lightheadedness, Pain/Pressure in shoulder, Diarrhea(Persistent), Memory Changes Suddenly, Questions/Concerns, Weight gain consecutive days, Dizziness/Fainting, Nausea/Vomiting, Shortness of Breath, Weight gain over 2 pounds If questions or concerns contact your physician Or seek help at emergency department. Activity Activity as Tolerated: Yes Driving Instructions: No Driving/Refer to Dr. Smith Discharge Diet: No Restrictions Diet After 24 Hours: Clear Liquid if Nauseous If Any Problems/Questions/Issu: Contact Your Physician, Go to Emergency Room Skin/Wound Care Infection Signs and Symptoms: Increased Redness, Foul Odor of Wound, Increased Drainage, Skin Itchy or Has a Rash, Increased Swelling, Temperature Above 101 F Stitches/Yelena/Dermabond Dis: Care of GINA Grady DO Jun 06, 2019 12:46
[2019-06-06 15:13] VITALS: BP 115/61
--- NOTE | 2019-06-07 07:54 | NUR ---
CM/SS: Visited with pt as to plan for discharge Plan: Pt will discharge today 06-06-18, to extended stay hotel, until he can return to the hospital for inpatient rehab when he is able to bear weight, then return home. Summary: Pt's mother Christi Serna called at 8:36am expressing concern about the plan for pt to go to the extended stay. Options are discussed. She wants to ensure that it is handicap accessible for pt and that he will have food and can get around. Mother of pt reassured that those things will be checked into. She is also reminded that pt chose this avenue of discharge base on limited finances. She also shares that they can help with a week of cost to the extended stay and or food for pt. She expressed appreciation for this worker and the help given to her son. Visit with pt. He has information on cost of the extended stay and this worker discusses another option of extended stay that is cheaper. Pt is open to that, and the extended stay is called and they verify their rate along with verifying that they are handicapped accessible. Pt does confirm that he has a ride that can pick him up. Wheelchair discussed. This worker contacted [facility]. They report some complexity in getting the wheelchair based on car insurance, and verify that paying for one out right is approximately $1100.00. This worker talks with inpatient rehab, as pt will return there in a couple of weeks and determines they have a loaner wheelchair they can give pt, and pt will return when he no longer needs the wheelchair in approximately two weeks. Pt has two follow up appts and is given information and phone numbers on the [facility], general transportation, and [employer]. Pt verbalizes understanding as to getting to the appointments. Pt's father also calls while this worker is in the room. He reports he can also help with cost associated with extended stay. Pt reports he has also sent money to get clothes to go over his cast. Pt is given loaner wheelchair from Inpatient Rehab. Pt's ride is present, and he is given discharge instructions from RN. Pt expresses appreciation to this worker, he is given this workers contact information if he would have questions or concerns.
== END 2019-06-06 15:10 | DRG 956 ==
LOC: EDUNIT# 14:02 → ER 14:03 → SDC 16:56 → ICU 18:59 → SDC 21:14 → ICU 21:14 → 4TH 05-22 10:05
PROVIDERS: ADMIT Surgery; ATTEND Orthopaedic Surgery
PROC: 0HQEXZZ Repair Left Lower Arm Skin, External Approach (ICD-10-PCS; 2019-05-17)
PROC: 0QS836Z Reposition Right Femoral Shaft with Intramedullary Internal Fixation Device, Percutaneous Approach (ICD-10-PCS; principal; 2019-05-17 17:57)
PROC: 0QSH04Z Reposition Left Tibia with Internal Fixation Device, Open Approach (ICD-10-PCS; 2019-05-17 17:57)
PROC: 0W9B30Z Drainage of Left Pleural Cavity with Drainage Device, Percutaneous Approach (ICD-10-PCS; 2019-05-18)
PROC: 0PSB04Z Reposition Left Clavicle with Internal Fixation Device, Open Approach (ICD-10-PCS; 2019-05-29)
DX: S72.321A Displaced transverse fracture of shaft of right femur, initial encounter for closed fracture (principal); S27.2XXA Traumatic hemopneumothorax, initial encounter; S02.642B Fracture of ramus of left mandible, initial encounter for open fracture; S27.0XXA Traumatic pneumothorax, initial encounter; S27.321A Contusion of lung, unilateral, initial encounter; S22.42XA Multiple fractures of ribs, left side, initial encounter for closed fracture; S06.0X9A Concussion with loss of consciousness of unspecified duration, initial encounter; S82.52XA Displaced fracture of medial malleolus of left tibia, initial encounter for closed fracture; S82.302A Unspecified fracture of lower end of left tibia, initial encounter for closed fracture; S42.112A Displaced fracture of body of scapula, left shoulder, initial encounter for closed fracture; S42.022A Displaced fracture of shaft of left clavicle, initial encounter for closed fracture; S02.2XXA Fracture of nasal bones, initial encounter for closed fracture; S51.012A Laceration without foreign body of left elbow, initial encounter; S16.1XXA Strain of muscle, fascia and tendon at neck level, initial encounter; F12.90 Cannabis use, unspecified, uncomplicated; F10.129 Alcohol abuse with intoxication, unspecified; F17.210 Nicotine dependence, cigarettes, uncomplicated; V43.52XA Car driver injured in collision with other type car in traffic accident, initial encounter; Z23 Encounter for immunization; K59.00 Constipation, unspecified
CPT/HCPCS: 36415; 51702; 70450; 70486; 71045; 71260; 72125; 72128; 72131; 72170; 73110; 73552; 73610; 73630; 73700; 74177; 80048; 80076; 80306; 80320; 81000; 82550; 83605; 83735; 84100; 85014; 85018; 85025; 85027; 85379; 85384; 85610; 85730; 86850; 86900; 86901; 86920; 87070; 87081; 87106; 87205; 90471; 90715; 93005; 94640; 94760; 96365; 96375; 99291; 99292

== ENCOUNTER → 2019-06-19 | Outpatient (CLI) | payer OTHER ==
[~2019-06-19] MED LIST changes: +HYDR2TAB6 PO
--- NOTE | 2019-06-19 08:56 | Diagnostic Imaging Report ---
EXAMINATION: Right femur at 8:40 AM. INDICATION: Followup fracture. TECHNIQUE: AP and lateral views were obtained. FINDINGS: As noted on the prior exam of 05/31/2019, there is an intramedullary mukesh securing a comminuted fracture of the midportion of the right femur. The orthopedic hardware appears to be in good position. The main fracture fragments are similar in alignment to the prior exam and there has been healing callus formation in the interval since the prior exam. There is no fracture or acute bony abnormality noted. The soft tissues are unremarkable. IMPRESSION: There is a stable healing comminuted fracture of the midshaft of the right femur. The orthopedic hardware remains in good position. Dictated by: Dictated on workstation # [id number]
--- NOTE | 2019-06-19 08:57 | Diagnostic Imaging Report ---
INDICATION: Medial malleolar fracture. COMPARISON: 05/31/2019. TECHNIQUE: 3 radiographs of the left ankle dated 06/19/2019. FINDINGS: 2 screws are again identified transfixing previously noted medial malleolar fracture. Alignment appears stable without evidence of hardware complication. Slight blurring of the fracture margins is noted without significant periosteal reaction. Tiny calcific densities with minimal periosteal reaction associated with the lateral malleolus. No new fracture or dislocation. The talar dome is unremarkable. Ankle mortise is symmetric. No suspicious radiopaque foreign body. IMPRESSION: Internally fixated medial malleolar fracture remaining in stable alignment. Slight blurring of the fracture margins may relate to early resorption healing. Recommend continued radiographic follow-up. Healing nondisplaced avulsion fracturing associated with the lateral malleolus. No new acute osseous abnormality. Dictated by: Dictated on workstation # [id number]
== END ==
LOC: ORTHO 08:14
PROVIDERS: ATTEND Orthopaedic Surgery
DX: S72.321A Displaced transverse fracture of shaft of right femur, initial encounter for closed fracture (principal); S82.52XA Displaced fracture of medial malleolus of left tibia, initial encounter for closed fracture; V43.52XA Car driver injured in collision with other type car in traffic accident, initial encounter
CPT/HCPCS: 27810; 73552; 73610

== ENCOUNTER 2019-07-01 10:10 | Outpatient (RCR) | payer OTHER | END 2019-09-15 | disposition home or self-care (01) | PROVIDERS: ATTEND Surgery | DX: S72.321D Displaced transverse fracture of shaft of right femur, subsequent encounter for closed fracture with routine healing (principal); S82.52XD Displaced fracture of medial malleolus of left tibia, subsequent encounter for closed fracture with routine healing; S42.022D Displaced fracture of shaft of left clavicle, subsequent encounter for fracture with routine healing; S02.642D Fracture of ramus of left mandible, subsequent encounter for fracture with routine healing; V43.52XD Car driver injured in collision with other type car in traffic accident, subsequent encounter ==

== ENCOUNTER → 2019-07-03 | Outpatient (CLI) | payer OTHER ==
--- NOTE | 2019-07-03 09:24 | Diagnostic Imaging Report ---
INDICATION: Fracture. 4 views were obtained. FINDINGS: There are stable postsurgical changes of open reduction and internal fixation of right femur fracture with intramedullary mukesh and screws. Alignment remains satisfactory. There appears to be slight interval callus formation. IMPRESSION: Stable alignment of the right femur fracture with some minimal interval callus formation. Dictated by: Dictated on workstation # [id number]
--- NOTE | 2019-07-03 09:46 | Diagnostic Imaging Report ---
EXAMINATION: Left ankle radiographs, 3 views. COMPARISON: June 19, 2019. HISTORY: 38-year-old male, left ankle pain. History of fracture. FINDINGS: There are 2 lag screws traversing the previously noted transversely oriented fracture through the base of the medial malleolus. The fixation screws appear intact. There is a redemonstrated fracture line without significant interval bony callus bridging or periosteal reaction. There is no change in fracture alignment. The alignment of the ankle mortise is unremarkable. There is no large tibiotalar joint effusion. IMPRESSION: 1. Intact lag screws traversing the fracture of the medial malleolus without interval healing response at the current time. There is no change in fracture alignment. Dictated by: Dictated on workstation # [id number]
== END ==
LOC: ORTHO 08:37
PROVIDERS: ATTEND Orthopaedic Surgery
DX: S72.321A Displaced transverse fracture of shaft of right femur, initial encounter for closed fracture (principal); S82.52XA Displaced fracture of medial malleolus of left tibia, initial encounter for closed fracture; V43.52XA Car driver injured in collision with other type car in traffic accident, initial encounter
CPT/HCPCS: 73552; 73610